=== PATIENT | female | born 1935 | race Caucasian/White ===

== ENCOUNTER 2019-08-23 16:41 | Inpatient (IN) | payer OTHER ==
[2019-08-23] MEDS ORDERED: ACETAMINOPHEN 1000 MG/100 ML VIAL (NON FORMULARY) IVPB ONE (17:32)
[2019-08-23] MEDS ORDERED: ACETAMINOPHEN INJECTION 100 ML IVPB ONE (17:45)
[2019-08-23 17:51] LABS: BASO % 0.5 % (0-2.0); EOS % 0.6 % (0-4.5); HEMATOCRIT 36.7 % (32.4-45.2); HEMOGLOBIN 12.2 GM/dL (10.7-15.3); LYMPH % 10.9 % (8-40); MCH 28.3 pg (25.7-33.7); MCHC 33.4 g/dl (32.0-36.0); MEAN CELL VOLUME 84.9 fl (80-96); MEAN PLT VOLUME 7.1 fl (7.5-11.1); MONO % 7.2 % (3.8-10.2); NEUT % 80.8 % (42.8-82.8); PLATELET COUNT 411 K/MM3 (134-434); RBC 4.32 M/mm3 (3.60-5.2); RDW 13.8 % (11.6-15.6); WHITE BLOOD COUNT 15.3 K/mm3 (4.0-10.0)
--- NOTE | 2019-08-23 17:55 | PDOC ---
History of Present Illness - General Chief Complaint: Back Pain Stated Complaint: LOWER BACK PAIN Time Seen by Provider: 08/23/19 17:10 - History of Present Illness Initial Comments: 08/23/19 18:01 Pt is an 84y/o female with HTN, DM, and breast cancer s/p lumpectomy 5 years ago who presents with sudden onset back pain 7 days ago. Pt had a fall down the stairs in March and broke her left ankle. She was doing physical therapy exercises on her back and flexed her left leg at the hip then felt pain in her lower back. She is under the care of Dr. Ivan for her ankle and was given Tramadol, Skelaxin, and steroids with no improvement in symptoms. She reports tightness in b/l buttocks radiating into lateral legs below the knee. For the last 3 days she has had pain so severe that she is unable to walk. Pain is currently 8/10. She reports a remote hx of lumbar herniated disc but has not had problems in years. Pt reports she has been eating normally but may be drinking less than usual. Past History - Past Medical History Allergies/Adverse Reactions: Allergies Allergy/AdvReac Type Severity Reaction Status Date / Time No Known Allergies Allergy Verified 08/23/19 16:53 Home Medications: Ambulatory Orders Calcium Carbonate/Vitamin D3 [Calcium 600 + Vit D Tablet] 1 tab PO BID 08/23/19 Lactobacillus Acidophilus [Acidophilus] 1 each PO BID 08/23/19 Losartan/Hydrochlorothiazide [Losartan-Hctz 100-25 mg Tab] 1 tab PO DAILY Metaxalone [Skelaxin] 800 mg PO Q8H PRN 08/23/19 Metformin HCl [Glucophage] 1,000 mg PO BID 08/23/19 Metoprolol Succinate 100 mg PO DAILY 08/23/19 Naproxen 500 mg PO Q12H PRN 08/23/19 Prednisone 10 mg PO Q12H 08/23/19 Tramadol HCl 50 mg PO Q6H PRN 08/23/19 Amlodipine Besylate [Norvasc -] 5 mg PO DAILY 08/24/19 COPD: No Diabetes: Yes HTN: Yes Other medical history: HERNIATED DISC - Immunization History Immunization Up to Date: No - Psycho Social/Smoking Cessation Hx Smoking History: Never smoked Have you smoked in the past 12 months: No Information on smoking cessation initiated: No Hx Alcohol Use: No Drug/Substance Use Hx: No Review of Systems - Review of Systems Constitutional: No: Chills, Fever Respiratory: No: Symptoms reported Cardiac (ROS): No: Symptoms Reported ABD/GI: No: Nausea, Vomiting : No: Dysuria Musculoskeletal: Yes: Back Pain Integumentary: No: Bruising Neurological: No: Headache *Physical Exam - Vital Signs Last Vital Signs Temp Pulse Resp BP Pulse Ox 98.4 F 85 16 154/63 99 08/23/19 16:55 08/23/19 16:55 08/23/19 16:55 08/23/19 16:55 08/23/19 16:55 - Physical Exam General Appearance: Yes: Nourished, Appropriately Dressed, Other (difficulty getting comfortable in bed). No: Apparent Distress HEENT: positive: EOMI, JACOBY Neck: positive: Trachea midline Respiratory/Chest: positive: Lungs Clear Cardiovascular: positive: Regular Rhythm, Regular Rate. negative: Murmur Gastrointestinal/Abdominal: positive: Normal Bowel Sounds. negative: Tender Musculoskeletal: positive: Muscle Spasm (b/l glutes with tight IT bands), Other (no saddle anesthesia). negative: Vertebral Tenderness Neurologic: positive: attending ambulatory care II-XII NML intact, Fully Oriented, Alert, Normal Mood/ Affect, Motor Strength 5/5. negative: Sensory Deficit ED Treatment Course - LABORATORY CBC & Chemistry Diagram: 08/25/19 07:10 08/25/19 07:10 - ADDITIONAL ORDERS Additional order review: 08/23/19 17:35 RBC 4.32 MCV 84.9 MCHC 33.4 RDW 13.8 MPV 7.1 L Neutrophils % 80.8 Lymphocytes % 10.9 Monocytes % 7.2 Eosinophils % 0.6 Basophils % 0.5 - Medications Given in the ED: ED Medications Discontinued Medications Generic Name Dose Route Start Last Admin Trade Name Freq PRN Reason Stop Dose Admin Acetaminophen 1,000 mg 08/23/19 17:32 08/23/19 17:54 Ofirmev Injection - IVPB 08/23/19 17:33 1,000 mg ONCE ONE Administration Medical Decision Making - Medical Decision Making 08/23/19 18:20 Pt is an 84y/o female with HTN, DM, and breast cancer s/p lumpectomy 5 years ago who presents with sudden onset back pain 7 days ago following PT exercise of left hip flexion. ddx: muscle spasm, sciatica, disc herniation, cauda equina orders: CBC, CMP, Ofrimev Pt reports decreased numbness and tingling in legs following Ofrimev but back pain is still present. 08/23/19 18:25 WBC 15.3, likely reactive from steroids elevated BUN, no comparison; BG 188 08/23/19 19:05 CT lumbar w/o contrast, Robaxin, and Tylenol #3, will give Zofran ODT if pt becomes nauseous 08/23/19 23:05 Pt reports pain was not controlled for long. Will give morphine 2mg IV and reassess. CT read pending. 08/24/19 00:05 Disc bulging at L2-L3, L3-L4 disc bulging with foraminal narrowing, L4-L5 disc bulging with probable right side herniated component affecting the right anterior canal and right foramen. It may also impress on the right L5 nerve root in the lateral recess, and the right L4 nerve root as it exits. Pt is unable to ambulate. Pain is improved with morphine. Will have pt admitted for inability to ambulate. Discharge - Discharge Information Problems reviewed: Yes Clinical Impression/Diagnosis: Muscle spasm, Lumbar disc herniation with radiculopathy Condition: Stable - Follow up/Referral - Patient Discharge Instructions - Post Discharge Activity
[2019-08-23 18:19] LABS: ALBUMIN 3.5 g/dl (3.4-5.0); BILIRUBIN,TOTAL 0.2 mg/dL (0.2-1); BLOOD UREA NITROGEN 31.8 mg/dL (7-18); CALCIUM 9.3 mg/dL (8.5-10.1); CREATININE 0.8 mg/dL (0.55-1.3); MAGNESIUM 1.8 mg/dL (1.8-2.4); POTASSIUM 3.8 mmol/L (3.5-5.1); TOT PROT 7.5 g/dl (6.4-8.2)
--- NOTE | 2019-08-23 18:20 | PDOC ---
Attending Attestation - Resident Resident Name: [email or web address] - ED Attending Attestation I have performed the following: I have examined & evaluated the patient, The case was reviewed & discussed with the resident, I agree w/resident's findings & plan, Exceptions are as noted - HPI HPI: 84 yo F history HTN, DM, breast CA s/p lumpectomy 5 years ago presents with 1 week of low back pain. She states she has been in PT for a few months for an ankle fracture, and her exercises have been increasing in intensity since that time. Recently she states she did not have any direct trauma, but has been working harder at PT, and states that over the past week it has progressively worsened. Now she is unable to stand and walk. Denies weakness. Pain radiates from back down into both legs and feet, mainly the lateral areas. Pain is severe. Not responding to NSAIDs, steroids, and muscle relaxers. - Physicial Exam PE: GENERAL: Awake, alert, and fully oriented, in no acute distress HEAD: No signs of trauma EYES: PERRLA, EOMI, sclera anicteric, conjunctiva clear ENT: Auricles normal inspection, hearing grossly normal, nares patent, oropharynx clear without exudates. Moist mucosa NECK: Normal ROM, supple, no lymphadenopathy, JVD, or masses LUNGS: Breath sounds equal, clear to auscultation bilaterally. No wheezes, and no crackles HEART: Regular rate and rhythm, normal S1 and S2, no murmurs, rubs or gallops ABDOMEN: Soft, nontender, normoactive bowel sounds. No guarding, no rebound. No masses EXTREMITIES: +Muscle spasms to the B/L buttocks and outer thighs. SLR positive at 20 degrees on L, 45 degrees on R. Limited ROM of the lower extremities due to severe back and leg pain. Upper extremities with normal range of motion, no edema. No clubbing or cyanosis. No cords, erythema, or tenderness NEUROLOGICAL: Cranial nerves II through XII grossly intact. Normal speech. Motor and sensation intact. Unable to test gait due to severe pain SKIN: Warm, dry, normal turgor, no rashes or lesions noted. - Medical Decision Making Discussed pain options with family- as tramadol is not working, will try Tylenol #3. If no improvement, will give a dose of percocet. If both fail, will give IV pain meds, at which point she will need admission for pain control. Will give robaxin for the significant muscle spasms. Will obtain Lumbar CT, as she does not have recent imaging.
[2019-08-23] MEDS ORDERED: ACETAMINOPHEN WITH CODEINE 300MG/30MG TABLET PO ONE (19:00)
[2019-08-23] MEDS ORDERED: METHOCARBAMOL 500 MG TABLET PO ONE (19:01)
[2019-08-23] MEDS ORDERED: ACETAMINOPHEN WITH CODEINE 300MG/30MG TABLET ONE (19:23)
[2019-08-23] MEDS ORDERED: METHOCARBAMOL 500 MG TABLET ONE (19:23)
[2019-08-23] MEDS ORDERED: morphine CARPU-JECT 4 MG/1 ML DISP.SYRIN IVPUSH ONE (22:52)
[2019-08-23] MEDS ORDERED: MORPHINE SULFATE 2 MG/ML VIAL ONE (23:22)
--- NOTE | 2019-08-24 00:54 | PN ---
Teaching Attending Note Name of Resident: Vito Arora ATTENDING PHYSICIAN STATEMENT I saw and evaluated the patient. I reviewed the resident's note and discussed the case with the resident. I agree with the resident's findings and plan as documented. SUBJECTIVE: 84y/o female with HTN, DM, and breast cancer s/p lumpectomy 5 years ago who presents with a complaint of back pain which she has had for about a week, status post fallMarch 2019, subsequently was undergoing physical therapy and experience back pain which started about 2 weeks ago during her physical therapy. She has lumbar back pain which radiates down both lower extremities. Has been taking prednisone, tramadol, naproxen with some relief however pain is worsened over the past couple days prompting patient to seek medical attention. No loss of bladder or bowel control. OBJECTIVE: Last Vital Signs Temp Pulse Resp BP Pulse Ox 98.4 F 73 16 142/76 97 08/23/19 16:55 08/24/19 00:00 08/24/19 00:00 08/24/19 00:00 08/24/19 00:00 GENERAL: Well developed, well nourished. Awake and alert. No acute distress. HEENT: Normocephalic, atraumatic. PERRLA, EOMI. No conjunctival pallor. Sclera are non- icteric. Moist mucous membranes. Oropharynx is clear. NECK: Supple. Full ROM. No JVD. Carotid pulses 2+ and symmetric, without bruits. No thyromegaly. No lymphadenopathy. CARDIOVASCULAR: Regular rate and rhythm. No murmurs, rubs, or gallops. Distal pulses are 2+ and symmetric. PULMONARY: No evidence of respiratory distress. Lungs clear to auscultation bilaterally. No wheezing, rales or rhonchi. ABDOMINAL: Soft. Non-tender. Non-distended. No rebound or guarding. No organomegaly. Normoactive bowel sounds. MUSCULOSKELETAL Normal range of motion at all joints. No bony deformities or tenderness. No CVA tenderness. EXTREMITIES: No cyanosis. No clubbing. No edema. No calf tenderness. SKIN: Warm and dry. Normal capillary refill. No rashes. No jaundice. NEUROLOGICAL: Positive straight leg raise bilaterally, negative patellar hyperreflexia bilaterally PSYCHIATRIC: Cooperative. Good eye contact. Appropriate mood and affect. Abnormal Lab Results 08/23/19 08/23/19 17:35 17:35 WBC 15.3 H MPV 7.1 L Absolute Neuts (auto) 12.4 H BUN 31.8 H Random Glucose 188 H Imaging studies reviewed CT of lumbar spine without contrast was performedslight radha-listhesis of L3 on L4, had L2-3 there is disc bulging with possible left lateral herniated component narrowing the left foramen. At L3-4 disc bulging with possible left lateral herniated component narrowing the left foramen. At L3-4, disc bulging, radha-listhesis and posterior element hypertrophy result in spinal canal and bilateral foraminal narrowing. L4-5 disc bulging with a probable right-sided herniated component affecting the right anterior canal and right foramen. ASSESSMENT AND PLAN: 84-year-old woman with severe back pain, significant spondylosis, herniated disks as described above on lumbar CT. Bilateral sciatica, unable to ambulate as a result. Admit to MedSurg Dexamethasone 10 mg IV stat and then every 6 hours Morphine 2 mg IV prn Bedrest and fall precautions Physical therapy evaluation Neurosurgery evaluation for possible surgical intervention #HTN- -Continue with home dose metoprolol succinate, losartan/hydrochlorothiazide Salt restriction #DM NovoLog sliding scale Glargine insulin Diabetic diet A1c DVT prophylaxisheparin subcutaneously
--- NOTE | 2019-08-24 01:32 | HP ---
CHIEF COMPLAINT: back pain PCP: Dr. Metz HISTORY OF PRESENT ILLNESS: Patient is an 84 year old female with history of recent left ankle fracture, hypertension, diabetes mellitus, breast cancer (s/p lumpectomy) presents with complaint of back pain. States symptoms began after she fell down stairs and broke her left ankle in March 2019. she has been going to physical therapy, and notes that approx two weeks ago her back pain began after performing supine leg lifting exercises. Describes the pain as a squeezing pressure that originates in her lumbar spine, and radiates down posterior/ medial aspect of left leg. Patient visited her orthopedic physician (Dr. Foley) who prescribed Prednisone, Metaxalone, Tramadol, Naproxen. However, the pain has progressed over the past few days, worsening to point that patient had difficulty getting up from bed, and was unable to ambulate. Denies bowel or bladder incontinence. Denies any recent trauma subsequent to her fall in March. ER course was notable for: (1) CT lumbar spine (2) (3) Recent Travel: denies PAST MEDICAL HISTORY: left ankle fracture, hypertension, diabetes mellitus, breast cancer PAST SURGICAL HISTORY: lumpectomy right breast (aprox 5 years ago), cholecystectomy, Family history -Mother: hypertension, stroke -Father: hypertension, ?cardiac history Social History: Patient has been living with her children who were assisting the patient with activities of daily living. Currently requires wheelchair to ambulate (formerly ambulated without cane or walker). Smoking: Endorses 6 pack year history, quit at 25 years old Alcohol: Denies alcohol consumption Drugs: Denies illicit drug use Allergies No Known Allergies Allergy (Verified 08/23/19 16:53) HOME MEDICATIONS: Home Medications Medication Instructions Recorded Calcium Carbonate/Vitamin D3 1 tab PO BID 08/23/19 [Calcium 600 + Vit D Tablet] Lactobacillus Acidophilus 1 each PO BID 08/23/19 [Acidophilus] Losartan/Hydrochlorothiazide 1 tab PO DAILY 08/23/19 [Losartan-Hctz 100-25 mg Tab] Metaxalone [Skelaxin] 800 mg PO Q8H PRN 08/23/19 Metformin HCl [Glucophage] 1,000 mg PO BID 08/23/19 Metoprolol Succinate 100 mg PO DAILY 08/23/19 Naproxen 500 mg PO Q12H PRN 08/23/19 Prednisone 10 mg PO Q12H 08/23/19 Tramadol HCl 50 mg PO Q6H PRN 08/23/19 REVIEW OF SYSTEMS CONSTITUTIONAL: Absent: fever, chills, diaphoresis, generalized weakness, malaise, loss of appetite, weight change HEENT: Absent: rhinorrhea, nasal congestion, throat pain, throat swelling, difficulty swallowing, mouth swelling, ear pain, eye pain, visual changes CARDIOVASCULAR: Absent: chest pain, syncope, palpitations, irregular heart rate, lightheadedness , peripheral edema RESPIRATORY: Absent: cough, shortness of breath, dyspnea with exertion, orthopnea, wheezing, stridor, hemoptysis GASTROINTESTINAL: Absent: abdominal pain, abdominal distension, nausea, vomiting, diarrhea, constipation, melena, hematochezia GENITOURINARY: Absent: dysuria, frequency, urgency, hesitancy, hematuria, flank pain, genital pain MUSCULOSKELETAL: Admits: back pain. Absent: myalgia, arthralgia, joint swelling, neck pain SKIN: Absent: rash, itching, pallor HEMATOLOGIC/IMMUNOLOGIC: Absent: easy bleeding, easy bruising, lymphadenopathy, frequent infections ENDOCRINE: Absent: unexplained weight gain, unexplained weight loss, heat intolerance, cold intolerance NEUROLOGIC: Absent: headache, focal weakness or paresthesias, dizziness, unsteady gait, seizure, mental status changes, bladder or bowel incontinence PSYCHIATRIC: Absent: anxiety, depression, suicidal or homicidal ideation, hallucinations. PHYSICAL EXAMINATION Vital Signs - 24 hr 08/23/19 08/24/19 16:55 00:00 Temperature 98.4 F Pulse Rate 85 Pulse Rate [ 73 Left Radial] Respiratory 16 16 Rate Blood Pressure 154/63 Blood Pressure 142/76 [Left Arm] O2 Sat by Pulse 99 97 Oximetry (%) GENERAL: The patient is awake, alert, and fully oriented, in no acute distress. HEAD: Normocephalic, atraumatic. EYES: PERRL, extraocular movements intact, sclera anicteric, conjunctiva clear. ENT: Oropharynx clear, without erythema or exudates. Moist mucous membranes. NECK: Trachea midline, full range of motion. Supple without lymphadenopathy. LUNGS: Breath sounds equal, clear to auscultation bilaterally. No wheezes, no crackles. No accessory muscle use. HEART: Regular rate and rhythm. S1, S2 without murmur, rub or gallop. ABDOMEN: Soft, nondistended, nontender to light and deep palpation x4 quadrants. No rebound tenderness, no guarding. Normoactive bowel sounds x4 quadrants. No hepatosplenomegaly, no masses appreciated. EXTREMITIES: 2+ radial, dorsalis pedis pulses bilaterally. Warm, well-perfused. No lower extremity edema bilaterally. Left ankle s/p fracture. NEUROLOGICAL: Cranial nerves II through XII grossly intact. Normal speech. Lower extremity strength 4/5 in hip flexion, extension, and 5/5 knee flexion, extension, dorsiflexion, plantarflexion. Sensation grossly intact bilateral upper and lower extremities. PSYCH: Normal mood, normal affect upon my encounter. SKIN: Warm, dry. 1cm area or erythema at left medial malleolus. Laboratory Results - last 24 hr 08/23/19 08/23/19 17:35 17:35 WBC 15.3 H RBC 4.32 Hgb 12.2 Hct 36.7 MCV 84.9 MCH 28.3 MCHC 33.4 RDW 13.8 Plt Count 411 MPV 7.1 L Absolute Neuts (auto) 12.4 H Neutrophils % 80.8 Lymphocytes % 10.9 Monocytes % 7.2 Eosinophils % 0.6 Basophils % 0.5 Nucleated RBC % 0 Sodium 137 Potassium 3.8 Chloride 100 Carbon Dioxide 27 Anion Gap 10 BUN 31.8 H Creatinine 0.8 Est GFR (CKD-EPI)AfAm 79.57 Est GFR (CKD-EPI)NonAf 68.66 Random Glucose 188 H Calcium 9.3 Magnesium 1.8 Total Bilirubin 0.2 AST 17 ALT 29 Alkaline Phosphatase 66 Total Protein 7.5 Albumin 3.5 ASSESSMENT/PLAN: Patient is an 84 year old female with history of recent left ankle fracture, hypertension, diabetes mellitus, breast cancer (s/p lumpectomy) presents with complaint of back pain. Lumbar spine anterolisthesis -CT lumbar spine reveals CT of lumbar spine reveals anterolisthesis of L3, L4, disc bulging with possible left lateral herniated component narrowing the left foramen L2-3, and L3-L4. L4-5 disc bulging with a probable right-sided herniated component affecting the right anterior canal and right foramen. Possible L5 nerve root impingement. Follow official read. -Will obtain MRI spine to further evaluate -Neurosurgery consult (Dr. Orona) -Physical therapy evaluation -Decadron 10mg IV Q6 hours -Continue Metaxalone 800mg PO TID. Holding NSAIDs pending neurosurgery evaluation. -Ofirmev 1000mg IV Q6 hours PRN for pain 1-5 -Morphine 2mg IV Q6 hours PRN for pain 6-10 Hypertension -Losartan 100mg PO daily -Hydrochlorothiazide 25mg PO daily -Metoprolol 100mg PO daily Diabetes mellitus -Insulin sliding scale ACHS -Fingerstick blood glucose monitoring ACHS FEN -IV normal saline at 100mL/ hour -Follow BMP -Diabetic, sodium diet Prophylaxis -SCDs bilateral lower extremities Disposition -Admit to medical- surgical floor. Visit type - Emergency Visit Emergency Visit: Yes ED Registration Date: 08/24/19 Care time: The patient presented to the Emergency Department on the above date and was hospitalized for further evaluation of their emergent condition. - New Patient This patient is new to me today: Yes Date on this admission: 08/24/19 - Critical Care Critical Care patient: No ATTENDING PHYSICIAN STATEMENT I saw and evaluated the patient. I reviewed the resident's note and discussed the case with the resident. I agree with the resident's findings and plan as documented. SUBJECTIVE: OBJECTIVE: ASSESSMENT AND PLAN:
[2019-08-24] MEDS ORDERED: SODIUM CHLORIDE 1,000 ML IV SCH (01:45)
[2019-08-24] MEDS ORDERED: MORPHINE SULFATE 2 MG/ML VIAL ONE (02:11)
[2019-08-24] MEDS: MORPHINE SULFATE 2 MG/ML VIAL IM PRN ×3 (02:15→15:30)
[2019-08-24] MEDS ORDERED: PATIENT'S OWN MEDICATION (NON-FORMULARY) (Metaxalone [Skelaxin] 800 MG) PO PRN (03:34)
[2019-08-24] MEDS ORDERED: HYDROCHLOROTHIAZIDE 25 MG TABLET (FP) PO ONE (03:45)
[2019-08-24] MEDS: ACETAMINOPHEN 1000 MG/100 ML VIAL (NON FORMULARY) IVPB PRN ×3 (04:38→21:18)
[2019-08-24] MEDS: DEXAMETHASONE SOD PHOSPHATE 10 MG/1 ML VIAL IVPUSH SCH ×4 (06:26→21:18)
[2019-08-24] MEDS: INSULIN SLIDING SCALE (NOVOLOG) 1 VIAL SQ SCH ×3 (06:29→17:57)
[2019-08-24 07:23] LABS: HEMATOCRIT 33.9 % (32.4-45.2); HEMOGLOBIN 11.5 GM/dL (10.7-15.3); MCH 28.8 pg (25.7-33.7); MEAN CELL VOLUME 84.5 fl (80-96); MEAN PLT VOLUME 7.1 fl (7.5-11.1); PLATELET COUNT 362 K/MM3 (134-434); RBC 4.01 M/mm3 (3.60-5.2); RDW 14.2 % (11.6-15.6); WHITE BLOOD COUNT 11.1 K/mm3 (4.0-10.0)
[2019-08-24 07:32] LABS: INR 1.08 (0.83-1.09); PROTHROMBIN TIME (PATIENT) 12.8 SEC (9.7-13.0)
[2019-08-24 07:49] LABS: ALBUMIN 3.2 g/dl (3.4-5.0); BILIRUBIN,TOTAL 0.3 mg/dL (0.2-1); BLOOD UREA NITROGEN 31.1 mg/dL (7-18); CALCIUM 8.8 mg/dL (8.5-10.1); CREATININE 0.7 mg/dL (0.55-1.3); MAGNESIUM 1.9 mg/dL (1.8-2.4); PHOSPHOROUS 3.3 mg/dL (2.5-4.9); POTASSIUM 3.3 mmol/L (3.5-5.1); TOT PROT 6.7 g/dl (6.4-8.2)
[2019-08-24] MEDS ORDERED: PT OWN MED DRAWER 7, Y5N ONE (09:06)
[2019-08-24] MEDS: LOSARTAN 50MG/HCTZ 12.5MG 1 TAB (FP) PO SCH (09:39)
[2019-08-24] MEDS: DOCUSATE SODIUM 100 MG CAPSULE (FP) PO SCH ×2 (09:39→21:18)
[2019-08-24] MEDS ORDERED: INSULIN (NOVOLOG) ASPART 100 UNITS/ML 10ML VIAL ONE (11:55)
[2019-08-24] MEDS: oxyCODONE HCL 5 MG TABLET PO PRN (14:18)
--- NOTE | 2019-08-24 14:23 | PN ---
Progress Note (short form) - Note Progress Note: Subjective: has pain in lower back with radiation to both lower extremities down to the ankle. no N/v, no fever . has no urinary incontinence or fecal incontinence. No tingling. no recent trauma, but had a fall in mar. denies loss of sensation in perineal area. Objective: Vital Signs: Last Vital Signs Temp Pulse Resp BP Pulse Ox 98.7 F 67 18 167/76 97 08/24/19 12:22 08/24/19 12:22 08/24/19 12:22 08/24/19 12:22 08/24/19 09:00 Laboratory Results - last 24 hr 08/23/19 08/23/19 08/24/19 17:35 17:35 06:28 WBC 15.3 H RBC 4.32 Hgb 12.2 Hct 36.7 MCV 84.9 MCH 28.3 MCHC 33.4 RDW 13.8 Plt Count 411 MPV 7.1 L Absolute Neuts (auto) 12.4 H Neutrophils % 80.8 Lymphocytes % 10.9 Monocytes % 7.2 Eosinophils % 0.6 Basophils % 0.5 Nucleated RBC % 0 PT with INR INR PTT (Actin FS) Sodium 137 Potassium 3.8 Chloride 100 Carbon Dioxide 27 Anion Gap 10 BUN 31.8 H Creatinine 0.8 Est GFR (CKD-EPI)AfAm 79.57 Est GFR (CKD-EPI)NonAf 68.66 POC Glucometer 101 Random Glucose 188 H Hemoglobin A1c % Calcium 9.3 Phosphorus Magnesium 1.8 Total Bilirubin 0.2 AST 17 ALT 29 Alkaline Phosphatase 66 Total Protein 7.5 Albumin 3.5 08/24/19 08/24/19 08/24/19 06:42 06:42 06:42 WBC 11.1 H RBC 4.01 Hgb 11.5 Hct 33.9 MCV 84.5 MCH 28.8 MCHC 34.0 RDW 14.2 Plt Count 362 MPV 7.1 L Absolute Neuts (auto) Neutrophils % Lymphocytes % Monocytes % Eosinophils % Basophils % Nucleated RBC % PT with INR 12.80 INR 1.08 PTT (Actin FS) 28.0 Sodium 137 Potassium 3.3 L Chloride 100 Carbon Dioxide 31 Anion Gap 5 L BUN 31.1 H Creatinine 0.7 Est GFR (CKD-EPI)AfAm 93.52 Est GFR (CKD-EPI)NonAf 80.69 POC Glucometer Random Glucose 100 Hemoglobin A1c % Calcium 8.8 Phosphorus 3.3 Magnesium 1.9 Total Bilirubin 0.3 AST 16 ALT 28 Alkaline Phosphatase 59 Total Protein 6.7 Albumin 3.2 L 08/24/19 08/24/19 06:42 11:53 WBC RBC Hgb Hct MCV MCH MCHC RDW Plt Count MPV Absolute Neuts (auto) Neutrophils % Lymphocytes % Monocytes % Eosinophils % Basophils % Nucleated RBC % PT with INR INR PTT (Actin FS) Sodium Potassium Chloride Carbon Dioxide Anion Gap BUN Creatinine Est GFR (CKD-EPI)AfAm Est GFR (CKD-EPI)NonAf POC Glucometer 315 Random Glucose Hemoglobin A1c % 6.9 H Calcium Phosphorus Magnesium Total Bilirubin AST ALT Alkaline Phosphatase Total Protein Albumin Physical Exam: NAD. awake, alert, cooperative. MMM CV: RRR, no MRG Lungs: CTAB Abd: soft, NT, ND, NL BS. Ext : No edema or erythema Neuro of LE: RLE: hip felxion 4/5. knee flexion and extension 4/5. ankle dorsiflexion/ plantar flexion 5/5 . LLE: hip felxion 5/5. knee flexion and extension 5/5. ankle dorsiflexion/ plantar flexion 5/5 . Sensation to light touch: decreased in RLE compared to L. Reflexes: Knee jerk 2+ b/l. Rectal tone decreased. Breast exam: L breast with no nodule felt, Nl skin and nipple . R breast with surgical scar just below the nipple. a small mass 2 cm in diameter is felt just R to the nipple under the skin. Not tender . n o lymph nodes in R axilla felt. Imaging: MRI report reviewed. CT L spine report pending Assessment/Plan: 84 y/o lady with h/o R breast cancer s/p lumpectomy and radiation , HTN, DM, and chronic back pain who presented with worsening lower back pain with radiation to LE and inability to walk 1- Lower back pain: due to mass in Sacral spine compressing on nerve roots. Decreased rectal tone is concerning for qauda equina syndrome. mass is likely a metastatic disease , from either breast primary or other ( ? lung ,h/o smoking ) . - cont steroids for now - Spoke to Dr. Orona in consultation. Most likely , she will need surgical bx , stabilization, and decompression . she will be evaluated soon. - will get CT of chest to r/o lung mass. - She will probably need radiation if tumor is sensitive to Rtx - Will consult oncology, for further advise. also, ? hormonal therapy. - Not sure if we need brain MRi as well. will consult with Onc - last mammo was few months ago. on exam breast nodule in R breast 2- Leukocytosis : is likely due to being on predniosne as out pt ( 2 weeks ) 3- h/o DM : hold metformin and cont SSI ( dc HS coverage ) 4- h/o HTN: - cont home meds Losartan/HCTZ and metoprolol - dc IVF 5- DVT px: will hold chemical for sx tomorrow. patient was informed of her diagnosis. Also , son Tommy was updated over the phone . Visit type - Emergency Visit Emergency Visit: Yes ED Registration Date: 08/24/19 Care time: The patient presented to the Emergency Department on the above date and was hospitalized for further evaluation of their emergent condition. - New Patient This patient is new to me today: Yes Date on this admission: 08/24/19 - Critical Care Critical Care patient: No
--- NOTE | 2019-08-24 20:13 | CONSULT ---
Consult - text type - Consultation Consultation Note: NEUROSURGERY CONSULTATION Lorie Hong is an 84 year old female who has a history of breast cancer who was injured in a fall in March 2019 where she fractured her Left ankle. She has been wearing an orthosis until recently when it was removed and she started Physical Therapy. During one of these sessions, she began to complain of back pain. She has had progressive gait difficulties, especially over the past two weeks and progressed from walking with assistance to using a walker to now being unable to walk. She is essentially bedbound since sitting up or otherwise bearing weight greatly increases a constant pain in her lower back. She has less pain while recumbent, however, does not become pain free. She has increased pain from vibrations and jostling and notes that when the ambulance which brought her to the [facility] ED would hit bumps, that she would experience paroxysms of pain. This pattern of pain with weight bearing and jostling/vibration is suggestive of mechanical instability. She has grossly full strength in her legs and she has normal sensation although she has diminished rectal tone and some urinary dribbling. She feels that she cannot completely empty her bladder. CT Lumbar demonstrates degenerative changes at L34 and L45 with facet hypertrophy and arthropathy as well as sclerosis and vacuum within the facets. There is also suggestion of disc protrusion, listheses ligamentum flavum hypertrophy and spinal stenosis. There is loss of disc height and endplate sclerosis at L34, L45 and L5S1. These findings prompted MRI of the Lumbar Spine. MRI Lumbar confirms these degenerative findings, however, is more notable for a lesion which occupies most of the S1 and S2 vertebral bodies. Although metastatic breast cancer remains high on the differential diagnosis list, there is a possibility of a secondary malignancy, primary tumor or, less likely, an infectious process such as tuberculosis. I had a long discussion with the patient and family concerning the major medical concerns which I identified as: 1) Need for a tissue diagnosis 2) Need to stabilize spinopelvic junction 3) Need to decompress cauda equina 4) Need to control pain 5) Need to guide adjuvant treatment (likely chemotherapy, immunotherapy, Radiation therapy or hormonal therapy) 6) Need to address Lumbar degenerative changes We discussed how the patient is largely bedbound now and likely will not regain safe and pain controlled ambulation nor control of this process without a tissue diagnosis and plan of care. After reviewing her condition in detail, I discussed the potential for a single stage posterior procedure which might facilitate the majority of these goals. I described the risks, benefits and alternatives to L3-S2 decompression, tumor debulking/biopsy and L3-S2 posterior instrumentation in great detail. I explained that the risks included, but were not limited to: , coma, paralysis, bleeding, infection, CSF leak possibly requiring spinal drainage or additional surgery, failure to fuse, instrumentation migration/malposition/ malfunction, failure to establish a tissue diagnosis and the need for additional therapy. I offered them the option of seeking another opinion or another surgeon. All questions were answered. Informed consent was obtained. I offered them a day to contemplate their options and I plan to discuss the case further with Dr. Romero regarding her potential medical fitness for such a procedure as well as further review of his imaging. I will discuss potential surgery on Monday, August 26, 2019 when I speak with them on Sunday, August 25, 2019.
[2019-08-24] MEDS ORDERED: INSULIN (NOVOLOG) ASPART 100 UNITS/ML 10ML VIAL SQ ONE (22:03)
[2019-08-25] MEDS: DEXAMETHASONE SOD PHOSPHATE 10 MG/1 ML VIAL IVPUSH SCH ×4 (02:37→21:06)
[2019-08-25] MEDS: INSULIN SLIDING SCALE (NOVOLOG) 1 VIAL SQ SCH ×4 (06:33→22:31)
[2019-08-25] MEDS: oxyCODONE HCL 5 MG TABLET PO PRN ×3 (06:53→21:05)
[2019-08-25 07:53] LABS: HEMATOCRIT 35.3 % (32.4-45.2); MCH 28.6 pg (25.7-33.7); MCHC 34.1 g/dl (32.0-36.0); MEAN PLT VOLUME 7.3 fl (7.5-11.1); MONO % 2.3 % (3.8-10.2); NEUT % 89.7 % (42.8-82.8); PLATELET COUNT 420 K/MM3 (134-434); RBC 4.21 M/mm3 (3.60-5.2); RDW 13.8 % (11.6-15.6); WHITE BLOOD COUNT 12.3 K/mm3 (4.0-10.0)
[2019-08-25 08:15] LABS: BLOOD UREA NITROGEN 35.3 mg/dL (7-18); CALCIUM 8.9 mg/dL (8.5-10.1); CREATININE 0.8 mg/dL (0.55-1.3); POTASSIUM 3.7 mmol/L (3.5-5.1)
[2019-08-25] MEDS ORDERED: PT OWN MED DRAWER 7, Y5N ONE (09:20)
[2019-08-25] MEDS: LOSARTAN 50MG/HCTZ 12.5MG 1 TAB (FP) PO SCH (09:31)
[2019-08-25] MEDS: DOCUSATE SODIUM 100 MG CAPSULE (FP) PO SCH ×2 (09:31→21:05)
--- NOTE | 2019-08-25 09:32 | PN ---
Progress Note (short form) - Note Progress Note: NEUROSURGERY SECOND OPINION DICTATED Pt examined Chart reviewed History obtained Friend at bedside 3 months h/o LBP to L lat thigh/calf/foot now also R sided; B LE paresthesia Urinary frequency but no bowel or bladder incontinence PE: AF, VSS HEENT- NC/AT; Neck- supple; Cor- RRR; Lungs- CTA B; Abd- benign; Ext- no sign of DVT, L ankle callus CN- intact; Motor- 5 B IP/Quad/TA/EHL/gastroc except L ankle pain limited 4+ and R IP4+ pain limited; Sensation- intact LT/vibration, no perineal numbness; DTR- 2+ except diminished B ankle reflexes CT and MRI LS spine - L3-4 spondylolisthesis, L4-5 and L5-S1 DDD; lytic/ expansile lesion S1 and S2 with posterior cortex bowing and anterior thecal sac impingement; B S1 root impingement; Axial images only down to about S1; R iliac bone involvement; no gadolinium given for MRI 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 Cont Decadron and GI prophylaxis Neurontin for paresthesia Recommend CT guided bx of S1 lesion Obtain prior path report from [facility] Med onc input for hormonal tx and/or Chemo Rad onc input for palliative RT PET scan or at least CT chest/abd with nuc bone scan to better delineate disease , per med onc/medical team Surgical treatment would remove mostly if not exclusively normal tissue and has no chance of surgical cure or significant cytoreduction and pathology confirmation could be much easier/safer obtained by CT guided bx With significantly eroded sacrum spinal instrumentation will likely need to extend to ilium given marked S1 and S1 pathological lytic lesion, and such an extensive procedure on this 84 year old patient with DM is not recommended in my opinion; further, surgical intervention will likely be debilitating and necessarily delay needed chemo/hormonal tx and RT for weeks Recommendations d/w pt, friend at bedside, and medical team
[2019-08-25] MEDS ORDERED: MORPHINE SULFATE 2 MG/ML VIAL IVPUSH PRN (11:02)
[2019-08-25] MEDS: LIDOCAINE 5% TOPICAL PATCH TP SCH (11:41)
--- NOTE | 2019-08-25 12:18 | PN ---
Teaching Attending Note Name of Resident: Raimundo Ruiz ATTENDING PHYSICIAN STATEMENT I saw and evaluated the patient. I reviewed the resident's note and discussed the case with the resident. I agree with the resident's findings and plan as documented. SUBJECTIVE: No fever or chills. cont to have lower back pain with radiation to LEs. no urinary or bowel incontinence. No N/V. no SOB. was not able to walk with PT. OBJECTIVE: NAD. awake, alert, cooperative. MMM CV: RRR, no MRG Lungs: CTAB Abd: soft, NT, ND, NL BS. Ext : No edema or erythema Neuro of LE: RLE: hip felxion 5/5. knee flexion and extension 5/5. ankle dorsiflexion/ plantar flexion 5/5 . LLE: hip felxion 5/5. knee flexion and extension 5/5. ankle dorsiflexion/ plantar flexion 5/5 . Sensation to light touch: Nl on both LEs today Reflexes: Knee jerk 2+ b/l. 2+ R ankle jerk and 0 L ankle jerk . 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 other primary ( h/o smoking ) -case was d/w Dr. Orona, and Dr. John Appreciate Recs and help - d/w patient and her daughter. She would prefer to go with Ct guided Bx instead of surgical resection. - Rectal tone is still decreased today , but no urinary or fecal incontinence. rest of neuro exam as above. - cont decadron . - add higher dose of oxy and lidocaine patch - start neurontin - IR was contacted for a Bx, awaiting response. - Onc consult pending. ? hormonal therapy/? chemo. - place a Rad Onc consult. - CT of chest pending - Breast mass on exam. further Recs from Onc - ? bone scan - Dr. John to cont to follow 2- Leukocytosis: due to steroids . Monitor 3- h/o DM : hold metformin and cont SSI - add low dose levemir anticipating further elevation while on steroids. - has been on steroids x 2 weeks. avoid abrupt cessation 4- h/o HTN: - cont home meds Losartan/HCTZ and metoprolol 5- DVT px: will cont SCds. hold chemical for bx. will place on lovenox after Bx d/w patient and daughter at bedside
[2019-08-25] MEDS ORDERED: INSULIN (LEVEMIR) 100 UNITS/ML UNITS SQ ONE (12:30)
[2019-08-25] MEDS: GABAPENTIN 100 MG CAPSULE PO SCH ×2 (12:48→21:05)
[2019-08-25] MEDS: PANTOPRAZOLE 20 MG TABLET PO SCH (12:48)
--- NOTE | 2019-08-25 14:09 | EKG ---
Test Reason : Blood Pressure : / mmHG Vent. Rate : 067 BPM Atrial Rate : 067 BPM P-R Int : 162 ms QRS Dur : 072 ms QT Int : 408 ms P-R-T Axes : 049 -06 029 degrees QTc Int : 431 ms NORMAL SINUS RHYTHM NORMAL ECG NO PREVIOUS ECGS AVAILABLE Confirmed by Danny Hogan ([id number]) on 08/25/2019 2:08:35 PM Referred By: Art NELSON Confirmed By:Danny Hogan
--- NOTE | 2019-08-25 15:58 | PN ---
Physical Exam: SUBJECTIVE: Patient seen and examined NITHYAON Endorses frequent urgency. Denies urinary or fecal incontinence OBJECTIVE: Vital Signs Period Temp Pulse Resp BP Sys/Mendes Pulse Ox Last 24 Hr 98 F-98.7 F 68-92 18-20 136-157/61-80 94 GENERAL: The patient is awake, alert, and fully oriented, in no acute distress. HEAD: Normal with no signs of trauma. EYES: PERRL, extraocular movements intact, sclera anicteric, conjunctiva clear. No ptosis. ENT: Ears normal, nares patent, oropharynx clear without exudates, moist mucous membranes. NECK: Trachea midline, full range of motion, supple. LUNGS: Breath sounds equal, clear to auscultation bilaterally, no wheezes, no crackles, no accessory muscle use. HEART: Regular rate and rhythm, S1, S2 without murmur, rub or gallop. ABDOMEN: Soft, nontender, nondistended, normoactive bowel sounds, no guarding, no rebound. RECTAL: decrease rectal tone. Reduced anal wink. EXTREMITIES: 2+ pulses, warm, well-perfused, no edema. NEUROLOGICAL: Cranial nerves II through XII grossly intact. Pain with LLE hip flexion/extension w/ reduced strength, 4/5. TTP of lower midline L-spine. Gait not observed. PSYCH: Normal mood, normal affect. SKIN: Warm, dry, normal turgor, no rashes or lesions noted Laboratory Results - last 24 hr 08/24/19 08/24/19 08/25/19 17:54 21:56 06:32 WBC RBC Hgb Hct MCV MCH MCHC RDW Plt Count MPV Absolute Neuts (auto) Neutrophils % Lymphocytes % Monocytes % Eosinophils % Basophils % Nucleated RBC % Sodium Potassium Chloride Carbon Dioxide Anion Gap BUN Creatinine Est GFR (CKD-EPI)AfAm Est GFR (CKD-EPI)NonAf POC Glucometer 233 280 206 Random Glucose Calcium Blood Type Antibody Screen 08/25/19 08/25/19 08/25/19 07:10 07:10 07:10 WBC 12.3 H RBC 4.21 Hgb 12.0 Hct 35.3 MCV 84.0 MCH 28.6 MCHC 34.1 RDW 13.8 Plt Count 420 MPV 7.3 L Absolute Neuts (auto) 11.0 H Neutrophils % 89.7 H Lymphocytes % 8.0 D Monocytes % 2.3 L Eosinophils % 0.0 D Basophils % 0.0 Nucleated RBC % 0 Sodium 137 Potassium 3.7 Chloride 101 Carbon Dioxide 30 Anion Gap 6 L BUN 35.3 H Creatinine 0.8 Est GFR (CKD-EPI)AfAm 79.57 Est GFR (CKD-EPI)NonAf 68.66 POC Glucometer Random Glucose 200 H Calcium 8.9 Blood Type A POSITIVE Antibody Screen Negative 08/25/19 11:38 WBC RBC Hgb Hct MCV MCH MCHC RDW Plt Count MPV Absolute Neuts (auto) Neutrophils % Lymphocytes % Monocytes % Eosinophils % Basophils % Nucleated RBC % Sodium Potassium Chloride Carbon Dioxide Anion Gap BUN Creatinine Est GFR (CKD-EPI)AfAm Est GFR (CKD-EPI)NonAf POC Glucometer 312 Random Glucose Calcium Blood Type Antibody Screen Active Medications Generic Name Dose Route Start Last Admin Trade Name Freq PRN Reason Stop Dose Admin Dexamethasone Sodium Phosphate 10 mg 08/24/19 03:00 08/25/19 14:37 Decadron Injection - IVPUSH 10 mg Q6H-IV SEBASTIÁN Administration Docusate Sodium 100 mg 08/24/19 10:00 08/25/19 09:31 Colace - PO 100 mg BID SEBASTIÁN Administration Gabapentin 100 mg 08/25/19 12:15 08/25/19 12:48 Neurontin - PO 100 mg BID SEBASTIÁN Administration HCTZ/Losartan Potassium 2 tab 08/24/19 10:00 08/25/19 09:31 Hyzaar - PO 2 tab DAILY SEBASTIÁN Administration Insulin Aspart 1 vial 08/24/19 16:30 08/25/19 11:40 Novolog Vial Sliding Scale - SQ 8 units TIDAC SEBASTIÁN Administration Protocol Insulin Detemir 5 units 08/26/19 07:00 Levemir Vial SQ AM SEBASTIÁN Lidocaine 1 patch 08/25/19 11:15 08/25/19 11:41 Lidoderm Patch - TP 1 patch DAILY SEBASTIÁN Administration Metoprolol Succinate 100 mg 08/24/19 10:00 08/25/19 09:31 Toprol Xl - PO 100 mg DAILY SEBASTIÁN Administration Miscellaneous 1 each 08/25/19 22:00 Lidoderm Patch Removal MC DAILY@2200 SEBASTIÁN Morphine Sulfate 2 mg 08/25/19 11:02 Morphine Sulfate IVPUSH Q4H PRN PAIN LEVEL 1-3 Oxycodone HCl 5 mg 08/24/19 08:15 08/25/19 06:53 Roxicodone - PO 5 mg Q4H PRN Administration PAIN LEVEL 4-6 Oxycodone HCl 10 mg 08/25/19 11:02 08/25/19 11:33 Roxicodone - PO 10 mg Q4H PRN Administration PAIN LEVEL 7-10 Pantoprazole Sodium 20 mg 08/25/19 12:15 08/25/19 12:48 Protonix - PO 20 mg DAILY SEBASTIÁN Administration ASSESSMENT/PLAN: Visit type - Emergency Visit Emergency Visit: No - New Patient This patient is new to me today: No - Critical Care Critical Care patient: No ATTENDING PHYSICIAN STATEMENT I saw and evaluated the patient. I reviewed the resident's note and discussed the case with the resident. I agree with the resident's findings and plan as documented. SUBJECTIVE: OBJECTIVE: ASSESSMENT AND PLAN:
--- NOTE | 2019-08-25 17:53 | PN ---
Physical Exam: SUBJECTIVE: Patient seen and examined DODIE Complaining LBP pain radiating to both legs, worsening to hip flexion. Denies urinary/fecal incontinence. Endorses urinary frequency. Thinks her legs have numbness OBJECTIVE: Vital Signs Period Temp Pulse Resp BP Sys/Mendes Pulse Ox Last 24 Hr 98 F-98.3 F 70-92 18-20 140-156/61-80 94 GENERAL: The patient is awake, alert, and fully oriented, in no acute distress. HEAD: NC/AT, no temporal wasting EYES: PERRL, extraocular movements intact, sclera anicteric, pale conjunctiva. No ptosis. ENT: Ears normal, nares patent, oropharynx clear without exudates, moist mucous membranes. NECK: Trachea midline, full range of motion, supple. LUNGS: Breath sounds equal, clear to auscultation bilaterally, no wheezes, no crackles, no accessory muscle use. Breathing room air HEART: Regular rate and rhythm, S1, S2 without murmur, rub or gallop. ABDOMEN: Soft, nontender, nondistended, normoactive bowel sounds, no guarding, no rebound. EXTREMITIES: 2+ pulses, warm, well-perfused, no edema. NEUROLOGICAL: Cranial nerves II through XII grossly intact. Normal speech. Painful AROM of LLE knee flexion, hip flexion. Sensation grossly intact in BLE. TTP of lower midline L-spine. Grossly swollen Left ankle w/o point tenderness RECTAL: decreased rectal tone PSYCH: Normal mood, normal affect. SKIN: Warm, dry, normal turgor, no rashes or lesions noted Laboratory Results - last 24 hr 08/24/19 08/24/19 08/25/19 17:54 21:56 06:32 WBC RBC Hgb Hct MCV MCH MCHC RDW Plt Count MPV Absolute Neuts (auto) Neutrophils % Lymphocytes % Monocytes % Eosinophils % Basophils % Nucleated RBC % Sodium Potassium Chloride Carbon Dioxide Anion Gap BUN Creatinine Est GFR (CKD-EPI)AfAm Est GFR (CKD-EPI)NonAf POC Glucometer 233 280 206 Random Glucose Calcium Blood Type Antibody Screen 08/25/19 08/25/19 08/25/19 07:10 07:10 07:10 WBC 12.3 H RBC 4.21 Hgb 12.0 Hct 35.3 MCV 84.0 MCH 28.6 MCHC 34.1 RDW 13.8 Plt Count 420 MPV 7.3 L Absolute Neuts (auto) 11.0 H Neutrophils % 89.7 H Lymphocytes % 8.0 D Monocytes % 2.3 L Eosinophils % 0.0 D Basophils % 0.0 Nucleated RBC % 0 Sodium 137 Potassium 3.7 Chloride 101 Carbon Dioxide 30 Anion Gap 6 L BUN 35.3 H Creatinine 0.8 Est GFR (CKD-EPI)AfAm 79.57 Est GFR (CKD-EPI)NonAf 68.66 POC Glucometer Random Glucose 200 H Calcium 8.9 Blood Type A POSITIVE Antibody Screen Negative 08/25/19 11:38 WBC RBC Hgb Hct MCV MCH MCHC RDW Plt Count MPV Absolute Neuts (auto) Neutrophils % Lymphocytes % Monocytes % Eosinophils % Basophils % Nucleated RBC % Sodium Potassium Chloride Carbon Dioxide Anion Gap BUN Creatinine Est GFR (CKD-EPI)AfAm Est GFR (CKD-EPI)NonAf POC Glucometer 312 Random Glucose Calcium Blood Type Antibody Screen Active Medications Generic Name Dose Route Start Last Admin Trade Name Freq PRN Reason Stop Dose Admin Dexamethasone Sodium Phosphate 10 mg 08/24/19 03:00 08/25/19 14:37 Decadron Injection - IVPUSH 10 mg Q6H-IV SEBASTIÁN Administration Docusate Sodium 100 mg 08/24/19 10:00 08/25/19 09:31 Colace - PO 100 mg BID SEBASTIÁN Administration Gabapentin 100 mg 08/25/19 12:15 08/25/19 12:48 Neurontin - PO 100 mg BID SEBASTIÁN Administration HCTZ/Losartan Potassium 2 tab 08/24/19 10:00 08/25/19 09:31 Hyzaar - PO 2 tab DAILY SEBASTIÁN Administration Insulin Aspart 1 vial 08/24/19 16:30 08/25/19 11:40 Novolog Vial Sliding Scale - SQ 8 units TIDAC SEBASTIÁN Administration Protocol Insulin Detemir 5 units 08/26/19 07:00 Levemir Vial SQ AM SEBASTIÁN Lidocaine 1 patch 08/25/19 11:15 08/25/19 11:41 Lidoderm Patch - TP 1 patch DAILY SEBASTIÁN Administration Metoprolol Succinate 100 mg 08/24/19 10:00 08/25/19 09:31 Toprol Xl - PO 100 mg DAILY SEBASTIÁN Administration Miscellaneous 1 each 08/25/19 22:00 Lidoderm Patch Removal MC DAILY@2200 SEBASTIÁN Morphine Sulfate 2 mg 08/25/19 11:02 Morphine Sulfate IVPUSH Q4H PRN PAIN LEVEL 1-3 Oxycodone HCl 5 mg 08/24/19 08:15 08/25/19 06:53 Roxicodone - PO 5 mg Q4H PRN Administration PAIN LEVEL 4-6 Oxycodone HCl 10 mg 08/25/19 11:02 08/25/19 11:33 Roxicodone - PO 10 mg Q4H PRN Administration PAIN LEVEL 7-10 Pantoprazole Sodium 20 mg 08/25/19 12:15 08/25/19 12:48 Protonix - PO 20 mg DAILY SEBASTIÁN Administration ASSESSMENT/PLAN: 84F w/ pmh of HTN, NIDDM, Left ankle fracture(2019), 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 CT imaging suggesting anterolithesis of L-spine. 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 Neurosurgery(Adwoa) recommended surgical intervention w/ biopsy and debulking. 2nd opinion by Neurosurgery(Alvaro) recommended CT-guided bx, MedOnc, RadOnc, look for occult malignancy w/ CT chest /abd/pelv + Nuclear Bone Scan. # Lumbar spine anterolisthesis > CT lumbar spine: anterolisthesis of L3, L4, disc bulging with possible left lateral herniated component narrowing the left foramen L2-3, and L3-L4. L4-5 disc bulging with a probable right-sided herniated component affecting the right anterior canal and right foramen. Possible L5 nerve root impingement. > MRI: malignant mass at S1, S2 w/ extension in the epidural layer, causing compression of b/l S1 nerve roots, 1cm Right iliac bone lesion - Neurosurgery consult (Dr. Orona): rec sx w/ biopsy/debulking - Neurosurgery 2nd consult(Dr John): CT-guided bx, MedOnc, RadOnc, look for occult malignancy w/ CT chest/abd/pelv + Nuclear Bone Scan - dexamethasone 10mg IVP q6h - Pain regimen: --morphine 2mg, oxycodone 5 / 10 --gabapentin 100 PO BID --lidoderm # Hypertension - Losartan 100mg PO daily - Hydrochlorothiazide 25mg PO daily -Metoprolol 100mg PO daily Diabetes mellitus -ISS ACHS -BGM ACHS FEN - diabetic diet - NPO at ID for possible CT-guided bx on 08/26/19 Prophylaxis - SCDs bilateral lower extremities - pantoprazole(for steroids) Disposition - med-surg Visit type - Emergency Visit Emergency Visit: No - New Patient This patient is new to me today: No - Critical Care Critical Care patient: No ATTENDING PHYSICIAN STATEMENT I saw and evaluated the patient. I reviewed the resident's note and discussed the case with the resident. I agree with the resident's findings and plan as documented. SUBJECTIVE: OBJECTIVE: ASSESSMENT AND PLAN:
--- NOTE | 2019-08-25 19:12 | CONSULT ---
Consult - text type - Consultation Consultation Note: 84y/o female with HTN, DM, and breast cancer s/p lumpectomy 5 years ago who presents with sudden onset back pain 7 days ago. Pt had a fall down the stairs in March and broke her left ankle. She was doing physical therapy exercises on her back and flexed her left leg at the hip then felt pain in her lower back. She is under the care of Dr. Ivan for her ankle and was given Tramadol , Skelaxin, and steroids with no improvement in symptoms. She reports tightness in b/l buttocks radiating into lateral legs below the knee. For the last 3 days she has had pain so severe that she is unable to walk. Pain is currently 8/10. She reports a remote hx of lumbar herniated disc but has not had problems in years. Pt reports she has been eating normally but may be drinking less than usual. Past History - Past Medical History Allergies/Adverse Reactions: Allergies Allergy/AdvReac Type Severity Reaction Status Date / Time No Known Allergies Allergy Verified 08/23/19 16:53 Home Medications: Ambulatory Orders Calcium Carbonate/Vitamin D3 [Calcium 600 + Vit D Tablet] 1 tab PO BID 08/23/19 Lactobacillus Acidophilus [Acidophilus] 1 each PO BID 08/23/19 Losartan/Hydrochlorothiazide [Losartan-Hctz 100-25 mg Tab] 1 tab PO DAILY Metaxalone [Skelaxin] 800 mg PO Q8H PRN 08/23/19 Metformin HCl [Glucophage] 1,000 mg PO BID 08/23/19 Metoprolol Succinate 100 mg PO DAILY 08/23/19 Naproxen 500 mg PO Q12H PRN 08/23/19 Prednisone 10 mg PO Q12H 08/23/19 Tramadol HCl 50 mg PO Q6H PRN 08/23/19 Amlodipine Besylate [Norvasc -] 5 mg PO DAILY 08/24/19 - Psycho Social/Smoking Cessation Hx Smoking History: Never smoked - Vital Signs Last Vital Signs Temp Pulse Resp BP Pulse Ox 97.7 F 70 20 183/80 H 94 L 08/25/19 17:24 08/25/19 17:24 08/25/19 17:24 08/25/19 17:24 08/24/19 21:00 Cor: RSR, No murmurs, No gallops Lungs: Clear to P&A Abd: Soft, Normal bowel sounds, No organomegaly Ext:No significant edema Skin: No rashes, Integument intact Abnormal Lab Results 08/25/19 08/25/19 07:10 07:10 WBC 12.3 H MPV 7.3 L Absolute Neuts (auto) 11.0 H Neutrophils % 89.7 H Monocytes % 2.3 L Anion Gap 6 L BUN 35.3 H Random Glucose 200 H Active Medications Generic Name Dose Route Start Last Admin Trade Name Freq PRN Reason Stop Dose Admin Dexamethasone Sodium Phosphate 10 mg 08/24/19 03:00 08/25/19 14:37 Decadron Injection - IVPUSH 10 mg Q6H-IV SEBASTIÁN Administration Docusate Sodium 100 mg 08/24/19 10:00 08/25/19 09:31 Colace - PO 100 mg BID SEBASTIÁN Administration Enoxaparin Sodium 40 mg 08/25/19 19:22 Lovenox - SQ 08/25/19 19:23 ONCE ONE Gabapentin 100 mg 08/25/19 12:15 08/25/19 12:48 Neurontin - PO 100 mg BID SEBASTIÁN Administration HCTZ/Losartan Potassium 2 tab 08/24/19 10:00 08/25/19 09:31 Hyzaar - PO 2 tab DAILY SEBASTIÁN Administration Insulin Aspart 1 vial 08/24/19 16:30 08/25/19 19:16 Novolog Vial Sliding Scale - SQ 2 units TIDAC SEBASTIÁN Administration Protocol Insulin Detemir 5 units 08/26/19 07:00 Levemir Vial SQ AM SEBASTIÁN Lidocaine 1 patch 08/25/19 11:15 08/25/19 11:41 Lidoderm Patch - TP 1 patch DAILY SEBASTIÁN Administration Metoprolol Succinate 100 mg 08/24/19 10:00 08/25/19 09:31 Toprol Xl - PO 100 mg DAILY SEBASTIÁN Administration Miscellaneous 1 each 08/25/19 22:00 Lidoderm Patch Removal MC DAILY@2200 SEBASTIÁN Morphine Sulfate 2 mg 08/25/19 11:02 Morphine Sulfate IVPUSH Q4H PRN PAIN LEVEL 1-3 Oxycodone HCl 5 mg 08/24/19 08:15 08/25/19 06:53 Roxicodone - PO 5 mg Q4H PRN Administration PAIN LEVEL 4-6 Oxycodone HCl 10 mg 08/25/19 11:02 08/25/19 11:33 Roxicodone - PO 10 mg Q4H PRN Administration PAIN LEVEL 7-10 Pantoprazole Sodium 20 mg 08/25/19 12:15 08/25/19 12:48 Protonix - PO 20 mg DAILY SEBASTIÁN Administration A/P 84y/o female with HTN, DM, and left breast s/p lumpectomy 5 years ago, RT and tamoxifen 2 and anastrozole x 3yrs. who presents with sudden onset back pain [address] L spine --osteolytic lesion s1s2, posterior cortical destruction, epidural component extending into spinal canal, neural foramina, thecal sac compression MRI --posterior paraspinal muscles with edema L3-S1. S1, S2 malignancy with encasement of bilateral S1, S2 nerve roots Rt. iliac bone lesion CT c/a/p pending Neurosurgery evals noted Will request rad-onc consult regarding thecal sac compression will need to discuss with IR regarding biopsy after checking CT c/a/p decrease decadron to 4mg Q 6h
[2019-08-25] MEDS ORDERED: ENOXAPARIN NA (PORCINE) 40 MG/0.4 ML DISP.SYRIN SQ ONE (19:22)
--- NOTE | 2019-08-25 20:20 | PN ---
Progress Note (short form) - Note Progress Note: Radiation Oncology Pt seen, chart/films reviewed, full consult to follow. 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 Seen by neurosurgery, surgical stabilization and decompression contemplated. For CT CAP and then likely CT-guided bx. Clinically suspicious for metastatic disease from ?DCIS improbable but not impossible vs other primary to be considered. Continue decadron and neurologic monitoring. Discussed with family likely need for palliative RT pending pathologic confirmation. Will request RT records from [facility].
[2019-08-25] MEDS: LIDOCAINE PATCH REMOVAL MC SCH (21:07)
[2019-08-25] MEDS ORDERED: INSULIN (NOVOLOG) ASPART 100 UNITS/ML 10ML VIAL ONE (22:29)
[2019-08-26] MEDS: DEXAMETHASONE SOD PHOSPHATE 10 MG/1 ML VIAL IVPUSH SCH ×4 (03:58→21:11)
[2019-08-26] MEDS ORDERED: INSULIN (LEVEMIR) 100 UNITS/ML UNITS SQ SCH (07:00)
[2019-08-26] MEDS: INSULIN (LEVEMIR) 100 UNITS/ML UNITS SQ SCH (07:10)
[2019-08-26] MEDS: INSULIN SLIDING SCALE (NOVOLOG) 1 VIAL SQ SCH ×4 (07:11→21:12)
[2019-08-26] MEDS: oxyCODONE HCL 5 MG TABLET PO PRN (07:12)
[2019-08-26 07:58] LABS: HEMATOCRIT 38.2 % (32.4-45.2); HEMOGLOBIN 12.7 GM/dL (10.7-15.3); MCH 28.4 pg (25.7-33.7); MCHC 33.4 g/dl (32.0-36.0); MEAN CELL VOLUME 85.2 fl (80-96); MEAN PLT VOLUME 7.1 fl (7.5-11.1); PLATELET COUNT 449 K/MM3 (134-434); RBC 4.48 M/mm3 (3.60-5.2); RDW 14.1 % (11.6-15.6); WHITE BLOOD COUNT 15.5 K/mm3 (4.0-10.0)
--- NOTE | 2019-08-26 08:26 | PN ---
Progress Note (short form) - Note Progress Note: NEUROSURGERY 3 months h/o LBP to L lat thigh/calf/foot now also R sided; B LE paresthesia Pain better on patches and steroid LE paresthesia also improved, on Neurontin Pt opted against open lumbar-sacral surgery and for CT guided bx PE: AF, VSS HEENT- NC/AT; Neck- supple; Cor- RRR; Lungs- CTA B; Abd- benign; Ext- no sign of DVT, L ankle callus/tenderness CN- intact; Motor- 5 B IP/Quad/TA/EHL/gastroc except L ankle pain limited 4+ and R IP4+ pain limited; Sensation- intact LT/vibration, no perineal numbness; DTR- 2+ except diminished B ankle reflexes CT and MRI LS spine - L3-4 spondylolisthesis, L4-5 and L5-S1 DDD; lytic/ expansile lesion S1 and S2 with posterior cortex bowing and anterior thecal sac impingement; B S1 root impingement; Axial images only down to about S1; R iliac bone involvement Breast CA met to sacrum vs new vertebral/sacral neoplasm, symptomatically improved Neurontin for paresthesia Recommend CT guided bx of S1 or R ilium lesion Med onc input noted Rad onc input noted
[2019-08-26 08:32] LABS: CALCIUM 8.9 mg/dL (8.5-10.1); CREATININE 0.8 mg/dL (0.55-1.3); MAGNESIUM 2.4 mg/dL (1.8-2.4); PHOSPHOROUS 4.7 mg/dL (2.5-4.9); POTASSIUM 3.7 mmol/L (3.5-5.1)
[2019-08-26] MEDS ORDERED: PT OWN MED DRAWER 7, Y5N ONE ×2 (09:06→12:37)
[2019-08-26] MEDS: DOCUSATE SODIUM 100 MG CAPSULE (FP) PO SCH ×2 (09:14→21:11)
[2019-08-26] MEDS: PANTOPRAZOLE 20 MG TABLET PO SCH (09:15)
[2019-08-26] MEDS: GABAPENTIN 100 MG CAPSULE PO SCH ×2 (09:15→21:11)
[2019-08-26] MEDS: LOSARTAN 50MG/HCTZ 12.5MG 1 TAB (FP) PO SCH (09:15)
[2019-08-26] MEDS: LIDOCAINE 5% TOPICAL PATCH TP SCH (09:16)
--- NOTE | 2019-08-26 09:34 | CONS ---
DATE OF CONSULTATION: 08/25/2019 REQUESTING PHYSICIAN: Roel Romero MD BILLING CHECKER: Chaim Dalton MD CHIEF COMPLAINT: Neurosurgery second opinion. HISTORY OF PRESENT ILLNESS: Patient is an 84-year-old right-handed female with a history of right breast CA status post lumpectomy followed by radiation and hormonal treatment for 5 years, diabetes, hypertension, and right left ankle fracture who had presented with lower back pain and bilateral lower extremity paresthesias and pain. She stated that she was diagnosed 5-1/2 years ago with ER/SC positive right breast cancer and underwent lumpectomy followed by radiation. She has been on Tamoxifen for 5 years, which was stopped about 6-7 months ago. She sustained a mechanical fall last March and broke her last night. She had some intermittent lower back pain 20 years ago but not at the time. About a month into the treatment of her left ankle fracture with physical therapy, she started experiencing some lower back discomfort. The pain essentially radiated down to her left buttock, lateral thigh, and lateral calf down to her left foot. It also had started radiating down her right lower extremity in a similar distribution. She had some occasional urinary frequency but no bowel or bladder incontinence at all. She has occasional constipation, which is chronic. She has been treated with Skelaxin, prednisone, and Naproxen without significant improvement in her symptoms. The pain has been so severe the last few days that she could not ambulate adequately. PAST MEDICAL HISTORY: Significant for breast cancer, diabetes, hypertension, recent left ankle fracture. CURRENT MEDICATIONS: Include Decadron, Hyzaar, Toprol XL, Colace, insulin sliding scale, and oxycodone. ALLERGIES: There are no known allergies. FAMILY HISTORY: Noncontributory. SOCIAL HISTORY: She does not smoke and only drinks alcohol socially. She lives at home. She is retired. REVIEW OF SYSTEMS: Otherwise negative for major constitutional, head, neck, cardiovascular, pulmonary, gastrointestinal, genitourinary, endocrinological, neurologic, or psychological problems except for the above. FAMILY HISTORY: Significant for hypertension and stroke in her mother and hypertension in her father. There is no maternal family history of breast cancer. PHYSICAL EXAMINATION: Vital Signs: Temperature is 98.2, blood pressure is 156/80 with pulse rate 76, O2 saturation 94% on room air. HEENT: Shows her to be normocephalic, atraumatic, anicteric. Neck: Supple with no lymphadenopathy, no carotid bruit. Coronary: Demonstrates a regular rhythm. Lungs: Clear bilaterally. Abdomen: Benign. Extremities: Shows left ankle callus from her recent fracture. There are no other signs of DVT. Neurologic: She is awake, alert, and oriented x4. Cranial nerve examination is intact 2-12. Motor examination shows 5/5 strength except right iliopsoas and left ankle, which are 4+ limited by pain and recent injury. Sensory examination is intact to light touch and vibratory sensation. Deep tendon reflexes are 2+ throughout except diminished bilateral ankle reflexes. Gait is not tested for safety reasons. Cerebellar examination demonstrates normal coordination without tremor. She has intact oxegat-ax-nokg examination. Musculoskeletal: Examination of lower back shows paraspinal muscle spasm in the lumbosacral junction bilaterally. LABORATORY EXAMINATION: Shows white blood cell count 12.3, hemoglobin 12, hematocrit 35.3, platelet count 420,000. INR is 1.08 and PTT is 28. Serum sodium is 137, potassium 3.7, BUN 35, creatinine 0.8, hemoglobin A1c 6.9. CT scan of the lumbar spine and MRI of the lumbar spine without contrast demonstrated degenerative spondylolisthesis at L3-4 with broad-based disk bulge and hpbq-wg-onhqbxby lateral recess stenosis. There is degenerative disk space narrowing at L4-5 and L5-S1 with resulting moderate central lateral recess stenosis. There is a lytic expansile lesion of the S1-S2 vertebral bodies with posterior cortical bowing and thecal sac impingement anteriorly. There is also a 1-cm right ilium bone involvement. The axial imaging MRI does not extend beyond S1, however. IMPRESSION: 1. 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 2. Lumbar degenerative disk disease and degenerative spondylolisthesis. 3. Hypertension. 4. Diabetes. RECOMMENDATIONS: Patient presented with a npihhb-sc-qypzty-history of increasing lower back pain and sciatic, which had been nonresponsive initially to anti-inflammatory medication and muscle relaxants as well as oral steroids. On my examination today, she has slight weakness of right iliopsoas and left ankle, which is likely related to her pain and ilium involvement as well as her recent left ankle fracture. She was reported to have slight decreased rectal tone, per the medical team, even though she has no bowel or bladder incontinence at all. The patient has been appropriately put on steroids, and her blood sugar should be monitored and treated accordingly. The goal of treatment is tissue confirmation and symptomatic control. There is no surgical cure that is possible for this lesion. The easiest and safest way of pain tissue diagnosis is CT-guided biopsy of the S1 involvement or possibility the right ilium involvement. The patient should be seen by medical oncology and radiation oncology to provide future treatment for probable metastatic breast disease. Old pathology report from [facility] would also be helpful. If surgery is contemplated, unfortunately, would face significant issues including, but not limited to, the patient's age and diabetes as well as the extensive destructive lesion of the S1 and S2 vertebral bodies and possible osteoporosis, which will make spinal instrumentation extremely problematic and possibly unstable. Instrumentation will likely need to be extended to the ilium where there is pathological involvement at least on the right side as seen on the MRI anyway. Further, this is an MRI without contrast and only extends down to the S1 level. The patient could benefit from metastatic evaluation involving a PET scan or at least CT scan of the chest/abdomen/pelvis and a nuclear bone scan. The above opinion was communicated with the patient as well as her friend at the bedside with the patient's consent. I also discussed the patient's care with the medical team attending. CHAIM DALTON M.D. [id number]
--- NOTE | 2019-08-26 15:30 | CONS ---
DATE OF CONSULTATION: 08/25/2019 REFERRING PHYSICIAN: Beatrice íDaz MD REASON FOR CONSULTATION: Metastatic disease in the sacrum. HISTORY OF PRESENT ILLNESS: Patient is an 84-year-old woman with a history of right breast DCIS status post breast conservation therapy and 5 years of Tamoxifen. She received adjuvant radiation therapy approximately 6 years ago at [address] [place] [address] Oncology. According to her family, she has had normal mammograms annually since her breast cancer treatment. Recently, she suffered a fracture of her foot and while undergoing physical therapy developed acute low back pain involving the buttocks and radiating to her lower extremities. Despite prednisone and analgesics, her pain worsened limiting her ambulation, and she was brought in for further evaluation. CT of the lumbar spine showed osteolytic changes in the upper sacrum, S1, S2, with posterior cortical destruction, epidural component extending into the spinal canal compressing the thecal sac as well as discogenic disease. MRI of the lumbar spine showed S1 and S2 malignancy with epidural extension compressing bilateral S1 nerve roots, infiltrating bilateral S1-S2 and S3-S3 neural foramen with encasement of bilateral S1 nerve roots and partially surrounded bilateral S2 nerve roots as well as a 1-cm right iliac bone lesion. She is being managed with Decadron and analgesics that have improved her pain control. She has mild urinary urgency but no incontinence with no changes in bowel habits. She denies paresthesias. She has been evaluated by the neurosurgeons, and surgical stabilization with decompression was contemplated. She is scheduled for a CT of the chest, abdomen, pelvis at this time. She has been premedicated and denies any pain whatsoever. PAST MEDICAL HISTORY: Right breast radiation therapy in 2013, diabetes mellitus , hypertension, ulcerative colitis, left ankle fracture, cholecystectomy, herniated lumbar disk. ALLERGIES: No known drug allergies. CURRENT MEDICATIONS: Lidoderm patch, Decadron IV, Hyzaar, Neurontin, Toprol XL, Colace, insulin, morphine p.r.n., oxycodone p.r.n., Protonix. FAMILY HISTORY: Nephew had colon cancer. SOCIAL HISTORY: She is . She has a son and a daughter. She is retired from office work. She does not consume alcohol. She quit smoking in 1961. She is G2, P2. Parity at age 25, menarche at age 10-11, menopause at age 47. REVIEW OF SYSTEMS: As noted. PHYSICAL EXAMINATION: General: Well-appearing, elderly female lying in the stretcher. HEENT: Normocephalic. Moist mucous membranes. Anicteric sclerae. Clear oral cavity. Neck: No mass. Chest: No tenderness. Abdomen: Soft, nondistended. Extremities: Tenderness at ankle. No mass or edema. Neurologic: No focal sensorimotor deficits, per Neurosurgery. RADIOLOGIC DATA: CT and MRI of the lumbar spine, see HPI. LABORATORY DATA: WBC 12.3, hemoglobin 12.0, platelets 420,000. Electrolytes within normal limits. BUN 35.3, creatinine 0.8, calcium 8.9. Liver function tests within normal limits. Albumin 3.2. 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 While this may be recurrence of her prior breast cancer, it would be unlikely from ductal carcinoma in situ, though not impossible. Another primary is suspected. She has obtained neurosurgical opinions regarding potential options to stabilize the sacrum versus conservative measures. Medical oncology on board. PLAN: We discussed palliative radiation therapy to the sacrum for pain control and to prevent/delay further bony destruction and destabilization. Agree with proceeding with extent of disease workup followed by CT-guided biopsy of the most accessible lesion. Pending pathologic confirmation of malignancy, she will be a candidate for radiation therapy. She will continue Decadron and pain management. Will follow with you. Thank you for asking me to see her. NGUYEN JENSEN M.D. [id number] MTDD
--- NOTE | 2019-08-26 18:59 | PN ---
Physical Exam: SUBJECTIVE: Patient seen and examined DODIE Received Lovenox lastnight. CT-guided bx delayed. OBJECTIVE: Vital Signs Period Temp Pulse Resp BP Sys/Mendes Pulse Ox Last 24 Hr 97.3 F-98.4 F 56-77 20-20 134-157/58-85 95 GENERAL: The patient is awake, alert, and fully oriented, in no acute distress. HEAD: NC/AT, no temporal wasting EYES: PERRL, extraocular movements intact, sclera anicteric, pale conjunctiva. No ptosis. ENT: Ears normal, nares patent, oropharynx clear without exudates, moist mucous membranes. NECK: Trachea midline, full range of motion, supple. LUNGS: Breath sounds equal, clear to auscultation bilaterally, no wheezes, no crackles, no accessory muscle use. Breathing room air HEART: Regular rate and rhythm, S1, S2 without murmur, rub or gallop. ABDOMEN: Soft, nontender, nondistended, normoactive bowel sounds, no guarding, no rebound. EXTREMITIES: 2+ pulses, warm, well-perfused, no edema. NEUROLOGICAL: Cranial nerves II through XII grossly intact. Normal speech. Painful AROM of LLE knee flexion, hip flexion. Sensation grossly intact in BLE. TTP of lower midline L-spine. Grossly swollen Left ankle w/o point tenderness PSYCH: Normal mood, normal affect. SKIN: Warm, dry, normal turgor, no rashes or lesions noted Laboratory Results - last 24 hr 08/25/19 08/25/19 08/26/19 17:00 21:03 07:08 WBC RBC Hgb Hct MCV MCH MCHC RDW Plt Count MPV Sodium Potassium Chloride Carbon Dioxide Anion Gap BUN Creatinine Est GFR (CKD-EPI)AfAm Est GFR (CKD-EPI)NonAf POC Glucometer 157 285 165 Random Glucose Calcium Phosphorus Magnesium 08/26/19 08/26/19 08/26/19 07:30 07:30 11:32 WBC 15.5 H RBC 4.48 Hgb 12.7 Hct 38.2 MCV 85.2 MCH 28.4 MCHC 33.4 RDW 14.1 Plt Count 449 H MPV 7.1 L Sodium 139 Potassium 3.7 Chloride 102 Carbon Dioxide 31 Anion Gap 6 L BUN 36.0 H Creatinine 0.8 Est GFR (CKD-EPI)AfAm 79.57 Est GFR (CKD-EPI)NonAf 68.66 POC Glucometer 160 Random Glucose 164 H Calcium 8.9 Phosphorus 4.7 Magnesium 2.4 08/26/19 16:40 WBC RBC Hgb Hct MCV MCH MCHC RDW Plt Count MPV Sodium Potassium Chloride Carbon Dioxide Anion Gap BUN Creatinine Est GFR (CKD-EPI)AfAm Est GFR (CKD-EPI)NonAf POC Glucometer 247 Random Glucose Calcium Phosphorus Magnesium Active Medications Generic Name Dose Route Start Last Admin Trade Name Freq PRN Reason Stop Dose Admin Dexamethasone Sodium Phosphate 4 mg 08/26/19 03:00 08/26/19 14:54 Decadron Injection - IVPUSH 4 mg Q6H-IV SEBASTIÁN Administration Docusate Sodium 100 mg 08/24/19 10:00 08/26/19 09:14 Colace - PO 100 mg BID SEBASTIÁN Administration Gabapentin 100 mg 08/25/19 12:15 08/26/19 09:15 Neurontin - PO 100 mg BID SEBASTIÁN Administration HCTZ/Losartan Potassium 2 tab 08/24/19 10:00 08/26/19 09:15 Hyzaar - PO 2 tab DAILY SEBASTIÁN Administration Insulin Aspart 1 vial 08/25/19 22:00 08/26/19 17:57 Novolog Vial Sliding Scale - SQ 4 units ACHS SEBASTIÁN Administration Protocol Insulin Detemir 5 units 08/26/19 07:00 08/26/19 07:10 Levemir Vial SQ 5 units AM SEBASTIÁN Administration Lidocaine 1 patch 08/25/19 11:15 08/26/19 09:16 Lidoderm Patch - TP 1 patch DAILY SEBASTIÁN Administration Metoprolol Succinate 100 mg 08/24/19 10:00 08/26/19 09:15 Toprol Xl - PO 100 mg DAILY SEBASTIÁN Administration Miscellaneous 1 each 08/25/19 22:00 08/25/19 21:07 Lidoderm Patch Removal MC Not Given DAILY@2200 SEBASTIÁN Morphine Sulfate 2 mg 08/25/19 11:02 Morphine Sulfate IVPUSH Q4H PRN PAIN LEVEL 1-3 Oxycodone HCl 5 mg 08/24/19 08:15 08/25/19 06:53 Roxicodone - PO 5 mg Q4H PRN Administration PAIN LEVEL 4-6 Oxycodone HCl 10 mg 08/25/19 11:02 08/26/19 07:12 Roxicodone - PO 10 mg Q4H PRN Administration PAIN LEVEL 7-10 Pantoprazole Sodium 20 mg 08/25/19 12:15 08/26/19 09:15 Protonix - PO 20 mg DAILY SEBASTIÁN Administration ASSESSMENT/PLAN: 84F w/ pmh of HTN, NIDDM, Left ankle fracture(2019), 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 CT imaging suggesting anterolithesis of L-spine. 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 Neurosurgery(Adwoa) recommended surgical intervention w/ biopsy and debulking. 2nd opinion by Neurosurgery(Alvaro) recommended CT-guided bx, MedOnc, RadOnc, look for occult malignancy w/ CT chest /abd/pelv + Nuclear Bone Scan. # Lumbar spine anterolisthesis # Sacral spinal mass > CT lumbar spine: anterolisthesis of L3, L4, disc bulging with possible left lateral herniated component narrowing the left foramen L2-3, and L3-L4. L4-5 disc bulging with a probable right-sided herniated component affecting the right anterior canal and right foramen. Possible L5 nerve root impingement. > MRI: malignant mass at S1, S2 w/ extension in the epidural layer, causing compression of b/l S1 nerve roots, 1cm Right iliac bone lesion - Neurosurgery consult (Dr. Orona): rec sx w/ biopsy/debulking - Neurosurgery 2nd consult(Dr John): CT-guided bx, MedOnc, RadOnc, look for occult malignancy w/ CT chest/abd/pelv + Nuclear Bone Scan - dexamethasone 10mg IVP q6h --> dexamethasone 4mg q6h - Pain regimen: --morphine 2mg, oxycodone 5 / 10 --gabapentin 100 PO BID --lidoderm # occult mass vs secondary malignancy > CT chest/A/P: multiple lung nodules(<1cm), thyroid gland w/ multiple nodules(R --2.7x1.8cm; L--1.8x1.5cm), hepatic lesion 8mm, L kidney subcortical cyst vs tumor(2.8 x2.6x2.5cm). Sacral lesion 3.9x3x7.2cm extending into epidural space # Hypertension - HCTZ/Losartan 2tab PO QD -Metoprolol 100mg PO daily Diabetes mellitus -ISS ACHS -BGM ACHS FEN - diabetic diet - NPO at RI for possible CT-guided bx on 08/27/19 Prophylaxis - SCDs bilateral lower extremities - pantoprazole(for steroids) Disposition - med-surg Visit type - Emergency Visit Emergency Visit: No - New Patient This patient is new to me today: No - Critical Care Critical Care patient: No ATTENDING PHYSICIAN STATEMENT I saw and evaluated the patient. I reviewed the resident's note and discussed the case with the resident. I agree with the resident's findings and plan as documented. SUBJECTIVE: OBJECTIVE: ASSESSMENT AND PLAN:
--- NOTE | 2019-08-26 19:35 | PN ---
Teaching Attending Note Name of Resident: Raimundo Ruiz ATTENDING PHYSICIAN STATEMENT I saw and evaluated the patient. I reviewed the resident's note and discussed the case with the resident. I agree with the resident's findings and plan as documented. SUBJECTIVE: no fever or chills. cont to have back pain with radiation to mainly L leg . No urinary incontinence or fecal incontinence . OBJECTIVE: NAD. awake CV: RRR, no MRG Lungs: CTAB Abd: soft, NT, ND, NL BS. Ext : No edema or erythema Neuro of LE: RLE: hip felxion 5/5. knee flexion and extension 5/5. ankle dorsiflexion/ plantar flexion 5/5 . LLE: hip felxion 5/5. knee flexion and extension 5/5. ankle dorsiflexion/ plantar flexion 5/5 . Sensation to light touch: Nl on both LEs Reflexes: Knee jerk 2+ b/l. 0 R ankle jerk and 0 L ankle jerk . neg Babinski's bilaterally Assessment/Plan: 84 y/o lady with h/o R breast cancer s/p lumpectomy and radiation , HTN, DM, and chronic back pain who presented with worsening lower back pain with radiation to LE and inability to walk 1- Sacral mass with pain and signs of Qauda equina: 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 - CT guided Bx was canceled today due receiving lovenox yesterday evening - cont decadron. - cont pain control with oxy, morphine and lidocaine patch - cont neurontin - plan on palliative radiation depends on bx results - CT Abd /pelvis /chest reviewed. lung nodules and renal complex cyst/? mass . patient was informed of results - ? bone scan per ONc - Records obtained. her original breast tumor was ER, DE positive . records were left in chart 2- Leukocytosis: due to steroids . Monitor 3- h/o DM : hold metformin and cont SSI - cont low dose levemir while on steroids - has been on steroids x 2 weeks as out pt. avoid abrupt cessation 4- h/o HTN: - cont home meds Losartan/HCTZ and metoprolol 5- DVT px: will cont SCds. hold chemical for bx. will place on lovenox after Bx
[2019-08-26] MEDS: LIDOCAINE PATCH REMOVAL MC SCH (21:12)
[2019-08-27] MEDS: DEXAMETHASONE SOD PHOSPHATE 10 MG/1 ML VIAL IVPUSH SCH ×4 (02:07→21:06)
[2019-08-27] MEDS: INSULIN SLIDING SCALE (NOVOLOG) 1 VIAL SQ SCH ×4 (06:01→21:07)
[2019-08-27] MEDS: INSULIN (LEVEMIR) 100 UNITS/ML UNITS SQ SCH (06:01)
--- NOTE | 2019-08-27 08:14 | PN ---
Progress Note (short form) - Note Progress Note: NEUROSURGERY 3 months h/o LBP to L lat thigh/calf/foot now also R sided; B LE paresthesia Pain better on patches and steroid LE paresthesia improved, on Neurontin CT guided bx held till today Only one BM since admission PE: Tmax 98.4, AF, VSS HEENT- NC/AT; Neck- supple; Cor- RRR; Lungs- CTA B; Abd- benign; Ext- no sign of DVT, L ankle callus/tenderness CN- intact; Motor- 5 B IP/Quad/TA/EHL/gastroc except L ankle pain limited 4+ and R IP4+ pain limited; Sensation- intact LT/vibration, no perineal numbness; DTR- 2+ except diminished B ankle reflexes CT and MRI LS spine - L3-4 spondylolisthesis, L4-5 and L5-S1 DDD; lytic/ expansile lesion S1 and S2 with posterior cortex bowing and anterior thecal sac impingement; B S1 root impingement; Axial images only down to about S1; R iliac bone involvement Breast CA met to sacrum vs new vertebral/sacral neoplasm, symptomatically improved Neurontin for paresthesia Await CT guided bx of S1 or R ilium lesion Bowel regimen Med onc f/u Rad onc f/u
[2019-08-27 08:32] LABS: HEMATOCRIT 36.7 % (32.4-45.2); HEMOGLOBIN 12.5 GM/dL (10.7-15.3); MCH 28.5 pg (25.7-33.7); MCHC 34.1 g/dl (32.0-36.0); MEAN CELL VOLUME 83.8 fl (80-96); PLATELET COUNT 440 K/MM3 (134-434); RBC 4.38 M/mm3 (3.60-5.2); RDW 14.4 % (11.6-15.6); WHITE BLOOD COUNT 14.2 K/mm3 (4.0-10.0)
[2019-08-27 09:00] LABS: BLOOD UREA NITROGEN 38.6 mg/dL (7-18); CALCIUM 8.8 mg/dL (8.5-10.1); CREATININE 0.8 mg/dL (0.55-1.3); MAGNESIUM 2.5 mg/dL (1.8-2.4); PHOSPHOROUS 4.7 mg/dL (2.5-4.9); POTASSIUM 3.6 mmol/L (3.5-5.1)
[2019-08-27] MEDS: DOCUSATE SODIUM 100 MG CAPSULE (FP) PO SCH ×3 (09:17→21:09)
[2019-08-27] MEDS: GABAPENTIN 100 MG CAPSULE PO SCH ×2 (09:17→21:06)
[2019-08-27] MEDS: PANTOPRAZOLE 20 MG TABLET PO SCH (09:18)
[2019-08-27] MEDS: LIDOCAINE 5% TOPICAL PATCH TP SCH (09:19)
[2019-08-27] MEDS ORDERED: PT OWN MED DRAWER 7, Y5N ONE ×2 (09:27→18:07)
--- NOTE | 2019-08-27 09:34 | PN ---
Teaching Attending Note Name of Resident: Raimundo Ruiz ATTENDING PHYSICIAN STATEMENT I saw and evaluated the patient. I reviewed the resident's note and discussed the case with the resident. I agree with the resident's findings and plan as documented. SUBJECTIVE: Patient is going for sacral bx by IR, worried about the bx. otherwise has no pain. OBJECTIVE: Vital Signs Temperature 97.7 F 08/27/19 06:43 Pulse Rate 73 08/27/19 06:43 Respiratory Rate 20 08/27/19 06:43 Blood Pressure 174/77 H 08/27/19 06:43 O2 Sat by Pulse Oximetry (%) 97 08/26/19 21:00 GENERAL: The patient is awake, alert, and fully oriented, in no acute distress. HEAD: Normal with no signs of trauma. EYES: PERRL, extraocular movements intact, sclera anicteric, conjunctiva clear. ENT: Ears normal, oropharynx clear without exudates, moist mucous membranes. NECK: Trachea midline, full range of motion, supple. LUNGS: Breath sounds equal, clear to auscultation bilaterally, no wheezes, no crackles, no accessory muscle use. HEART: Regular rate and rhythm, S1, S2 without murmur, rub or gallop. ABDOMEN: Soft, nontender, nondistended, normoactive bowel sounds, no guarding, no rebound, no hepatosplenomegaly, no masses. EXTREMITIES: 2+ pulses, warm, well-perfused, no edema. good ROM L>R. NEUROLOGICAL: Cranial nerves II through XII grossly intact. Normal speech, gait not observed. PSYCH: Normal mood, normal affect. SKIN: Warm, dry, normal turgor, no rashes or lesions noted CBCD WBC 14.2 K/mm3 (4.0-10.0) H 08/27/19 08:05 RBC 4.38 M/mm3 (3.60-5.2) 08/27/19 08:05 Hgb 12.5 GM/dL (10.7-15.3) 08/27/19 08:05 Hct 36.7 % (32.4-45.2) 08/27/19 08:05 MCV 83.8 fl (80-96) 08/27/19 08:05 MCHC 34.1 g/dl (32.0-36.0) 08/27/19 08:05 RDW 14.4 % (11.6-15.6) 08/27/19 08:05 Plt Count 440 K/MM3 (134-434) H 08/27/19 08:05 MPV 7.0 fl (7.5-11.1) L 08/27/19 08:05 CMP Sodium 142 mmol/L (136-145) 08/27/19 08:05 Potassium 3.6 mmol/L (3.5-5.1) 08/27/19 08:05 Chloride 104 mmol/L (98-107) 08/27/19 08:05 Carbon Dioxide 30 mmol/L (21-32) 08/27/19 08:05 Anion Gap 8 MMOL/L (8-16) 08/27/19 08:05 BUN 38.6 mg/dL (7-18) H 08/27/19 08:05 Creatinine 0.8 mg/dL (0.55-1.3) 08/27/19 08:05 Random Glucose 150 mg/dL (74-106) H 08/27/19 08:05 Calcium 8.8 mg/dL (8.5-10.1) 08/27/19 08:05 Total Bilirubin 0.3 mg/dL (0.2-1) 08/24/19 06:42 AST 16 U/L (15-37) 08/24/19 06:42 ALT 28 U/L (13-61) 08/24/19 06:42 Alkaline Phosphatase 59 U/L (45-117) 08/24/19 06:42 Total Protein 6.7 g/dl (6.4-8.2) 08/24/19 06:42 Albumin 3.2 g/dl (3.4-5.0) L 08/24/19 06:42 Current Medications Generic Name Dose Route Start Last Admin Trade Name Freq PRN Reason Stop Dose Admin Dexamethasone Sodium Phosphate 4 mg 08/26/19 03:00 08/27/19 09:28 Decadron Injection - IVPUSH 4 mg Q6H-IV SEBASTIÁN Administration Docusate Sodium 100 mg 08/24/19 10:00 08/27/19 09:17 Colace - PO 100 mg BID SEBASTIÁN Administration Gabapentin 100 mg 08/25/19 12:15 08/27/19 09:17 Neurontin - PO 100 mg BID SEBASTIÁN Administration HCTZ/Losartan Potassium 2 tab 08/24/19 10:00 08/26/19 09:15 Hyzaar - PO 2 tab DAILY SEBASTIÁN Administration Insulin Aspart 1 vial 08/25/19 22:00 08/27/19 06:01 Novolog Vial Sliding Scale - SQ 2 units ACHS SEBASTIÁN Administration Protocol Insulin Detemir 5 units 08/26/19 07:00 08/27/19 06:01 Levemir Vial SQ 5 units AM SEBASTIÁN Administration Lidocaine 1 patch 08/25/19 11:15 08/27/19 09:19 Lidoderm Patch - TP 1 patch DAILY SEBASTIÁN Administration Metoprolol Succinate 100 mg 08/24/19 10:00 08/27/19 09:17 Toprol Xl - PO 100 mg DAILY SEBASTIÁN Administration Miscellaneous 1 each 08/25/19 22:00 08/26/19 21:12 Lidoderm Patch Removal MC Not Given DAILY@2200 [facility] Morphine Sulfate 2 mg 08/25/19 11:02 Morphine Sulfate IVPUSH Q4H PRN PAIN LEVEL 1-3 Oxycodone HCl 5 mg 08/24/19 08:15 08/25/19 06:53 Roxicodone - PO 5 mg Q4H PRN Administration PAIN LEVEL 4-6 Oxycodone HCl 10 mg 08/25/19 11:02 08/26/19 07:12 Roxicodone - PO 10 mg Q4H PRN Administration PAIN LEVEL 7-10 Pantoprazole Sodium 20 mg 08/25/19 12:15 08/27/19 09:18 Protonix - PO 20 mg DAILY SEBASTIÁN Administration Home Medications Medication Instructions Recorded Calcium Carbonate/Vitamin D3 1 tab PO BID 08/23/19 [Calcium 600 + Vit D Tablet] Lactobacillus Acidophilus 1 each PO BID 08/23/19 [Acidophilus] Losartan/Hydrochlorothiazide 1 tab PO DAILY 08/23/19 [Losartan-Hctz 100-25 mg Tab] Metaxalone [Skelaxin] 800 mg PO Q8H PRN 08/23/19 Metformin HCl [Glucophage] 1,000 mg PO BID 08/23/19 Metoprolol Succinate 100 mg PO DAILY 08/23/19 Naproxen 500 mg PO Q12H PRN 08/23/19 Prednisone 10 mg PO Q12H 08/23/19 Tramadol HCl 50 mg PO Q6H PRN 08/23/19 Amlodipine Besylate [Norvasc -] 5 mg PO DAILY 08/24/19 ASSESSMENT AND PLAN: Patient is an 84yof with Pmhx of R breast cancer s/p lumpectomy and radiation , HTN, DM, and chronic back pain who presented with worsening lower back pain with radiation to LE and inability to walk # Sacral mass with pain and signs of Qauda equina: 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 patient is going for CT guided Bx today by IR. - cont decadron, cont pain control with oxy, morphine and lidocaine patch , cont neurontin - plan on palliative radiation depends on bx results # CT Abd /pelvis /chest reviewed. lung nodules and renal complex cyst/? mass . patient was informed of results ,; bone scan per ONc - Records obtained. Her original breast tumor was ER, CA positive . records were left in chart # Leukocytosis: due to steroids .will continue to monitor # T2DM : hold metformin and cont SSI , cont low dose levemir while on steroids - has been on steroids x 2 weeks as out pt. avoid abrupt cessation. # HTN elevated : cont home meds Losartan/HCTZ and metoprolol, will monitor possible due to being anxious due to having Bx DVT px: will cont SCds. hold chemical for bx. will place on lovenox after Bx
[2019-08-27] MEDS: LOSARTAN 50MG/HCTZ 12.5MG 1 TAB (FP) PO SCH (09:47)
--- NOTE | 2019-08-27 16:11 | PN ---
Physical Exam: SUBJECTIVE: Patient seen and examined NAEON NPO overnight for CT bx. Endorses anxiety. Thinks LBP and LLE weakness is same or slightly improved OBJECTIVE: Vital Signs Period Temp Pulse Resp BP Sys/Mendes Pulse Ox Last 24 Hr 97.7 F-98.4 F 56-78 14-20 135-187/68-85 97-100 GENERAL: The patient is awake, alert, and fully oriented, in no acute distress. HEAD: NC/AT, no temporal wasting EYES: PERRL, extraocular movements intact, sclera anicteric, pale conjunctiva. No ptosis. ENT: Ears normal, nares patent, oropharynx clear without exudates, moist mucous membranes. NECK: Trachea midline, full range of motion, supple. LUNGS: Breath sounds equal, clear to auscultation bilaterally, no wheezes, no crackles, no accessory muscle use. Breathing room air HEART: Regular rate and rhythm, S1, S2 without murmur, rub or gallop. ABDOMEN: Soft, nontender, nondistended, normoactive bowel sounds, no guarding, no rebound. EXTREMITIES: 2+ pulses, warm, well-perfused, no edema. NEUROLOGICAL: Cranial nerves II through XII grossly intact. Normal speech. Painful AROM of LLE knee flexion, hip flexion. Sensation grossly intact in BLE. TTP of lower midline L-spine. Grossly swollen Left ankle w/o point tenderness PSYCH: Normal mood, normal affect. SKIN: Warm, dry, normal turgor, no rashes or lesions noted Laboratory Results - last 24 hr 08/26/19 08/26/19 08/27/19 16:40 20:46 05:34 WBC RBC Hgb Hct MCV MCH MCHC RDW Plt Count MPV Sodium Potassium Chloride Carbon Dioxide Anion Gap BUN Creatinine Est GFR (CKD-EPI)AfAm Est GFR (CKD-EPI)NonAf POC Glucometer 247 239 188 Random Glucose Calcium Phosphorus Magnesium 08/27/19 08/27/19 08/27/19 08:05 08:05 12:41 WBC 14.2 H RBC 4.38 Hgb 12.5 Hct 36.7 MCV 83.8 MCH 28.5 MCHC 34.1 RDW 14.4 Plt Count 440 H MPV 7.0 L Sodium 142 Potassium 3.6 Chloride 104 Carbon Dioxide 30 Anion Gap 8 BUN 38.6 H Creatinine 0.8 Est GFR (CKD-EPI)AfAm 79.57 Est GFR (CKD-EPI)NonAf 68.66 POC Glucometer 138 Random Glucose 150 H Calcium 8.8 Phosphorus 4.7 Magnesium 2.5 H Active Medications Generic Name Dose Route Start Last Admin Trade Name Freq PRN Reason Stop Dose Admin Dexamethasone Sodium Phosphate 4 mg 08/26/19 03:00 08/27/19 09:28 Decadron Injection - IVPUSH 4 mg Q6H-IV SEBASTIÁN Administration Docusate Sodium 100 mg 08/24/19 10:00 08/27/19 09:17 Colace - PO 100 mg BID SEBASTI[facility]N Administration Gabapentin 100 mg 08/25/19 12:15 08/27/19 09:17 Neurontin - PO 100 mg BID SEBASTIÁN Administration HCTZ/Losartan Potassium 2 tab 08/24/19 10:00 08/27/19 09:47 Hyzaar - PO 2 tab DAILY SEBASTIÁN Administration Insulin Aspart 1 vial 08/25/19 22:00 08/27/19 12:55 Novolog Vial Sliding Scale - SQ Not Given ACHS [facility] Protocol Insulin Detemir 5 units 08/26/19 07:00 08/27/19 06:01 Levemir Vial SQ 5 units AM SEBASTIÁN Administration Lidocaine 1 patch 08/25/19 11:15 08/27/19 09:19 Lidoderm Patch - TP 1 patch DAILY SEBASTIÁN Administration Metoprolol Succinate 100 mg 08/24/19 10:00 08/27/19 09:17 Toprol Xl - PO 100 mg DAILY SEBASTIÁN Administration Miscellaneous 1 each 08/25/19 22:00 08/26/19 21:12 Lidoderm Patch Removal MC Not Given DAILY@2200 [facility] Morphine Sulfate 2 mg 08/25/19 11:02 Morphine Sulfate IVPUSH Q4H PRN PAIN LEVEL 1-3 Oxycodone HCl 5 mg 08/24/19 08:15 08/25/19 06:53 Roxicodone - PO 5 mg Q4H PRN Administration PAIN LEVEL 4-6 Oxycodone HCl 10 mg 08/25/19 11:02 08/26/19 07:12 Roxicodone - PO 10 mg Q4H PRN Administration PAIN LEVEL 7-10 Pantoprazole Sodium 20 mg 08/25/19 12:15 08/27/19 09:18 Protonix - PO 20 mg DAILY SEBASTIÁN Administration ASSESSMENT/PLAN: 84F w/ pmh of HTN, NIDDM, Left ankle fracture(2019), 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 CT imaging suggesting anterolithesis of L-spine. 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 Neurosurgery(Adwoa) recommended surgical intervention w/ biopsy and debulking. 2nd opinion by Neurosurgery(Alvaro) recommended CT-guided bx, MedOnc, RadOnc, look for occult malignancy w/ CT chest /abd/pelv + Nuclear Bone Scan. S/P CT-guided bx(08/27/19). # Lumbar spine anterolisthesis # Sacral spinal mass > CT lumbar spine: anterolisthesis of L3, L4, disc bulging with possible left lateral herniated component narrowing the left foramen L2-3, and L3-L4. L4-5 disc bulging with a probable right-sided herniated component affecting the right anterior canal and right foramen. Possible L5 nerve root impingement. > MRI: malignant mass at S1, S2 w/ extension in the epidural layer, causing compression of b/l S1 nerve roots, 1cm Right iliac bone lesion - Neurosurgery consult (Dr. Orona): rec sx w/ biopsy/debulking - Neurosurgery 2nd consult(Dr John): CT-guided bx, MedOnc, RadOnc, look for occult malignancy w/ CT chest/abd/pelv + Nuclear Bone Scan - s/p CT-guided bx(08/27/19) - dexamethasone 10mg IVP q6h --> dexamethasone 4mg q6h - Pain regimen: --morphine 2mg, oxycodone 5 / 10 --gabapentin 100 PO BID --lidoderm # occult mass vs secondary malignancy > CT chest/A/P: multiple lung nodules(<1cm), thyroid gland w/ multiple nodules(R --2.7x1.8cm; L--1.8x1.5cm), hepatic lesion 8mm, L kidney subcortical cyst vs tumor(2.8 x2.6x2.5cm). Sacral lesion 3.9x3x7.2cm extending into epidural space # Hypertension - HCTZ/Losartan 2tab PO QD -Metoprolol 100mg PO daily Diabetes mellitus -ISS ACHS -BGM ACHS FEN - diabetic diet Prophylaxis - SCDs bilateral lower extremities - pantoprazole(for steroids) Disposition - med-surg Visit type - Emergency Visit Emergency Visit: No - New Patient This patient is new to me today: No - Critical Care Critical Care patient: No ATTENDING PHYSICIAN STATEMENT I saw and evaluated the patient. I reviewed the resident's note and discussed the case with the resident. I agree with the resident's findings and plan as documented. SUBJECTIVE: OBJECTIVE: ASSESSMENT AND PLAN:
[2019-08-27 20:04] LABS: HYALINE CASTS 1 /lpf (0-8); URINE APPEARANCE CLEAR; URINE BILIRUBIN NEGATIVE (NEGATIVE); URINE COLOR YELLOW; URINE GLUCOSE (UA) 1+ (NEGATIVE); URINE KETONE NEGATIVE (NEGATIVE); URINE LEUK ESTERASE 1+ (NEGATIVE); URINE NITRITE NEGATIVE (NEGATIVE); URINE PROTEIN NEGATIVE (NEGATIVE); URINE UROBILINOGEN 0.2 mg/dL (0.2-1.0); URINE WBC 11 /hpf (0-5)
[2019-08-27] MEDS: LIDOCAINE PATCH REMOVAL MC SCH (21:07)
[2019-08-27 21:48] LABS: URINE RBC 10.1 /hpf (0-4); YEAST NONE SEEN (NEGATIVE)
[2019-08-28] MEDS: DEXAMETHASONE SOD PHOSPHATE 10 MG/1 ML VIAL IVPUSH SCH ×4 (02:13→21:17)
[2019-08-28] MEDS: INSULIN (LEVEMIR) 100 UNITS/ML UNITS SQ SCH (06:17)
[2019-08-28] MEDS: INSULIN SLIDING SCALE (NOVOLOG) 1 VIAL SQ SCH ×4 (06:17→21:26)
[2019-08-28] MEDS: PANTOPRAZOLE 20 MG TABLET PO SCH (09:00)
[2019-08-28] MEDS ORDERED: PT OWN MED DRAWER 7, Y5N ONE (09:01)
[2019-08-28] MEDS: GABAPENTIN 100 MG CAPSULE PO SCH ×2 (09:02→21:17)
[2019-08-28] MEDS: LIDOCAINE 5% TOPICAL PATCH TP SCH (09:03)
--- NOTE | 2019-08-28 09:44 | PN ---
Progress Note (short form) - Note Progress Note: Radiation Oncology Pain controlled on current regimen. Status post sacral biopsy - path pending. CT CAP shows sub cm pulmonary nodules, thyroid nodules, kidney cysts (vs mass) as well as sacral mass. For bone scan. Cont decadron, analgesics, neurologic monitoring. Follow path. RT plans pending results.
[2019-08-28] MEDS: DOCUSATE SODIUM 100 MG CAPSULE (FP) PO SCH (11:00)
[2019-08-28] MEDS: LOSARTAN 50MG/HCTZ 12.5MG 1 TAB (FP) PO SCH (11:08)
[2019-08-28] MEDS: oxyCODONE HCL 5 MG TABLET PO PRN (13:53)
--- NOTE | 2019-08-28 14:02 | PN ---
Progress Note (short form) - Note Progress Note: NEUROSURGERY Pain overall better on patches and steroid LE paresthesia when up a lot CT guided bx result pending Son in law at bedside PE: AF, VSS HEENT- NC/AT; Neck- supple; Cor- RRR; Lungs- CTA B; Abd- benign; Ext- no sign of DVT, L ankle callus/tenderness CN- intact; Motor- 5 B IP/Quad/TA/EHL/gastroc except L ankle pain limited 4+ and R IP4+ pain limited; Sensation- intact LT/vibration, no perineal numbness; DTR- 2+ except diminished B ankle reflexes CT and MRI LS spine - L3-4 spondylolisthesis, L4-5 and L5-S1 DDD; lytic/ expansile lesion S1 and S2 with posterior cortex bowing and anterior thecal sac impingement; B S1 root impingement; Axial images only down to about S1; R iliac bone involvement Breast CA met to sacrum vs new vertebral/sacral neoplasm Neurontin for paresthesia Path to determine tx protocol Bowel regimen Mobilize
[2019-08-28] MEDS ORDERED: DOCUSATE SODIUM 100 MG CAPSULE (FP) PO PRN (17:29)
--- NOTE | 2019-08-28 17:31 | PN ---
Physical Exam: SUBJECTIVE: Patient seen and examined NAEON. Tolerated CT-guided bx States that AROM of Left knee and hip are better OBJECTIVE: Vital Signs Period Temp Pulse Resp BP Sys/Mendes Pulse Ox Last 24 Hr 97.7 F-98.3 F 65-77 18-20 124-179/62-85 98-98 GENERAL: The patient is awake, alert, and fully oriented, in no acute distress. HEAD: NC/AT, no temporal wasting EYES: PERRL, extraocular movements intact, sclera anicteric, pale conjunctiva. No ptosis. ENT: Ears normal, nares patent, oropharynx clear without exudates, moist mucous membranes. NECK: Trachea midline, full range of motion, supple. LUNGS: Breath sounds equal, clear to auscultation bilaterally, no wheezes, no crackles, no accessory muscle use. Breathing room air HEART: Regular rate and rhythm, S1, S2 without murmur, rub or gallop. ABDOMEN: Soft, nontender, nondistended, normoactive bowel sounds, no guarding, no rebound. EXTREMITIES: 2+ pulses, warm, well-perfused, no edema. NEUROLOGICAL: Cranial nerves II through XII grossly intact. Normal speech. Painful AROM of LLE knee flexion, hip flexion. Sensation grossly intact in BLE. TTP of lower midline L-spine. Grossly swollen Left ankle w/o point tenderness PSYCH: Normal mood, normal affect. SKIN: Warm, dry, normal turgor, no rashes or lesions noted Laboratory Results - last 24 hr 08/27/19 08/27/19 08/28/19 18:33 20:24 05:37 POC Glucometer 215 177 Urine Color Yellow Urine Appearance Clear Urine pH 6.0 Ur Specific [place] 1.024 Urine Protein Negative Urine Glucose (UA) 1+ H Urine Ketones Negative Urine Blood Negative Urine Nitrite Negative Urine Bilirubin Negative Urine Urobilinogen 0.2 Ur Leukocyte Esterase 1+ H Urine WBC (Auto) 11 Urine RBC (Auto) 10.1 Urine Casts (Auto) 1 U Epithel Cells (Auto) 7.0 Urine Bacteria (Auto) 49.0 Urine Yeast (Auto) None seen 08/28/19 08/28/19 11:11 16:20 POC Glucometer 182 306 Urine Color Urine Appearance Urine pH Ur Specific [place] Urine Protein Urine Glucose (UA) Urine Ketones Urine Blood Urine Nitrite Urine Bilirubin Urine Urobilinogen Ur Leukocyte Esterase Urine WBC (Auto) Urine RBC (Auto) Urine Casts (Auto) U Epithel Cells (Auto) Urine Bacteria (Auto) Urine Yeast (Auto) Active Medications Generic Name Dose Route Start Last Admin Trade Name Freq PRN Reason Stop Dose Admin Dexamethasone Sodium Phosphate 4 mg 08/26/19 03:00 08/28/19 16:11 Decadron Injection - IVPUSH 4 mg Q6H-IV SEBASTIÁN Administration Docusate Sodium 100 mg 08/24/19 10:00 08/28/19 11:00 Colace - PO Not Given BID [facility]N Gabapentin 100 mg 08/25/19 12:15 08/28/19 09:02 Neurontin - PO 100 mg BID [facility] Administration HCTZ/Losartan Potassium 2 tab 08/24/19 10:00 08/28/19 11:08 Hyzaar - PO 2 tab DAILY [facility]N Administration Insulin Aspart 1 vial 08/25/19 22:00 08/28/19 16:23 Novolog Vial Sliding Scale - SQ 8 units ACHS SEBAST[facility]N Administration Protocol Insulin Detemir 5 units 08/26/19 07:00 08/28/19 06:17 Levemir Vial SQ 5 units AM SEBASTIÁN Administration Lidocaine 1 patch 08/25/19 11:15 08/28/19 09:03 Lidoderm Patch - TP 1 patch DAILY [facility]N Administration Metoprolol Succinate 100 mg 08/24/19 10:00 08/28/19 09:01 Toprol Xl - PO 100 mg DAILY [facility]N Administration Miscellaneous 1 each 08/25/19 22:00 08/27/19 21:07 Lidoderm Patch Removal MC 1 each DAILY@2200 [facility] Administration Oxycodone HCl 5 mg 08/24/19 08:15 08/28/19 13:53 Roxicodone - PO 5 mg Q4H PRN Administration PAIN LEVEL 4-6 Pantoprazole Sodium 20 mg 08/25/19 12:15 08/28/19 09:00 Protonix - PO 20 mg DAILY [facility]STI[facility]N Administration ASSESSMENT/PLAN: 84F w/ pmh of HTN, NIDDM, Left ankle fracture(2019), 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 CT imaging suggesting anterolithesis of L-spine. 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 Neurosurgery(Adwoa) recommended surgical intervention w/ biopsy and debulking. 2nd opinion by Neurosurgery(Alvaro) recommended CT-guided bx, MedOnc, RadOnc, look for occult malignancy w/ CT chest /abd/pelv + Nuclear Bone Scan. S/P CT-guided bx(08/27/19). # Lumbar spine anterolisthesis # Sacral spinal mass > CT lumbar spine: anterolisthesis of L3, L4, disc bulging with possible left lateral herniated component narrowing the left foramen L2-3, and L3-L4. L4-5 disc bulging with a probable right-sided herniated component affecting the right anterior canal and right foramen. Possible L5 nerve root impingement. > MRI: malignant mass at S1, S2 w/ extension in the epidural layer, causing compression of b/l S1 nerve roots, 1cm Right iliac bone lesion - Neurosurgery consult (Dr. Orona): rec sx w/ biopsy/debulking - Neurosurgery 2nd consult(Dr John): CT-guided bx, AudiOnc, Nereidac, look for occult malignancy w/ CT chest/abd/pelv + Nuclear Bone Scan - s/p CT-guided bx(08/27/19) - dexamethasone 10mg IVP q6h --> dexamethasone 4mg q6h - Pain regimen: --morphine 2mg, oxycodone 5 / 10 --gabapentin 100 PO BID --lidoderm # constipation: - colace 100mg BID PRN # occult mass vs secondary malignancy > CT chest/A/P: multiple lung nodules(<1cm), thyroid gland w/ multiple nodules(R --2.7x1.8cm; L--1.8x1.5cm), hepatic lesion 8mm, L kidney subcortical cyst vs tumor(2.8 x2.6x2.5cm). Sacral lesion 3.9x3x7.2cm extending into epidural space # Hypertension - HCTZ/Losartan 2tab PO QD -Metoprolol 100mg PO daily Diabetes mellitus -ISS ACHS -BGM ACHS FEN - diabetic diet Prophylaxis - SCDs bilateral lower extremities - pantoprazole(for steroids) Disposition - med-surg Visit type - Emergency Visit Emergency Visit: No - New Patient This patient is new to me today: No - Critical Care Critical Care patient: No ATTENDING PHYSICIAN STATEMENT I saw and evaluated the patient. I reviewed the resident's note and discussed the case with the resident. I agree with the resident's findings and plan as documented. SUBJECTIVE: OBJECTIVE: ASSESSMENT AND PLAN:
--- NOTE | 2019-08-28 18:59 | PN ---
Teaching Attending Note Name of Resident: Raimundo Ruiz ATTENDING PHYSICIAN STATEMENT I saw and evaluated the patient. I reviewed the resident's note and discussed the case with the resident. I agree with the resident's findings and plan as documented. SUBJECTIVE: Patient is c/o low back pain, unable to ambulate. OBJECTIVE: Vital Signs Temperature 97.8 F 08/28/19 17:23 Pulse Rate 65 08/28/19 17:23 Respiratory Rate 20 08/28/19 17:23 Blood Pressure 138/64 08/28/19 17:23 O2 Sat by Pulse Oximetry (%) 98 08/28/19 09:00 GENERAL: The patient is awake, alert, and fully oriented, in no acute distress. HEAD: Normal with no signs of trauma. EYES: PERRL, extraocular movements intact, sclera anicteric, conjunctiva clear. ENT: Ears normal, oropharynx clear without exudates, moist mucous membranes. NECK: Trachea midline, full range of motion, supple. LUNGS: Breath sounds equal, clear to auscultation bilaterally, no wheezes, no crackles, no accessory muscle use. HEART: Regular rate and rhythm, S1, S2 positive, no rub or gallop. ABDOMEN: Soft, NT,ND, normoactive bowel sounds, no guarding, no rebound, no hepatosplenomegaly, no masses. EXTREMITIES: 2+ pulses, warm, well-perfused, no edema. good ROM L>R LEs NEUROLOGICAL: Cranial nerves II through XII grossly intact. Normal speech, gait not observed. PSYCH: Normal mood, normal affect. SKIN: Warm, dry, normal turgor, no rashes or lesions noted CBCD WBC 14.2 K/mm3 (4.0-10.0) H 08/27/19 08:05 RBC 4.38 M/mm3 (3.60-5.2) 08/27/19 08:05 Hgb 12.5 GM/dL (10.7-15.3) 08/27/19 08:05 Hct 36.7 % (32.4-45.2) 08/27/19 08:05 MCV 83.8 fl (80-96) 08/27/19 08:05 MCHC 34.1 g/dl (32.0-36.0) 08/27/19 08:05 RDW 14.4 % (11.6-15.6) 08/27/19 08:05 Plt Count 440 K/MM3 (134-434) H 08/27/19 08:05 MPV 7.0 fl (7.5-11.1) L 08/27/19 08:05 CMP Sodium 142 mmol/L (136-145) 08/27/19 08:05 Potassium 3.6 mmol/L (3.5-5.1) 08/27/19 08:05 Chloride 104 mmol/L (98-107) 08/27/19 08:05 Carbon Dioxide 30 mmol/L (21-32) 08/27/19 08:05 Anion Gap 8 MMOL/L (8-16) 08/27/19 08:05 BUN 38.6 mg/dL (7-18) H 08/27/19 08:05 Creatinine 0.8 mg/dL (0.55-1.3) 08/27/19 08:05 Random Glucose 150 mg/dL (74-106) H 08/27/19 08:05 Calcium 8.8 mg/dL (8.5-10.1) 08/27/19 08:05 Total Bilirubin 0.3 mg/dL (0.2-1) 08/24/19 06:42 AST 16 U/L (15-37) 08/24/19 06:42 ALT 28 U/L (13-61) 08/24/19 06:42 Alkaline Phosphatase 59 U/L (45-117) 08/24/19 06:42 Total Protein 6.7 g/dl (6.4-8.2) 08/24/19 06:42 Albumin 3.2 g/dl (3.4-5.0) L 08/24/19 06:42 Current Medications Generic Name Dose Route Start Last Admin Trade Name Freq PRN Reason Stop Dose Admin Dexamethasone Sodium Phosphate 4 mg 08/26/19 03:00 08/28/19 16:11 Decadron Injection - IVPUSH 4 mg Q6H-IV SEBASTIÁN Administration Docusate Sodium 100 mg 08/28/19 17:29 Colace - PO BID PRN CONSTIPATION Gabapentin 100 mg 08/25/19 12:15 08/28/19 09:02 Neurontin - PO 100 mg BID SEBASTIÁN Administration HCTZ/Losartan Potassium 2 tab 08/24/19 10:00 08/28/19 11:08 Hyzaar - PO 2 tab DAILY SEBASTIÁN Administration Insulin Aspart 1 vial 08/25/19 22:00 08/28/19 16:23 Novolog Vial Sliding Scale - SQ 8 units ACHS SEBASTIÁN Administration Protocol Insulin Detemir 5 units 08/26/19 07:00 08/28/19 06:17 Levemir Vial SQ 5 units AM SEBASTIÁN Administration Lidocaine 1 patch 08/25/19 11:15 08/28/19 09:03 Lidoderm Patch - TP 1 patch DAILY SEBASTIÁN Administration Metoprolol Succinate 100 mg 08/24/19 10:00 08/28/19 09:01 Toprol Xl - PO 100 mg DAILY SEBASTIÁN Administration Miscellaneous 1 each 08/25/19 22:00 08/27/19 21:07 Lidoderm Patch Removal MC 1 each DAILY@2200 SEBASTIÁN Administration Oxycodone HCl 5 mg 08/24/19 08:15 08/28/19 13:53 Roxicodone - PO 5 mg Q4H PRN Administration PAIN LEVEL 4-6 Pantoprazole Sodium 20 mg 08/25/19 12:15 08/28/19 09:00 Protonix - PO 20 mg DAILY SEBASTIÁN Administration Home Medications Medication Instructions Recorded Calcium Carbonate/Vitamin D3 1 tab PO BID 08/23/19 [Calcium 600 + Vit D Tablet] Lactobacillus Acidophilus 1 each PO BID 08/23/19 [Acidophilus] Losartan/Hydrochlorothiazide 1 tab PO DAILY 08/23/19 [Losartan-Hctz 100-25 mg Tab] Metaxalone [Skelaxin] 800 mg PO Q8H PRN 08/23/19 Metformin HCl [Glucophage] 1,000 mg PO BID 08/23/19 Metoprolol Succinate 100 mg PO DAILY 08/23/19 Naproxen 500 mg PO Q12H PRN 08/23/19 Prednisone 10 mg PO Q12H 08/23/19 Tramadol HCl 50 mg PO Q6H PRN 08/23/19 Amlodipine Besylate [Norvasc -] 5 mg PO DAILY 08/24/19 CT CAP shows sub cm pulmonary nodules, thyroid nodules, kidney cysts (vs mass) as well as sacral mass. 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 patient is going for CT guided Bx today by IR pending - cont decadron, cont pain control with oxy, morphine and lidocaine patch , cont neurontin , analgesics, neurologic monitoring. - plan on palliative radiation depends on bx results -For bone scan. # CT Abd /pelvis /chest reviewed. lung nodules and renal complex cyst/? mass . patient was informed of results ,; bone scan per ONc - Records obtained. Her original breast tumor was ER, [place] positive . records were left in chart # Leukocytosis: due to steroids .will continue to monitor # T2DM : hold metformin and cont SSI , cont low dose levemir while on steroids - has been on steroids x 2 weeks as out pt. avoid abrupt cessation. # HTN elevated : cont home meds Losartan/HCTZ and metoprolol, will monitor possible due to being anxious due to having Bx DVT px: will cont SCds. hold chemical for bx. will place on lovenox after Bx
[2019-08-28] MEDS: LIDOCAINE PATCH REMOVAL MC SCH (21:24)
[2019-08-29] MEDS: DEXAMETHASONE SOD PHOSPHATE 10 MG/1 ML VIAL IVPUSH SCH ×2 (02:21→09:59)
[2019-08-29] MEDS: INSULIN (LEVEMIR) 100 UNITS/ML UNITS SQ SCH (06:39)
[2019-08-29] MEDS: INSULIN SLIDING SCALE (NOVOLOG) 1 VIAL SQ SCH ×4 (06:41→21:46)
--- NOTE | 2019-08-29 08:18 | PN ---
Progress Note (short form) - Note Progress Note: NEUROSURGERY Pain better now Able to ambulate yesterday CT guided bx result pending PE: AF, VSS HEENT- NC/AT; Neck- supple; Cor- RRR; Lungs- CTA B; Abd- benign; Ext- no sign of DVT, L ankle callus/tenderness CN- intact; Motor- 5 B IP/Quad/TA/EHL/gastroc except L ankle and R IP 4+ pain limited; Sensation- intact LT/vibration; DTR- 2+ except diminished B ankle reflexes Breast CA met to sacrum vs new vertebral/sacral neoplasm Check path and medical tx accordingly Bowel regimen Mobilize/PT
--- NOTE | 2019-08-29 09:15 | PN ---
Teaching Attending Note Name of Resident: Raimundo Ruiz ATTENDING PHYSICIAN STATEMENT I saw and evaluated the patient. I reviewed the resident's note and discussed the case with the resident. I agree with the resident's findings and plan as documented. SUBJECTIVE: patient is having difficulty standing up and unable to ambulate. Vital Signs Temperature 97.7 F 08/29/19 06:00 Pulse Rate 71 08/29/19 06:00 Respiratory Rate 18 08/29/19 06:00 Blood Pressure 160/58 L 08/29/19 06:00 O2 Sat by Pulse Oximetry (%) 95 08/28/19 21:00 GENERAL: The patient is awake, alert, and fully oriented, in no acute distress. HEAD: Normal with no signs of trauma. EYES: PERRL, extraocular movements intact, sclera anicteric, conjunctiva clear. ENT: Ears normal, oropharynx clear without exudates, moist mucous membranes. NECK: Trachea midline, full range of motion, supple. LUNGS: Breath sounds equal, clear to auscultation bilaterally, no wheezes, no crackles, no accessory muscle use. HEART: Regular rate and rhythm, S1, S2 without murmur, rub or gallop. ABDOMEN: Soft, Nt, ND, normoactive bowel sounds, no guarding, no rebound, no hepatosplenomegaly, no masses. EXTREMITIES: 2+ pulses, warm, well-perfused, no edema. good ROM L>R. NEUROLOGICAL: Cranial nerves II through XII grossly intact. Normal speech, gait not observed. PSYCH: Normal mood, normal affect. SKIN: Warm, dry, normal turgor, no rashes or lesions noted CBCD WBC 14.2 K/mm3 (4.0-10.0) H 08/27/19 08:05 RBC 4.38 M/mm3 (3.60-5.2) 08/27/19 08:05 Hgb 12.5 GM/dL (10.7-15.3) 08/27/19 08:05 Hct 36.7 % (32.4-45.2) 08/27/19 08:05 MCV 83.8 fl (80-96) 08/27/19 08:05 MCHC 34.1 g/dl (32.0-36.0) 08/27/19 08:05 RDW 14.4 % (11.6-15.6) 08/27/19 08:05 Plt Count 440 K/MM3 (134-434) H 08/27/19 08:05 MPV 7.0 fl (7.5-11.1) L 08/27/19 08:05 CMP Sodium 142 mmol/L (136-145) 08/27/19 08:05 Potassium 3.6 mmol/L (3.5-5.1) 08/27/19 08:05 Chloride 104 mmol/L (98-107) 08/27/19 08:05 Carbon Dioxide 30 mmol/L (21-32) 08/27/19 08:05 Anion Gap 8 MMOL/L (8-16) 08/27/19 08:05 BUN 38.6 mg/dL (7-18) H 08/27/19 08:05 Creatinine 0.8 mg/dL (0.55-1.3) 08/27/19 08:05 Random Glucose 150 mg/dL (74-106) H 08/27/19 08:05 Calcium 8.8 mg/dL (8.5-10.1) 08/27/19 08:05 Total Bilirubin 0.3 mg/dL (0.2-1) 08/24/19 06:42 AST 16 U/L (15-37) 08/24/19 06:42 ALT 28 U/L (13-61) 08/24/19 06:42 Alkaline Phosphatase 59 U/L (45-117) 08/24/19 06:42 Total Protein 6.7 g/dl (6.4-8.2) 08/24/19 06:42 Albumin 3.2 g/dl (3.4-5.0) L 08/24/19 06:42 Current Medications Generic Name Dose Route Start Last Admin Trade Name Freq PRN Reason Stop Dose Admin Amlodipine Besylate 5 mg 08/29/19 10:00 Norvasc - PO DAILY SEBASTIÁN Dexamethasone Sodium Phosphate 4 mg 08/26/19 03:00 08/29/19 02:21 Decadron Injection - IVPUSH 4 mg Q6H-IV SEBASTIÁN Administration Docusate Sodium 100 mg 08/28/19 17:29 Colace - PO BID PRN CONSTIPATION Gabapentin 100 mg 08/25/19 12:15 08/28/19 21:17 Neurontin - PO 100 mg BID SEBASTIÁN Administration HCTZ/Losartan Potassium 2 tab 01/26/20 10:00 08/28/19 11:08 Hyzaar - PO 2 tab DAILY SEBASTIÁN Administration Insulin Aspart 1 vial 08/25/19 22:00 08/29/19 06:41 Novolog Vial Sliding Scale - SQ 2 units ACHS SEBASTIÁN Administration Protocol Insulin Detemir 5 units 08/26/19 07:00 08/29/19 06:39 Levemir Vial SQ 5 units AM SEBASTIÁN Administration Lidocaine 1 patch 08/25/19 11:15 08/28/19 09:03 Lidoderm Patch - TP 1 patch DAILY SEBASTIÁN Administration Metoprolol Succinate 100 mg 08/24/19 10:00 08/28/19 09:01 Toprol Xl - PO 100 mg DAILY SEBASTIÁN Administration Miscellaneous 1 each 08/25/19 22:00 08/28/19 21:24 Lidoderm Patch Removal MC Not Given DAILY@2200 SEBASTIÁN Pantoprazole Sodium 20 mg 08/25/19 12:15 08/28/19 09:00 Protonix - PO 20 mg DAILY SEBASTIÁN Administration Home Medications Medication Instructions Recorded Calcium Carbonate/Vitamin D3 1 tab PO BID 08/23/19 [Calcium 600 + Vit D Tablet] Lactobacillus Acidophilus 1 each PO BID 08/23/19 [Acidophilus] Losartan/Hydrochlorothiazide 1 tab PO DAILY 08/23/19 [Losartan-Hctz 100-25 mg Tab] Metaxalone [Skelaxin] 800 mg PO Q8H PRN 08/23/19 Metformin HCl [Glucophage] 1,000 mg PO BID 08/23/19 Metoprolol Succinate 100 mg PO DAILY 08/23/19 Naproxen 500 mg PO Q12H PRN 08/23/19 Prednisone 10 mg PO Q12H 08/23/19 Tramadol HCl 50 mg PO Q6H PRN 08/23/19 Amlodipine Besylate [Norvasc -] 5 mg PO DAILY 08/24/19 CT and MRI LS spine - L3-4 spondylolisthesis, L4-5 and L5-S1 DDD; lytic/ expansile lesion S1 and S2 with posterior cortex bowing and anterior thecal sac impingement; B S1 root impingement; Axial images only down to about S1; R iliac bone involvement CT C/A/P: shows sub cm pulmonary nodules, thyroid nodules, kidney cysts (vs mass) as well as sacral mass. 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 s/p CT guided Bx result still pending, cont decadron , lidocaine and neurontin pain is improving. plan on palliative radiation depends on bx results . # CT Abd /pelvis /chest reviewed. lung nodules and renal complex cyst/? mass . patient was informed of results , bone scan per ONc - Records obtained. Her original breast tumor was ER, [place] positive . records were left in chart # Leukocytosis: due to steroids .will continue to monitor # T2DM : hold metformin and cont SSI , cont low dose levemir while on steroids - has been on steroids x 2 weeks as out pt. avoid abrupt cessation. # HTN elevated : cont home meds Losartan/HCTZ and metoprolol, will monitor possible due to being anxious due to having Bx DVT px: will cont SCds. hold chemical for bx. will place on lovenox after Bx CT guided bx result pending For bone scan. RT plans pending results. will arrange for rehab for physical therapy
[2019-08-29] MEDS ORDERED: PT OWN MED DRAWER 7, Y5N ONE (09:58)
[2019-08-29] MEDS: GABAPENTIN 100 MG CAPSULE PO SCH ×3 (09:59→21:42)
[2019-08-29] MEDS: LOSARTAN 50MG/HCTZ 12.5MG 1 TAB (FP) PO SCH (10:00)
[2019-08-29] MEDS: amLODIPine BESYLATE 5 MG TABLET (FP) PO SCH (10:00)
[2019-08-29] MEDS: PANTOPRAZOLE 20 MG TABLET PO SCH (10:00)
[2019-08-29] MEDS: LIDOCAINE 5% TOPICAL PATCH TP SCH (10:00)
[2019-08-29] MEDS: oxyCODONE HCL 5 MG TABLET PO PRN ×2 (11:04→21:49)
--- NOTE | 2019-08-29 13:44 | PN ---
Progress Note (short form) - Note Progress Note: Patient seen /examined Frustrated Spoke with daughter and sister Path not available Awaiting path and then treatment recommendations. Dr. Willie Fortune - patient oncologist in [place].
[2019-08-29] MEDS: ENOXAPARIN NA (PORCINE) 40 MG/0.4 ML DISP.SYRIN SQ SCH (14:20)
--- NOTE | 2019-08-29 17:46 | PN ---
Physical Exam: SUBJECTIVE: Patient seen and examined OBJECTIVE: Vital Signs Period Temp Pulse Resp BP Sys/Mendes Pulse Ox Last 24 Hr 97.7 F-98.1 F 71-86 18-20 124-160/58-97 95-97 GENERAL: The patient is awake, alert, and fully oriented, in no acute distress. HEAD: NC/AT, no temporal wasting EYES: PERRL, extraocular movements intact, sclera anicteric, pale conjunctiva. No ptosis. ENT: Ears normal, nares patent, oropharynx clear without exudates, moist mucous membranes. NECK: Trachea midline, full range of motion, supple. LUNGS: Breath sounds equal, clear to auscultation bilaterally, no wheezes, no crackles, no accessory muscle use. Breathing room air HEART: Regular rate and rhythm, S1, S2 without murmur, rub or gallop. ABDOMEN: Soft, nontender, nondistended, normoactive bowel sounds, no guarding, no rebound. EXTREMITIES: 2+ pulses, warm, well-perfused, no edema. NEUROLOGICAL: Cranial nerves II through XII grossly intact. Normal speech. Painful AROM of LLE knee flexion, hip flexion. Sensation grossly intact in BLE. TTP of lower midline L-spine. Grossly swollen Left ankle w/o point tenderness PSYCH: Normal mood, normal affect. SKIN: Warm, dry, normal turgor, no rashes or lesions noted Laboratory Results - last 24 hr 08/28/19 08/29/19 08/29/19 21:25 06:38 11:16 POC Glucometer 227 190 287 Active Medications Generic Name Dose Route Start Last Admin Trade Name Freq PRN Reason Stop Dose Admin Amlodipine Besylate 5 mg 08/29/19 10:08/29/19 10:00 Norvasc - PO 5 mg DAILY SEBASTIÁN Administration Dexamethasone 4 mg 08/29/19 22:00 Decadron - PO BID SEBASTIÁN Docusate Sodium 100 mg 08/28/19 17:29 Colace - PO BID PRN CONSTIPATION Enoxaparin Sodium 40 mg 08/29/19 13:30 08/29/19 14:20 Lovenox - SQ 40 mg DAILY SEBASTIÁN Administration Gabapentin 100 mg 08/29/19 14:00 08/29/19 14:21 Neurontin - PO 100 mg TID SEBASTIÁN Administration HCTZ/Losartan Potassium 2 tab 08/24/19 10:00 08/29/19 10:00 Hyzaar - PO 2 tab DAILY SEBASTIÁN Administration Insulin Aspart 1 vial 08/25/19 22:00 08/29/19 11:17 Novolog Vial Sliding Scale - SQ 6 units ACHS SEBASTIÁN Administration Protocol Insulin Detemir 5 units 08/26/19 07:00 08/29/19 06:39 Levemir Vial SQ 5 units AM SEBASTIÁN Administration Lidocaine 1 patch 08/25/19 11:15 08/29/19 10:00 Lidoderm Patch - TP 1 patch DAILY SEBASTIÁN Administration Metoprolol Succinate 100 mg 08/24/19 10:00 08/29/19 10:00 Toprol Xl - PO 100 mg DAILY SEBASTIÁN Administration Miscellaneous 1 each 08/25/19 22:00 08/28/19 21:24 Lidoderm Patch Removal MC Not Given DAILY@2200 SEBASTIÁN Oxycodone HCl 5 mg 08/29/19 10:39 08/29/19 11:04 Roxicodone - PO 5 mg Q8H PRN Administration PAIN LEVEL 6-10 Pantoprazole Sodium 20 mg 08/25/19 12:15 08/29/19 10:00 Protonix - PO 20 mg DAILY SEBASTIÁN Administration ASSESSMENT/PLAN: 84F w/ pmh of HTN, NIDDM, Left ankle fracture(2019), 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 CT imaging suggesting anterolithesis of L-spine. 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 Neurosurgery(Adwoa) recommended surgical intervention w/ biopsy and debulking. 2nd opinion by Neurosurgery(Alvaro) recommended CT-guided bx, MedOnc, RadOnc, look for occult malignancy w/ CT chest /abd/pelv + Nuclear Bone Scan. S/P CT-guided bx(08/27/19). Decadron changed from IV to PO # Lumbar spine anterolisthesis # Sacral spinal mass > CT lumbar spine: anterolisthesis of L3, L4, disc bulging with possible left lateral herniated component narrowing the left foramen L2-3, and L3-L4. L4-5 disc bulging with a probable right-sided herniated component affecting the right anterior canal and right foramen. Possible L5 nerve root impingement. > MRI: malignant mass at S1, S2 w/ extension in the epidural layer, causing compression of b/l S1 nerve roots, 1cm Right iliac bone lesion - Neurosurgery consult (Dr. Orona): rec sx w/ biopsy/debulking - Neurosurgery 2nd consult(Dr John): CT-guided bx, MedOnc, RadOnc, look for occult malignancy w/ CT chest/abd/pelv + Nuclear Bone Scan - s/p CT-guided bx(08/27/19) - dexamethasone 10mg IVP q6h --> dexamethasone 4mg q6h PO - Pain regimen: --morphine 2mg, oxycodone 5 / 10 --gabapentin 100 PO BID --lidoderm # constipation: - colace 100mg BID PRN # occult mass vs secondary malignancy > CT chest/A/P: multiple lung nodules(<1cm), thyroid gland w/ multiple nodules(R --2.7x1.8cm; L--1.8x1.5cm), hepatic lesion 8mm, L kidney subcortical cyst vs tumor(2.8 x2.6x2.5cm). Sacral lesion 3.9x3x7.2cm extending into epidural space > Bone Scan --pending read # Hypertension - HCTZ/Losartan 2tab PO QD -Metoprolol 100mg PO daily Diabetes mellitus -ISS ACHS -BGM ACHS FEN - diabetic diet Prophylaxis - SCDs bilateral lower extremities - pantoprazole(for steroids) Disposition - med-surg Visit type - Emergency Visit Emergency Visit: No - New Patient This patient is new to me today: No - Critical Care Critical Care patient: No ATTENDING PHYSICIAN STATEMENT I saw and evaluated the patient. I reviewed the resident's note and discussed the case with the resident. I agree with the resident's findings and plan as documented. SUBJECTIVE: OBJECTIVE: ASSESSMENT AND PLAN:
[2019-08-29] MEDS: DEXAMETHASONE 4 MG TABLET (FP) PO SCH (21:42)
[2019-08-29] MEDS: LIDOCAINE PATCH REMOVAL MC SCH (21:42)
[2019-08-30] MEDS: GABAPENTIN 100 MG CAPSULE PO SCH ×3 (06:37→21:50)
[2019-08-30] MEDS: INSULIN SLIDING SCALE (NOVOLOG) 1 VIAL SQ SCH ×4 (06:39→21:48)
[2019-08-30] MEDS: INSULIN (LEVEMIR) 100 UNITS/ML UNITS SQ SCH (06:40)
[2019-08-30] MEDS ORDERED: PT OWN MED DRAWER 7, Y5N ONE (09:46)
[2019-08-30] MEDS: amLODIPine BESYLATE 5 MG TABLET (FP) PO SCH (09:47)
[2019-08-30] MEDS: PANTOPRAZOLE 20 MG TABLET PO SCH (09:47)
[2019-08-30] MEDS: DEXAMETHASONE 4 MG TABLET (FP) PO SCH ×2 (09:47→21:50)
[2019-08-30] MEDS: LOSARTAN 50MG/HCTZ 12.5MG 1 TAB (FP) PO SCH (09:48)
[2019-08-30] MEDS: ENOXAPARIN NA (PORCINE) 40 MG/0.4 ML DISP.SYRIN SQ SCH (09:48)
[2019-08-30] MEDS: LIDOCAINE 5% TOPICAL PATCH TP SCH (09:48)
--- NOTE | 2019-08-30 11:53 | PN ---
Progress Note (short form) - Note Progress Note: NEUROSURGERY Able to ambulate yesterday CT guided bx result pending PE: AF, VSS HEENT- NC/AT; Neck- supple; Cor- RRR; Lungs- CTA B; Abd- benign; Ext- no sign of DVT, L ankle callus/tenderness CN- intact; Motor- 5 B IP/Quad/TA/EHL/gastroc except L ankle and R IP 4+ pain limited; Sensation- intact LT/vibration; DTR- 2+ except diminished B ankle reflexes Bone scan c/w sacral tumor Breast CA met to sacrum vs new vertebral/sacral neoplasm Check path and medical tx accordingly Bowel regimen On decadron 4 mg po bid For palliative RT Mobilize/PT
--- NOTE | 2019-08-30 17:03 | PN ---
Progress Note (short form) - Note Progress Note: Patient continues to have pain, unable to ambulate , improving slowly. cannot sit on the bed ,only can lie flat in the bed due to having severe pain with parasthesia and numbness. Vital Signs Temperature 98.0 F 08/30/19 14:25 Pulse Rate 81 08/30/19 14:25 Respiratory Rate 20 08/30/19 14:25 Blood Pressure 152/70 08/30/19 14:25 O2 Sat by Pulse Oximetry (%) 96 08/29/19 19:38 GENERAL: The patient is awake, alert, and fully oriented, in no acute distress. HEAD: Normal with no signs of trauma. EYES: PERRL, extraocular movements intact, sclera anicteric, conjunctiva clear. ENT: Ears normal, oropharynx clear without exudates, moist mucous membranes. NECK: Trachea midline, full range of motion, supple. LUNGS: Breath sounds equal, clear to auscultation bilaterally, no wheezes, no crackles, no accessory muscle use. HEART: Regular rate and rhythm, S1, S2 without murmur, rub or gallop. ABDOMEN: Soft, nontender, nondistended, normoactive bowel sounds, no guarding, no rebound, no hepatosplenomegaly, no masses. EXTREMITIES: 2+ pulses, warm, well-perfused, no edema. good ROM L>R. NEUROLOGICAL: Cranial nerves II through XII grossly intact. Normal speech, gait not observed. PSYCH: Normal mood, normal affect. SKIN: Warm, dry, normal turgor, no rashes or lesions noted CBCD WBC 14.2 K/mm3 (4.0-10.0) H 08/27/19 08:05 RBC 4.38 M/mm3 (3.60-5.2) 08/27/19 08:05 Hgb 12.5 GM/dL (10.7-15.3) 08/27/19 08:05 Hct 36.7 % (32.4-45.2) 08/27/19 08:05 MCV 83.8 fl (80-96) 08/27/19 08:05 MCHC 34.1 g/dl (32.0-36.0) 08/27/19 08:05 RDW 14.4 % (11.6-15.6) 08/27/19 08:05 Plt Count 440 K/MM3 (134-434) H 08/27/19 08:05 MPV 7.0 fl (7.5-11.1) L 08/27/19 08:05 CMP Sodium 142 mmol/L (136-145) 08/27/19 08:05 Potassium 3.6 mmol/L (3.5-5.1) 08/27/19 08:05 Chloride 104 mmol/L (98-107) 08/27/19 08:05 Carbon Dioxide 30 mmol/L (21-32) 08/27/19 08:05 Anion Gap 8 MMOL/L (8-16) 08/27/19 08:05 BUN 38.6 mg/dL (7-18) H 08/27/19 08:05 Creatinine 0.8 mg/dL (0.55-1.3) 08/27/19 08:05 Random Glucose 150 mg/dL (74-106) H 08/27/19 08:05 Calcium 8.8 mg/dL (8.5-10.1) 08/27/19 08:05 Total Bilirubin 0.3 mg/dL (0.2-1) 08/24/19 06:42 AST 16 U/L (15-37) 08/24/19 06:42 ALT 28 U/L (13-61) 08/24/19 06:42 Alkaline Phosphatase 59 U/L (45-117) 08/24/19 06:42 Total Protein 6.7 g/dl (6.4-8.2) 08/24/19 06:42 Albumin 3.2 g/dl (3.4-5.0) L 08/24/19 06:42 Current Medications Generic Name Dose Route Start Last Admin Trade Name Freq PRN Reason Stop Dose Admin Amlodipine Besylate 5 mg 08/29/19 10:00 08/30/19 09:47 Norvasc - PO 5 mg DAILY SEBASTIÁN Administration Dexamethasone 4 mg 08/29/19 22:00 08/30/19 09:47 Decadron - PO 4 mg BID SEBASTIÁN Administration Docusate Sodium 100 mg 08/28/19 17:29 Colace - PO BID PRN CONSTIPATION Enoxaparin Sodium 40 mg 08/29/19 13:30 08/30/19 09:48 Lovenox - SQ 40 mg DAILY SEBASTIÁN Administration Gabapentin 100 mg 08/29/19 14:00 08/30/19 13:47 Neurontin - PO 100 mg TID SEBASTIÁN Administration HCTZ/Losartan Potassium 2 tab 08/24/19 10:00 08/30/19 09:48 Hyzaar - PO 2 tab DAILY SEBASTIÁN Administration Insulin Aspart 1 vial 08/25/19 22:00 08/30/19 11:55 Novolog Vial Sliding Scale - SQ 4 units ACHS SEBASTIÁN Administration Protocol Insulin Detemir 5 units 08/26/19 07:00 08/30/19 06:40 Levemir Vial SQ 5 units AM SEBASTIÁN Administration Lidocaine 1 patch 08/25/19 11:15 08/30/19 09:48 Lidoderm Patch - TP 1 patch DAILY SEBASTIÁN Administration Metoprolol Succinate 100 mg 08/24/19 10:00 08/30/19 09:47 Toprol Xl - PO 100 mg DAILY SEBASTIÁN Administration Miscellaneous 1 each 08/25/19 22:00 08/29/19 21:42 Lidoderm Patch Removal MC Not Given DAILY@2200 [facility] Oxycodone HCl 5 mg 08/29/19 10:39 08/29/19 21:49 Roxicodone - PO 5 mg Q8H PRN Administration PAIN LEVEL 6-10 Pantoprazole Sodium 20 mg 08/25/19 12:15 08/30/19 09:47 Protonix - PO 20 mg DAILY SEBASTIÁN Administration Home Medications Medication Instructions Recorded Calcium Carbonate/Vitamin D3 1 tab PO BID 08/23/19 [Calcium 600 + Vit D Tablet] Lactobacillus Acidophilus 1 each PO BID 08/23/19 [Acidophilus] Losartan/Hydrochlorothiazide 1 tab PO DAILY 08/23/19 [Losartan-Hctz 100-25 mg Tab] Metaxalone [Skelaxin] 800 mg PO Q8H PRN 08/23/19 Metformin HCl [Glucophage] 1,000 mg PO BID 08/23/19 Metoprolol Succinate 100 mg PO DAILY 08/23/19 Naproxen 500 mg PO Q12H PRN 08/23/19 Prednisone 10 mg PO Q12H 08/23/19 Tramadol HCl 50 mg PO Q6H PRN 08/23/19 Amlodipine Besylate [Norvasc -] 5 mg PO DAILY 08/24/19 CT and MRI LS spine - L3-4 spondylolisthesis, L4-5 and L5-S1 DDD; lytic/ expansile lesion S1 and S2 with posterior cortex bowing and anterior thecal sac impingement; B S1 root impingement; Axial images only down to about S1; R iliac bone involvement CT C/A/P: shows sub cm pulmonary nodules, thyroid nodules, kidney cysts (vs mass) as well as sacral mass. 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 s/p CT guided Bx result still pending, cont decadron , lidocaine and neurontin pain is improving. plan on palliative radiation depends on bx results . pending rehab. since patient is unable to care for herself and lives by herself. # CT Abd /pelvis /chest reviewed. lung nodules and renal complex cyst/? mass . patient was informed of results , bone scan per ONc - Records obtained. Her original breast tumor was ER, [place] positive . records were left in chart # Leukocytosis: due to steroids .will continue to monitor # T2DM : hold metformin and cont SSI , cont levemir will adjust the dose since on steroids - has been on steroids x 2 weeks as out pt. avoid abrupt cessation. # HTN elevated : cont home meds Losartan and metoprolol, will monitor possible due to being anxious due to having Bx DVT px: will cont SCds. hold chemical for bx. will place on lovenox after Bx CT guided bx result pending For bone scan. RT plans pending results. will arrange for rehab for physical therapy Visit type - Emergency Visit Emergency Visit: Yes ED Registration Date: 08/24/19 Care time: The patient presented to the Emergency Department on the above date and was hospitalized for further evaluation of their emergent condition. - New Patient This patient is new to me today: No - Critical Care Critical Care patient: No - Discharge Referral Referred to [facility] Med P.C.: No
[2019-08-30] MEDS: LIDOCAINE PATCH REMOVAL MC SCH (21:50)
[2019-08-31] MEDS: GABAPENTIN 100 MG CAPSULE PO SCH (06:29)
[2019-08-31] MEDS: INSULIN (LEVEMIR) 100 UNITS/ML UNITS SQ SCH (06:30)
[2019-08-31] MEDS: INSULIN SLIDING SCALE (NOVOLOG) 1 VIAL SQ SCH ×4 (06:31→22:33)
[2019-08-31] MEDS ORDERED: PT OWN MED DRAWER 7, Y5N ONE (09:57)
[2019-08-31] MEDS: LIDOCAINE 5% TOPICAL PATCH TP SCH (10:04)
[2019-08-31] MEDS: LOSARTAN 50MG/HCTZ 12.5MG 1 TAB (FP) PO SCH (10:04)
[2019-08-31] MEDS: DEXAMETHASONE 4 MG TABLET (FP) PO SCH ×3 (10:04→21:46)
[2019-08-31] MEDS: amLODIPine BESYLATE 5 MG TABLET (FP) PO SCH (10:04)
[2019-08-31] MEDS: PANTOPRAZOLE 20 MG TABLET PO SCH (10:04)
[2019-08-31] MEDS: ENOXAPARIN NA (PORCINE) 40 MG/0.4 ML DISP.SYRIN SQ SCH (10:04)
--- NOTE | 2019-08-31 11:05 | PN ---
Progress Note (short form) - Note Progress Note: NEUROSURGERY LBP better lying down LE paresthesia L thigh spasm CT guided bx result pending PE: AF, VSS HEENT- NC/AT; Neck- supple; Cor- RRR; Lungs- CTA B; Abd- benign; Ext- no sign of DVT, L ankle callus/tenderness CN- intact; Motor- 5 B IP/Quad/TA/EHL/gastroc except L ankle and R IP 4- pain/ spasm limited; Sensation- intact LT/vibration; DTR- 2+ except diminished B ankle reflexes Bone scan c/w sacral tumor Breast CA met to sacrum vs new vertebral/sacral neoplasm Check path and medical tx accordingly Bowel regimen Increase to decadron 4 mg po tid Increase neurontin to 300 tid For palliative RT as soon as path available Mobilize/PT
--- NOTE | 2019-08-31 12:20 | PN ---
Physical Exam: SUBJECTIVE: Patient seen and examined at bedside. Endorses minimal pain, temporarily palliated with Oxycodone, Lidoderm Patch. OBJECTIVE: Vital Signs Period Temp Pulse Resp BP Sys/Mendes Pulse Ox Last 24 Hr 97.6 F-98.7 F 72-91 18-20 109-152/55-70 95 GENERAL: The patient is awake, alert, and fully oriented, in no acute distress. HEAD: Normocephalic, atraumatic. EYES: PERRL, extraocular movements intact, sclera anicteric, conjunctiva clear. ENT: Oropharynx clear, without erythema or exudates. Moist mucous membranes. NECK: Trachea midline, full range of motion. Supple without lymphadenopathy. LUNGS: Breath sounds equal, clear to auscultation bilaterally. No wheezes, no crackles. No accessory muscle use. HEART: Regular rate and rhythm. S1, S2 without murmur, rub or gallop. ABDOMEN: Soft, nondistended, nontender to light and deep palpation x4 quadrants. No rebound tenderness, no guarding. Normoactive bowel sounds x4 quadrants. No hepatosplenomegaly, no masses appreciated. EXTREMITIES: 2+ radial, dorsalis pedis pulses bilaterally. Warm, well-perfused. No lower extremity edema bilaterally. Left ankle s/p fracture. NEUROLOGICAL: Cranial nerves II through XII grossly intact. Normal speech. Lower extremity strength 3/5 in hip flexion, extension, and 4/5 knee flexion, extension, dorsiflexion, plantarflexion. Sensation grossly intact bilateral upper and lower extremities. PSYCH: Normal mood, normal affect upon my encounter. SKIN: Warm, dry. 1cm area or erythema at left medial malleolus. Laboratory Results - last 24 hr 08/30/19 08/30/19 08/31/19 17:36 21:46 06:23 POC Glucometer 203 174 211 08/31/19 11:43 POC Glucometer 174 Active Medications Generic Name Dose Route Start Last Admin Trade Name Freq PRN Reason Stop Dose Admin Amlodipine Besylate 5 mg 08/29/19 10:00 08/31/19 10:04 Norvasc - PO 5 mg DAILY SEBASTIÁN Administration Dexamethasone 4 mg 08/31/19 14:00 Decadron - PO TID SEBASTIÁN Docusate Sodium 100 mg 08/28/19 17:29 Colace - PO BID PRN CONSTIPATION Enoxaparin Sodium 40 mg 08/29/19 13:30 08/31/19 10:04 Lovenox - SQ 40 mg DAILY SEBASTIÁN Administration Gabapentin 300 mg 08/31/19 14:00 Neurontin - PO TID SEBASTIÁN HCTZ/Losartan Potassium 2 tab 08/24/19 10:00 08/31/19 10:04 Hyzaar - PO 2 tab DAILY SEBASTIÁN Administration Insulin Aspart 1 vial 08/25/19 22:00 08/31/19 11:44 Novolog Vial Sliding Scale - SQ 2 units ACHS ESBASTIÁN Administration Protocol Insulin Detemir 6 units 08/31/19 07:00 08/31/19 06:30 Levemir Vial SQ 6 units AM SEBASTIÁN Administration Lidocaine 1 patch 08/25/19 11:15 08/31/19 10:04 Lidoderm Patch - TP 1 patch DAILY SEBASTIÁN Administration Metoprolol Succinate 100 mg 08/24/19 10:00 08/31/19 10:04 Toprol Xl - PO 100 mg DAILY SEBASTIÁN Administration Miscellaneous 1 each 08/25/19 22:00 08/30/19 21:50 Lidoderm Patch Removal MC Not Given DAILY@2200 SEBASTIÁN Oxycodone HCl 5 mg 08/29/19 10:39 08/29/19 21:49 Roxicodone - PO 5 mg Q8H PRN Administration PAIN LEVEL 6-10 Pantoprazole Sodium 20 mg 08/25/19 12:15 08/31/19 10:04 Protonix - PO 20 mg DAILY SEBASTIÁN Administration ASSESSMENT/PLAN: Patient is an 84 year old female with history of recent left ankle fracture, hypertension, diabetes mellitus, breast cancer (s/p lumpectomy) presents with complaint of back pain. 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 1cm right iliac bone lesion noted. -Neurosurgery consult appreciated. -Radiation oncology consult appreciated. Palliative radiotherapy pending pathology results. Follow bone biopsy. -Hematology/ oncolog consult appreciated. -Decadron 4mg PO Q6 hours -Pantoprazole 20mg PO daily while on steroids -Oxycodone 5mg PO Q8 hours PRN for pain 6-10 -Lidoderm patch -Physical therapy evaluation. Patient pending rehab placement. Hypertension -Losartan 100mg PO daily -Metoprolol 100mg PO daily -Amlodipine 5 mg PO daily Diabetes mellitus -Insulin sliding scale ACHS -Fingerstick blood glucose monitoring ACHS -Levemir 6 units subq daily FEN -No IV fluids indicated. -Follow BMP -Diabetic, sodium diet Prophylaxis -SCDs bilateral lower extremities -Pantoprazole 20mg PO daily Disposition -Continue care in medical surgical floor. Visit type - Emergency Visit Emergency Visit: Yes ED Registration Date: 08/24/19 Care time: The patient presented to the Emergency Department on the above date and was hospitalized for further evaluation of their emergent condition. - New Patient This patient is new to me today: No - Critical Care Critical Care patient: No - Discharge Referral Referred to [facility] Med P.C.: No ATTENDING PHYSICIAN STATEMENT I saw and evaluated the patient. I reviewed the resident's note and discussed the case with the resident. I agree with the resident's findings and plan as documented. SUBJECTIVE: OBJECTIVE: ASSESSMENT AND PLAN:
[2019-08-31] MEDS: GABAPENTIN 300 MG CAPSULE PO SCH ×2 (15:20→21:45)
[2019-08-31] MEDS ORDERED: ACETAMINOPHEN 325 MG TABLET (FP) PO PRN (16:32)
--- NOTE | 2019-08-31 19:27 | PN ---
Teaching Attending Note Name of Resident: Vito Arora ATTENDING PHYSICIAN STATEMENT I saw and evaluated the patient. I reviewed the resident's note and discussed the case with the resident. I agree with the resident's findings and plan as documented. SUBJECTIVE: Patient is feeling better with no acute distress. Vital Signs Temperature 98.5 F 08/31/19 17:13 Pulse Rate 76 08/31/19 17:13 Respiratory Rate 20 08/31/19 17:13 Blood Pressure 95/46 L 08/31/19 17:13 O2 Sat by Pulse Oximetry (%) 95 08/31/19 09:00 GENERAL: The patient is awake, alert, and fully oriented, in no acute distress. HEAD: Normal with no signs of trauma. EYES: PERRL, extraocular movements intact, sclera anicteric, conjunctiva clear. ENT: Ears normal, oropharynx clear without exudates, moist mucous membranes. NECK: Trachea midline, full range of motion, supple. LUNGS: Breath sounds equal, clear to auscultation bilaterally, no wheezes, no crackles, no accessory muscle use. HEART: Regular rate and rhythm, S1, S2 without murmur, rub or gallop. ABDOMEN: Soft, nontender, nondistended, normoactive bowel sounds, no guarding, no rebound, no hepatosplenomegaly, no masses. EXTREMITIES: 2+ pulses, warm, well-perfused, no edema. good ROM L>R. NEUROLOGICAL: Cranial nerves II through XII grossly intact. Normal speech, gait not observed. PSYCH: Normal mood, normal affect. SKIN: Warm, dry, normal turgor, no rashes or lesions noted CBCD WBC 14.2 K/mm3 (4.0-10.0) H 08/27/19 08:05 RBC 4.38 M/mm3 (3.60-5.2) 08/27/19 08:05 Hgb 12.5 GM/dL (10.7-15.3) 08/27/19 08:05 Hct 36.7 % (32.4-45.2) 08/27/19 08:05 MCV 83.8 fl (80-96) 08/27/19 08:05 MCHC 34.1 g/dl (32.0-36.0) 08/27/19 08:05 RDW 14.4 % (11.6-15.6) 08/27/19 08:05 Plt Count 440 K/MM3 (134-434) H 08/27/19 08:05 MPV 7.0 fl (7.5-11.1) L 08/27/19 08:05 CMP Sodium 142 mmol/L (136-145) 08/27/19 08:05 Potassium 3.6 mmol/L (3.5-5.1) 08/27/19 08:05 Chloride 104 mmol/L (98-107) 08/27/19 08:05 Carbon Dioxide 30 mmol/L (21-32) 08/27/19 08:05 Anion Gap 8 MMOL/L (8-16) 08/27/19 08:05 BUN 38.6 mg/dL (7-18) H 08/27/19 08:05 Creatinine 0.8 mg/dL (0.55-1.3) 08/27/19 08:05 Random Glucose 150 mg/dL (74-106) H 08/27/19 08:05 Calcium 8.8 mg/dL (8.5-10.1) 08/27/19 08:05 Total Bilirubin 0.3 mg/dL (0.2-1) 08/24/19 06:42 AST 16 U/L (15-37) 08/24/19 06:42 ALT 28 U/L (13-61) 08/24/19 06:42 Alkaline Phosphatase 59 U/L (45-117) 08/24/19 06:42 Total Protein 6.7 g/dl (6.4-8.2) 08/24/19 06:42 Albumin 3.2 g/dl (3.4-5.0) L 08/24/19 06:42 Home Medications Medication Instructions Recorded Calcium Carbonate/Vitamin D3 1 tab PO BID 08/23/19 [Calcium 600 + Vit D Tablet] Lactobacillus Acidophilus 1 each PO BID 08/23/19 [Acidophilus] Losartan/Hydrochlorothiazide 1 tab PO DAILY 08/23/19 [Losartan-Hctz 100-25 mg Tab] Metaxalone [Skelaxin] 800 mg PO Q8H PRN 08/23/19 Metformin HCl [Glucophage] 1,000 mg PO BID 08/23/19 Metoprolol Succinate 100 mg PO DAILY 08/23/19 Naproxen 500 mg PO Q12H PRN 08/23/19 Prednisone 10 mg PO Q12H 08/23/19 Tramadol HCl 50 mg PO Q6H PRN 08/23/19 Amlodipine Besylate [Norvasc -] 5 mg PO DAILY 08/24/19 Current Medications Generic Name Dose Route Start Last Admin Trade Name Freq PRN Reason Stop Dose Admin Acetaminophen 650 mg 08/31/19 16:32 Tylenol - PO Q6H PRN FEVER Amlodipine Besylate 5 mg 08/29/19 10:00 08/31/19 10:04 Norvasc - PO 5 mg DAILY SEBASTIÁN Administration Dexamethasone 4 mg 08/31/19 14:00 08/31/19 15:20 Decadron - PO 4 mg TID SEBASTIÁN Administration Docusate Sodium 100 mg 08/28/19 17:29 Colace - PO BID PRN CONSTIPATION Enoxaparin Sodium 40 mg 08/29/19 13:30 08/31/19 10:04 Lovenox - SQ 40 mg DAILY SEBASTIÁN Administration Gabapentin 300 mg 08/31/19 14:00 08/31/19 15:20 Neurontin - PO 300 mg TID SEBASTIÁN Administration HCTZ/Losartan Potassium 2 tab 08/24/19 10:00 08/31/19 10:04 Hyzaar - PO 2 tab DAILY SEBASTIÁN Administration Insulin Aspart 1 vial 08/25/19 22:00 08/31/19 16:54 Novolog Vial Sliding Scale - SQ 4 units ACHS SEBASTIÁN Administration Protocol Insulin Detemir 6 units 08/31/19 07:00 08/31/19 06:30 Levemir Vial SQ 6 units AM SEBASTIÁN Administration Lidocaine 1 patch 08/25/19 11:15 08/31/19 10:04 Lidoderm Patch - TP 1 patch DAILY SEBASTIÁN Administration Metoprolol Succinate 100 mg 08/24/19 10:00 08/31/19 10:04 Toprol Xl - PO 100 mg DAILY SEBASTIÁN Administration Miscellaneous 1 each 08/25/19 22:00 08/30/19 21:50 Lidoderm Patch Removal MC Not Given DAILY@2199 SEBASTI[facility]N Oxycodone HCl 5 mg 08/29/19 10:39 08/29/19 21:49 Roxicodone - PO 5 mg Q8H PRN Administration PAIN LEVEL 6-10 Pantoprazole Sodium 20 mg 08/25/19 12:15 08/31/19 10:04 Protonix - PO 20 mg DAILY SEBASTIÁN Administration CT and MRI LS spine - L3-4 spondylolisthesis, L4-5 and L5-S1 DDD; lytic/ expansile lesion S1 and S2 with posterior cortex bowing and anterior thecal sac impingement; B S1 root impingement; Axial images only down to about S1; R iliac bone involvement CT C/A/P: shows sub cm pulmonary nodules, thyroid nodules, kidney cysts (vs mass) as well as sacral mass. 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 s/p CT guided Bx result still pending, cont decadron , lidocaine and neurontin pain is improving. plan on palliative radiation , waiting for bx results . pending rehab. since patient is unable to care for herself and lives by herself. # CT Abd /pelvis /chest reviewed. lung nodules and renal complex cyst/? mass . patient was informed of results , bone scan per ONc Records obtained. Her original breast tumor was ER, [place] positive . records were left in chart # Leukocytosis: due to steroids .will continue to monitor # T2DM : hold metformin and cont SSI , cont levemir will adjust the dose since on steroids - has been on steroids x 2 weeks as out pt. avoid abrupt cessation. # HTN elevated : cont home meds Losartan and metoprolol, will monitor DVT px: will cont SCds. hold chemical for bx. will place on lovenox after Bx CT guided bx result pending For bone scan. RT plans pending results. will arrange for rehab for physical therapy
[2019-08-31] MEDS: LIDOCAINE PATCH REMOVAL MC SCH (22:33)
[2019-09-01] MEDS: DEXAMETHASONE 4 MG TABLET (FP) PO SCH ×3 (06:46→22:20)
[2019-09-01] MEDS: GABAPENTIN 300 MG CAPSULE PO SCH ×3 (06:46→22:20)
[2019-09-01] MEDS: INSULIN (LEVEMIR) 100 UNITS/ML UNITS SQ SCH (06:58)
[2019-09-01] MEDS: INSULIN SLIDING SCALE (NOVOLOG) 1 VIAL SQ SCH ×4 (06:59→22:23)
[2019-09-01 08:53] LABS: HEMATOCRIT 36.7 % (32.4-45.2); HEMOGLOBIN 12.4 GM/dL (10.7-15.3); MCH 28.8 pg (25.7-33.7); MCHC 33.7 g/dl (32.0-36.0); MEAN CELL VOLUME 85.4 fl (80-96); MEAN PLT VOLUME 7.6 fl (7.5-11.1); PLATELET COUNT 290 K/MM3 (134-434); RDW 14.3 % (11.6-15.6); WHITE BLOOD COUNT 15.7 K/mm3 (4.0-10.0)
[2019-09-01 09:13] LABS: ALBUMIN 2.6 g/dl (3.4-5.0); BILIRUBIN,TOTAL 0.4 mg/dL (0.2-1); BLOOD UREA NITROGEN 41.2 mg/dL (7-18); CALCIUM 8.2 mg/dL (8.5-10.1); CREATININE 0.8 mg/dL (0.55-1.3); MAGNESIUM 2.4 mg/dL (1.8-2.4); PHOSPHOROUS 4.8 mg/dL (2.5-4.9); POTASSIUM 3.7 mmol/L (3.5-5.1); TOT PROT 6.5 g/dl (6.4-8.2)
--- NOTE | 2019-09-01 09:27 | PN ---
Progress Note (short form) - Note Progress Note: NEUROSURGERY LBP and L leg pain better LE paresthesia and numbness better on current med regimen Able to lie on side CT guided bx path result pending PE: 100.6 tmax yesterday, AF today, VSS HEENT- NC/AT; Neck- supple; Cor- RRR; Lungs- CTA B; Abd- benign; Ext- no sign of DVT, L ankle callus/tenderness CN- intact; Motor- 5 B IP/Quad/TA/EHL/gastroc except L ankle and R IP 4 pain; Sensation- intact LT/vibration; DTR- 2+ except diminished B ankle reflexes WBC 15.7 c/w leukemoid reaction Bone scan c/w sacral tumor Breast CA met to sacrum vs new vertebral/sacral neoplasm Bowel regimen Increased decadron 4 mg po tid Increased neurontin to 300 mg tid For palliative RT as soon as path available To do that logistically pt would need to likely go home and get RT started Mobilize/PT D/w medical team
[2019-09-01] MEDS: LIDOCAINE 5% TOPICAL PATCH TP SCH (10:33)
[2019-09-01] MEDS: amLODIPine BESYLATE 5 MG TABLET (FP) PO SCH (10:33)
[2019-09-01] MEDS: PANTOPRAZOLE 20 MG TABLET PO SCH (10:33)
[2019-09-01] MEDS: ENOXAPARIN NA (PORCINE) 40 MG/0.4 ML DISP.SYRIN SQ SCH (10:33)
[2019-09-01] MEDS: LOSARTAN 50MG/HCTZ 12.5MG 1 TAB (FP) PO SCH (10:38)
--- NOTE | 2019-09-01 14:46 | PN ---
Teaching Attending Note Name of Resident: Raimundo Ruiz ATTENDING PHYSICIAN STATEMENT I saw and evaluated the patient. I reviewed the resident's note and discussed the case with the resident. I agree with the resident's findings and plan as documented. SUBJECTIVE: Patient is feeling better with no acute distress. Vital Signs Temperature 98.1 F 09/01/19 10:00 Pulse Rate 101 H 09/01/19 10:00 Respiratory Rate 20 09/01/19 10:00 Blood Pressure 135/72 09/01/19 10:00 O2 Sat by Pulse Oximetry (%) 94 L 09/01/19 09:00 GENERAL: The patient is awake, alert, and fully oriented, in no acute distress. HEAD: Normal with no signs of trauma. EYES: PERRL, extraocular movements intact, sclera anicteric, conjunctiva clear. ENT: Ears normal, oropharynx clear without exudates, moist mucous membranes. NECK: Trachea midline, full range of motion, supple. LUNGS: Breath sounds equal, clear to auscultation bilaterally, no wheezes, no crackles, no accessory muscle use. HEART: Regular rate and rhythm, S1, S2 without murmur, rub or gallop. ABDOMEN: Soft, nontender, nondistended, normoactive bowel sounds, no guarding, no rebound, no hepatosplenomegaly, no masses. EXTREMITIES: 2+ pulses, warm, well-perfused, no edema. good ROM L>R. NEUROLOGICAL: Cranial nerves II through XII grossly intact. Normal speech, gait not observed. PSYCH: Normal mood, normal affect. SKIN: Warm, dry, normal turgor, no rashes or lesions noted CBCD WBC 15.7 K/mm3 (4.0-10.0) H 09/01/19 08:00 RBC 4.30 M/mm3 (3.60-5.2) 09/01/19 08:00 Hgb 12.4 GM/dL (10.7-15.3) 09/01/19 08:00 Hct 36.7 % (32.4-45.2) 09/01/19 08:00 MCV 85.4 fl (80-96) 09/01/19 08:00 MCHC 33.7 g/dl (32.0-36.0) 09/01/19 08:00 RDW 14.3 % (11.6-15.6) 09/01/19 08:00 Plt Count 290 K/MM3 (134-434) D 09/01/19 08:00 MPV 7.6 fl (7.5-11.1) 09/01/19 08:00 CMP Sodium 139 mmol/L (136-145) 09/01/19 08:00 Potassium 3.7 mmol/L (3.5-5.1) 09/01/19 08:00 Chloride 102 mmol/L (98-107) 09/01/19 08:00 Carbon Dioxide 28 mmol/L (21-32) 09/01/19 08:00 Anion Gap 9 MMOL/L (8-16) 09/01/19 08:00 BUN 41.2 mg/dL (7-18) H 09/01/19 08:00 Creatinine 0.8 mg/dL (0.55-1.3) 09/01/19 08:00 Random Glucose 217 mg/dL (74-106) H 09/01/19 08:00 Calcium 8.2 mg/dL (8.5-10.1) L 09/01/19 08:00 Total Bilirubin 0.4 mg/dL (0.2-1) 09/01/19 08:00 AST 18 U/L (15-37) 09/01/19 08:00 ALT 66 U/L (13-61) H 09/01/19 08:00 Alkaline Phosphatase 77 U/L (45-117) 09/01/19 08:00 Total Protein 6.5 g/dl (6.4-8.2) 09/01/19 08:00 Albumin 2.6 g/dl (3.4-5.0) L 09/01/19 08:00 Home Medications Medication Instructions Recorded Calcium Carbonate/Vitamin D3 1 tab PO BID 08/23/19 [Calcium 600 + Vit D Tablet] Lactobacillus Acidophilus 1 each PO BID 08/23/19 [Acidophilus] Losartan/Hydrochlorothiazide 1 tab PO DAILY 08/23/19 [Losartan-Hctz 100-25 mg Tab] Metaxalone [Skelaxin] 800 mg PO Q8H PRN 08/23/19 Metformin HCl [Glucophage] 1,000 mg PO BID 08/23/19 Metoprolol Succinate 100 mg PO DAILY 08/23/19 Naproxen 500 mg PO Q12H PRN 08/23/19 Prednisone 10 mg PO Q12H 08/23/19 Tramadol HCl 50 mg PO Q6H PRN 08/23/19 Amlodipine Besylate [Norvasc -] 5 mg PO DAILY 08/24/19 Current Medications Generic Name Dose Route Start Last Admin Trade Name Freq PRN Reason Stop Dose Admin Acetaminophen 650 mg 08/31/19 16:32 Tylenol - PO Q6H PRN FEVER Amlodipine Besylate 5 mg 08/29/19 10:00 09/01/19 10:33 Norvasc - PO 5 mg DAILY SEBASTIÁN Administration Dexamethasone 4 mg 08/31/19 14:00 09/01/19 06:46 Decadron - PO 4 mg TID SEBASTIÁN Administration Docusate Sodium 100 mg 08/28/19 17:29 Colace - PO BID PRN CONSTIPATION Enoxaparin Sodium 40 mg 08/29/19 13:30 09/01/19 10:33 Lovenox - SQ 40 mg DAILY SEBASTIÁN Administration Gabapentin 300 mg 08/31/19 14:00 09/01/19 06:46 Neurontin - PO 300 mg TID SEBASTIÁN Administration HCTZ/Losartan Potassium 2 tab 08/24/19 10:00 09/01/19 10:38 Hyzaar - PO 2 tab DAILY SEBASTIÁN Administration Insulin Aspart 1 vial 08/25/19 22:00 09/01/19 12:13 Novolog Vial Sliding Scale - SQ 8 units ACHS SEBASTIÁN Administration Protocol Insulin Detemir 6 units 08/31/19 07:00 09/01/19 06:58 Levemir Vial SQ 6 units AM SEBASTIÁN Administration Lidocaine 1 patch 08/25/19 11:15 09/01/19 10:33 Lidoderm Patch - TP 1 patch DAILY SEBASTIÁN Administration Metoprolol Succinate 100 mg 08/24/19 10:00 09/01/19 10:33 Toprol Xl - PO 100 mg DAILY SEBASTIÁN Administration Miscellaneous 1 each 08/25/19 22:00 08/31/19 22:33 Lidoderm Patch Removal MC 1 each DAILY@2200 SEBASTIÁN Administration Oxycodone HCl 5 mg 08/29/19 10:39 08/29/19 21:49 Roxicodone - PO 5 mg Q8H PRN Administration PAIN LEVEL 6-10 Pantoprazole Sodium 20 mg 08/25/19 12:15 09/01/19 10:33 Protonix - PO 20 mg DAILY SEBASTIÁN Administration Home Medications Medication Instructions Recorded Calcium Carbonate/Vitamin D3 1 tab PO BID 08/23/19 [Calcium 600 + Vit D Tablet] Lactobacillus Acidophilus 1 each PO BID 08/23/19 [Acidophilus] Metformin HCl [Glucophage] 1,000 mg PO BIDAC 08/23/19 Metoprolol Succinate 100 mg PO DAILY 08/23/19 Tramadol HCl 50 mg PO Q6H PRN 08/23/19 Amlodipine Besylate [Norvasc -] 5 mg PO DAILY 08/24/19 Dexamethasone [Decadron -] 4 mg PO TID #90 tablet 09/01/19 Gabapentin [Neurontin -] 300 mg PO TID #90 capsule 09/01/19 Lidocaine 5% Patch [Lidoderm -] 1 patch TP DAILY #30 patch 09/01/19 Losartan/Hydrochlorothiazide 1 tab PO DAILY 09/01/19 [Losartan-Hctz 100-25 mg Tab] Pantoprazole Sodium [Protonix -] 20 mg PO DAILY #30 tablet.ec 09/01/19 CT and MRI LS spine - L3-4 spondylolisthesis, L4-5 and L5-S1 DDD; lytic/ expansile lesion S1 and S2 with posterior cortex bowing and anterior thecal sac impingement; B S1 root impingement; Axial images only down to about S1; R iliac bone involvement CT C/A/P: shows sub cm pulmonary nodules, thyroid nodules, kidney cysts (vs mass) as well as sacral mass. 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 s/p CT guided Bx result still pending, cont decadron , lidocaine and neurontin ; pain is improving. plan on palliative radiation , waiting for bx results . discussed with Dr.Tom John , patient should go home with follow up visit with neurosurgery and Rtx oncologist . will dc her on decadron and gabapentin , patient is going to stay at her daughter's house. # CT Abd /pelvis /chest reviewed. lung nodules and renal complex cyst/? mass . patient was informed of results , bone scan per ONc Records obtained. Her original breast tumor was ER, VT positive . records were left in chart # Leukocytosis: due to steroids .will continue to monitor # T2DM :dc home, continue metformin, has been on steroids x 2 weeks as out pt. avoid abrupt cessation. # HTN elevated : cont home meds Losartan and metoprolol, will monitor DVT px: will cont SCds. hold chemical for bx. will place on lovenox after Bx CT guided bx result pending, will follow up with Dr. Doe John For bone scan. RT plans pending results. VNS for physical therapy
[2019-09-01 14:57] VITALS: BMI 23.7
--- NOTE | 2019-09-01 15:16 | DS ---
Physical Exam: SUBJECTIVE: Patient seen and examined OBJECTIVE: Vital Signs Period Temp Pulse Resp BP Sys/Mendes Pulse Ox Last 24 Hr 97.6 F-98.5 F 76-101 20-20 95-140/46-72 94-94 PHYSICAL EXAM GENERAL: The patient is awake, alert, and fully oriented, in no acute distress. HEAD: NC/AT, no temporal wasting EYES: PERRL, extraocular movements intact, sclera anicteric, pale conjunctiva. No ptosis. ENT: Ears normal, nares patent, oropharynx clear without exudates, moist mucous membranes. NECK: Trachea midline, full range of motion, supple. LUNGS: Breath sounds equal, clear to auscultation bilaterally, no wheezes, no crackles, no accessory muscle use. Breathing room air HEART: Regular rate and rhythm, S1, S2 without murmur, rub or gallop. ABDOMEN: Soft, nontender, nondistended, normoactive bowel sounds, no guarding, no rebound. EXTREMITIES: 2+ pulses, warm, well-perfused, no edema. NEUROLOGICAL: Cranial nerves II through XII grossly intact. Normal speech. Painful AROM of LLE knee flexion, hip flexion. Sensation grossly intact in BLE. TTP of lower midline L-spine. Grossly swollen Left ankle w/o point tenderness PSYCH: Normal mood, normal affect. SKIN: Warm, dry, normal turgor, no rashes or lesions noted LABS Laboratory Results - last 24 hr 08/31/19 08/31/19 08/31/19 16:53 21:50 22:16 WBC RBC Hgb Hct MCV MCH MCHC RDW Plt Count MPV Sodium Potassium Chloride Carbon Dioxide Anion Gap BUN Creatinine Est GFR (CKD-EPI)AfAm Est GFR (CKD-EPI)NonAf POC Glucometer 222 223 252 Random Glucose Calcium Phosphorus Magnesium Total Bilirubin AST ALT Alkaline Phosphatase Total Protein Albumin 09/01/19 09/01/19 09/01/19 06:56 08:00 08:00 WBC 15.7 H RBC 4.30 Hgb 12.4 Hct 36.7 MCV 85.4 MCH 28.8 MCHC 33.7 RDW 14.3 Plt Count 290 D MPV 7.6 Sodium 139 Potassium 3.7 Chloride 102 Carbon Dioxide 28 Anion Gap 9 BUN 41.2 H Creatinine 0.8 Est GFR (CKD-EPI)AfAm 79.57 Est GFR (CKD-EPI)NonAf 68.66 POC Glucometer 250 Random Glucose 217 H Calcium 8.2 L Phosphorus 4.8 Magnesium 2.4 Total Bilirubin 0.4 AST 18 ALT 66 H Alkaline Phosphatase 77 Total Protein 6.5 Albumin 2.6 L 09/01/19 12:13 WBC RBC Hgb Hct MCV MCH MCHC RDW Plt Count MPV Sodium Potassium Chloride Carbon Dioxide Anion Gap BUN Creatinine Est GFR (CKD-EPI)AfAm Est GFR (CKD-EPI)NonAf POC Glucometer 327 Random Glucose Calcium Phosphorus Magnesium Total Bilirubin AST ALT Alkaline Phosphatase Total Protein Albumin HOSPITAL COURSE: Date of Admission:08/24/19 Date of Discharge: 09/01/19 84F w/ pmh of HTN, NIDDM, Left ankle fracture(2019), 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 CT imaging suggesting anterolithesis of L-spine. 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 Neurosurgery(Adwoa) recommended surgical intervention w/ biopsy and debulking. 2nd opinion by Neurosurgery(Alvaro) recommended CT-guided bx, MedOnc, RadOnc, look for occult malignancy w/ CT chest /abd/pelv + Nuclear Bone Scan. S/P CT-guided bx(08/27/19). Bone Scan(08/28/19) showing uptake in sacrum(L>R), mild uptake in L5 vert body, mod uptake in Left ankle. Decadron changed from IV to PO(4mg TID). Gabapentin increased to 300mg TID. 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 Pathologist said that she will likely need to send out for a second opinion. Minutes to complete discharge: 35 Discharge Summary Problems reviewed: Yes Reason For Visit: INTRACTABLE BACK PAIN,UNABLE TO WALK Current Active Problems Lumbar disc herniation with radiculopathy (Acute) Muscle spasm (Acute) Sacral mass (Acute) Breast cancer (Chronic) Condition: Stable - Instructions Diet, Activity, Other Instructions: You were evaluated in the hospital for severe lower back pain with trouble walking. Imaging showed that you have a mass in the sacrum that involves nerve structures. You received a bone biopsy. You were started on steroids and medicine to help with your back pain. You were deemed stable for discharge. MEDICATIONS: - Dexamethasone[DECADRON] 4mg, three times daily - Gabapentin[NEURONTIN] 300mg, three times daily - Pantroprazole[PROTONIX] 20mg, once daily - Lidocaine Patch[LIDODERM] 1 patch, apply to lower back for 12 hours, (8am on- 8pm OFF) then leave off for 12 hours before applying another patch - STOP taking your previously prescribed Prednisone - RESUME other home medications are previously prescribed Make sure to drink plenty of water and remain hydrated. at least 2 liter of water. Additional Instructions: - Diet: adhere to a low-sugar diet - Activity: as much activity as you can tolerate. Continue with home physical therapy. Please follow up with the physicians below: - Primary Care Physician: to discuss your recent hospitalization - Neurosurgery(Rich John): to discuss your sacral mass, and Bx result - Radiation Oncologist(Lonny Laughlin): to discuss radiation as possible therapy for your sacral mass - Medical Oncologist(Beatrice Díaz): to discuss your sacral mass Please seek immediate medical attention if you experience: - severe, worsening lower back pain or leg pain - inability to control your bowel movements or urination - worsening numbness or loss of sensation to the legs Referrals: Lonny Laughlin MD [Staff Physician] - 1 Week Rich John MD [Staff Physician] - 1 Week Beatrice Díaz MD [Staff Physician] - Carlos Metz [Primary Care Provider] - 1 Week Disposition: HOME - Home Medications Comprehensive Discharge Medication List: Ambulatory Orders Calcium Carbonate/Vitamin D3 [Calcium 600 + Vit D Tablet] 1 tab PO BID 08/23/19 Lactobacillus Acidophilus [Acidophilus] 1 each PO BID 08/23/19 Metformin HCl [Glucophage] 1,000 mg PO BIDAC 08/23/19 Metoprolol Succinate 100 mg PO DAILY 08/23/19 Amlodipine Besylate [Norvasc -] 5 mg PO DAILY 08/24/19 Dexamethasone [Decadron -] 4 mg PO TID #90 tablet 09/01/19 Docusate Sodium [Colace -] 100 mg PO BID PRN capsule 09/01/19 Gabapentin [Neurontin -] 300 mg PO TID #90 capsule 09/01/19 Lidocaine 5% Patch [Lidoderm -] 1 patch TP DAILY #30 patch 09/01/19 Lidocaine Patch Removal [Lidoderm Patch Removal] 1 each MC DAILY@2200 each 10/16 Losartan/Hydrochlorothiazide [Losartan-Hctz 100-25 mg Tab] 1 tab PO DAILY Pantoprazole Sodium [Protonix -] 20 mg PO DAILY #30 tablet.ec 09/01/19 This patient is new to me today: No Emergency Visit: No Critical Care patient: No - Discharge Referral Referred to [facility] No ATTENDING PHYSICIAN STATEMENT I saw and evaluated the patient. I reviewed the resident's note and discussed the case with the resident. I agree with the resident's findings and plan as documented. SUBJECTIVE: OBJECTIVE: ASSESSMENT AND PLAN:
--- NOTE | 2019-09-01 18:55 | PN ---
Progress Note (short form) - Note Progress Note: Patient seen and examined PAin better controlled Last Vital Signs Temp Pulse Resp BP Pulse Ox 97.8 F 73 20 116/57 L 94 L 09/01/19 16:30 09/01/19 16:30 09/01/19 16:30 09/01/19 16:30 09/01/19 09:00 Cor: RSR, No murmurs, No gallops Lungs: Clear to P&A Abd: Soft, Normal bowel sounds, No organomegaly Ext:No significant edema Skin: No rashes, Integument intact Abnormal Lab Results 09/01/19 09/01/19 08:00 08:00 WBC 15.7 H BUN 41.2 H Random Glucose 217 H Calcium 8.2 L ALT 66 H Albumin 2.6 L Active Medications Generic Name Dose Route Start Last Admin Trade Name Freq PRN Reason Stop Dose Admin Acetaminophen 650 mg 08/31/19 16:32 Tylenol - PO Q6H PRN FEVER Amlodipine Besylate 5 mg 08/29/19 10:00 09/01/19 10:33 Norvasc - PO 5 mg DAILY SEBASTIÁN Administration Dexamethasone 4 mg 08/31/19 14:00 09/01/19 14:54 Decadron - PO 4 mg TID SEBASTIÁN Administration Docusate Sodium 100 mg 08/28/19 17:29 Colace - PO BID PRN CONSTIPATION Enoxaparin Sodium 40 mg 08/29/19 13:30 09/01/19 10:33 Lovenox - SQ 40 mg DAILY SEBASTIÁN Administration Gabapentin 300 mg 08/31/19 14:00 09/01/19 14:54 Neurontin - PO 300 mg TID SEBASTIÁN Administration HCTZ/Losartan Potassium 2 tab 08/24/19 10:00 09/01/19 10:38 Hyzaar - PO 2 tab DAILY SEBASTIÁN Administration Insulin Aspart 1 vial 08/25/19 22:00 09/01/19 16:57 Novolog Vial Sliding Scale - SQ 6 units ACHS SEBASTIÁN Administration Protocol Insulin Detemir 6 units 08/31/19 07:00 09/01/19 06:58 Levemir Vial SQ 6 units AM SEBASTIÁN Administration Lidocaine 1 patch 08/25/19 11:15 09/01/19 10:33 Lidoderm Patch - TP 1 patch DAILY SEBASTIÁN Administration Metoprolol Succinate 100 mg 08/24/19 10:00 09/01/19 10:33 Toprol Xl - PO 100 mg DAILY SEBASTIÁN Administration Miscellaneous 1 each 08/25/19 22:00 08/31/19 22:33 Lidoderm Patch Removal MC 1 each DAILY@2200 SEBASTIÁN Administration Oxycodone HCl 5 mg 08/29/19 10:39 08/29/19 21:49 Roxicodone - PO 5 mg Q8H PRN Administration PAIN LEVEL 6-10 Pantoprazole Sodium 20 mg 08/25/19 12:15 09/01/19 10:33 Protonix - PO 20 mg DAILY SEBASTIÁN Administration A/P 84y/o female with HTN, DM, and left breast s/p lumpectomy 5 years ago, RT and tamoxifen 2 and anastrozole x 3yrs. who presents with sudden onset back pain [address] L spine --osteolytic lesion s1s2, posterior cortical destruction, epidural component extending into spinal canal, neural foramina, thecal sac compression MRI --posterior paraspinal muscles with edema L3-S1. S1, S2 malignancy with encasement of bilateral S1, S2 nerve roots Rt. iliac bone lesion CT c/a/p -- subpleural nodules, sacral lesion, cyst vs mass midportionof left kidney, indeterminate hepatic lobe lesion Bone scan --sacral uptake On dex 4mg tid/ protonix PEr pathology ---preliminarily carcinoma, non breast origin. W/U with immunostains pending Discussed with patient --- will need very close follow up with rad-onc/ eurosurgery
[2019-09-01] MEDS: oxyCODONE HCL 5 MG TABLET PO PRN (22:27)
[2019-09-01] MEDS: LIDOCAINE PATCH REMOVAL MC SCH (23:03)
[2019-09-02] MEDS: INSULIN (LEVEMIR) 100 UNITS/ML UNITS SQ SCH (06:40)
[2019-09-02] MEDS: INSULIN SLIDING SCALE (NOVOLOG) 1 VIAL SQ SCH ×3 (06:42→16:42)
[2019-09-02] MEDS: DEXAMETHASONE 4 MG TABLET (FP) PO SCH ×2 (06:44→14:17)
[2019-09-02] MEDS: GABAPENTIN 300 MG CAPSULE PO SCH ×2 (06:44→14:17)
[2019-09-02] MEDS: PANTOPRAZOLE 20 MG TABLET PO SCH (09:53)
[2019-09-02] MEDS: amLODIPine BESYLATE 5 MG TABLET (FP) PO SCH (09:53)
[2019-09-02] MEDS: ENOXAPARIN NA (PORCINE) 40 MG/0.4 ML DISP.SYRIN SQ SCH (09:53)
[2019-09-02] MEDS: LIDOCAINE 5% TOPICAL PATCH TP SCH (09:54)
[2019-09-02] MEDS: LOSARTAN 50MG/HCTZ 12.5MG 1 TAB (FP) PO SCH (11:00)
[2019-09-02] MEDS: metFORMIN HCL 500 MG TABLET (FP) PO SCH ×2 (12:27→16:41)
--- NOTE | 2019-09-02 13:12 | PN ---
Progress Note (short form) - Note Progress Note: Radiation Oncology Pain controlled. Ambulating. Son in law at bedside. Sacral biopsy - spoke to pathology -prelim CD20+ lymphoproliferative malignancy. CT CAP shows sub cm pulmonary nodules, thyroid nodules, kidney cysts (vs mass) as well as sacral mass. Bone scan uptake L5 and sacrum. We discussed moving ahead with palliative RT. CT simulation appt tomorrow morning. Cont analgesics, neurologic monitoring. Follow up final path. D/C planning.
--- NOTE | 2019-09-02 15:13 | PN ---
Progress Note (short form) - Note Progress Note: Patient seen and son-in-law and D-I-L in attendance. Overall review- Sacral lesion- hematologic malignancy - needs further clarification - immunologic stains and heme path evaluation Bone sca- light up in sacrum and in L5 to lesser extent CT- thyroid nodules. lung subcm nodules, kidney cysts, complex cyst vs. mass kidney, fatty liver, blastic sacral mets Suggest : RT- Dr. Laughlin Follow up kidney cysts--?? mass Follow up Path Will likely need PET Will follow up with Dr. Fortune at [facility] - patients oncologist F/U lung and thyroid nodules
[2019-09-02] MEDS ORDERED: INSULIN (NOVOLOG) ASPART 100 UNITS/ML 10ML VIAL SQ ONE (15:17)
[2019-09-02] MEDS ORDERED: Insulin (LOG) Aspart 100 UNITS/ML VIAL SQ ONE (15:17)
--- NOTE | 2019-09-02 17:04 | PN ---
Teaching Attending Note Name of Resident: Raimundo Ruiz ATTENDING PHYSICIAN STATEMENT I saw and evaluated the patient. I reviewed the resident's note and discussed the case with the resident. I agree with the resident's findings and plan as documented. SUBJECTIVE: Patient is comfortable with no acute distress. Vital Signs Temperature 97.9 F 09/02/19 14:00 Pulse Rate 78 09/02/19 14:00 Respiratory Rate 20 09/02/19 14:00 Blood Pressure 122/59 L 09/02/19 14:00 O2 Sat by Pulse Oximetry (%) 95 09/01/19 20:17 GENERAL: The patient is awake, alert, and fully oriented, in no acute distress. HEAD: Normal with no signs of trauma. EYES: PERRL, extraocular movements intact, sclera anicteric, conjunctiva clear. ENT: Ears normal, oropharynx clear without exudates, moist mucous membranes. NECK: Trachea midline, full range of motion, supple. LUNGS: Breath sounds equal, clear to auscultation bilaterally, no wheezes, no crackles, no accessory muscle use. HEART: Regular rate and rhythm, S1, S2 without murmur, rub or gallop. ABDOMEN: Soft, nontender, nondistended, normoactive bowel sounds, no guarding, no rebound, no hepatosplenomegaly, no masses. EXTREMITIES: 2+ pulses, warm, well-perfused, no edema. good ROM L>R. NEUROLOGICAL: Cranial nerves II through XII grossly intact. Normal speech, gait not observed. PSYCH: Normal mood, normal affect. SKIN: Warm, dry, normal turgor, no rashes or lesions noted CBCD WBC 15.7 K/mm3 (4.0-10.0) H 09/01/19 08:00 RBC 4.30 M/mm3 (3.60-5.2) 09/01/19 08:00 Hgb 12.4 GM/dL (10.7-15.3) 09/01/19 08:00 Hct 36.7 % (32.4-45.2) 09/01/19 08:00 MCV 85.4 fl (80-96) 09/01/19 08:00 MCHC 33.7 g/dl (32.0-36.0) 09/01/19 08:00 RDW 14.3 % (11.6-15.6) 09/01/19 08:00 Plt Count 290 K/MM3 (134-434) D 09/01/19 08:00 MPV 7.6 fl (7.5-11.1) 09/01/19 08:00 CMP Sodium 139 mmol/L (136-145) 09/01/19 08:00 Potassium 3.7 mmol/L (3.5-5.1) 09/01/19 08:00 Chloride 102 mmol/L (98-107) 09/01/19 08:00 Carbon Dioxide 28 mmol/L (21-32) 09/01/19 08:00 Anion Gap 9 MMOL/L (8-16) 09/01/19 08:00 BUN 41.2 mg/dL (7-18) H 09/01/19 08:00 Creatinine 0.8 mg/dL (0.55-1.3) 09/01/19 08:00 Random Glucose 217 mg/dL (74-106) H 09/01/19 08:00 Calcium 8.2 mg/dL (8.5-10.1) L 09/01/19 08:00 Total Bilirubin 0.4 mg/dL (0.2-1) 09/01/19 08:00 AST 18 U/L (15-37) 09/01/19 08:00 ALT 66 U/L (13-61) H 09/01/19 08:00 Alkaline Phosphatase 77 U/L (45-117) 09/01/19 08:00 Total Protein 6.5 g/dl (6.4-8.2) 09/01/19 08:00 Albumin 2.6 g/dl (3.4-5.0) L 09/01/19 08:00 Current Medications Generic Name Dose Route Start Last Admin Trade Name Freq PRN Reason Stop Dose Admin Acetaminophen 650 mg 08/31/19 16:32 Tylenol - PO Q6H PRN FEVER Amlodipine Besylate 5 mg 08/29/19 10:00 09/02/19 09:53 Norvasc - PO 5 mg DAILY SEBASTIÁN Administration Dexamethasone 4 mg 08/31/19 14:00 09/02/19 14:17 Decadron - PO 4 mg TID SEBASTIÁN Administration Docusate Sodium 100 mg 08/28/19 17:29 Colace - PO BID PRN CONSTIPATION Enoxaparin Sodium 40 mg 08/29/19 13:30 09/02/19 09:53 Lovenox - SQ 40 mg DAILY SEBASTIÁN Administration Gabapentin 300 mg 08/31/19 14:00 09/02/19 14:17 Neurontin - PO 300 mg TID SEBASTIÁN Administration HCTZ/Losartan Potassium 2 tab 08/24/19 10:00 09/02/19 11:00 Hyzaar - PO 2 tab DAILY SEBASTIÁN Administration Insulin Aspart 1 vial 08/25/19 22:00 09/02/19 16:42 Novolog Vial Sliding Scale - SQ 4 units ACHS SEBASTIÁN Administration Protocol Insulin Detemir 6 units 08/31/19 07:00 09/02/19 06:40 Levemir Vial SQ 6 units AM SEBASTIÁN Administration Lidocaine 1 patch 08/25/19 11:15 09/02/19 09:54 Lidoderm Patch - TP 1 patch DAILY SEBASTIÁN Administration Metformin HCl 1,000 mg 09/02/19 12:15 09/02/19 16:41 Glucophage - PO 1,000 mg BIDAC [facility] Administration Metoprolol Succinate 100 mg 08/24/19 10:00 09/02/19 09:53 Toprol Xl - PO 100 mg DAILY SEBASTIÁN Administration Miscellaneous 1 each 08/25/19 22:00 09/01/19 23:03 Lidoderm Patch Removal MC Not Given DAILY@2200 [facility] Oxycodone HCl 5 mg 08/29/19 10:39 09/01/19 22:27 Roxicodone - PO 5 mg Q8H PRN Administration PAIN LEVEL 6-10 Pantoprazole Sodium 20 mg 08/25/19 12:15 09/02/19 09:53 Protonix - PO 20 mg DAILY SEBASTIÁN Administration Home Medications Medication Instructions Recorded Calcium Carbonate/Vitamin D3 1 tab PO BID 08/23/19 [Calcium 600 + Vit D Tablet] Lactobacillus Acidophilus 1 each PO BID 08/23/19 [Acidophilus] Metoprolol Succinate 100 mg PO DAILY 08/23/19 Amlodipine Besylate [Norvasc -] 5 mg PO DAILY 08/24/19 Alcohol Antiseptic Pads [Alcohol 1 each TP PRN #30 med..pad 09/01/19 Prep Pad] Dexamethasone [Decadron -] 4 mg PO TID #90 tablet 09/01/19 Gabapentin [Neurontin -] 300 mg PO TID #90 capsule 09/01/19 Lancets 1 each MC PRN #30 each 09/01/19 Lidocaine 5% Patch [Lidoderm -] 1 patch TP DAILY #30 patch 09/01/19 Lidocaine Patch Removal [Lidoderm 1 each MC DAILY@2200 each 09/01/19 Patch Removal] Losartan/Hydrochlorothiazide 1 tab PO DAILY 09/01/19 [Losartan-Hctz 100-25 mg Tab] Miscellaneous Medical Supply 1 each .ROUTE ASDIR #1 kit 09/01/19 [Glucometer Device] Miscellaneous Medical Supply 1 each .ROUTE ASDIR #1 box 09/01/19 [Glucometer Test Strips #50] Miscellaneous Medical Supply 1 each MC ASDIR #1 misc 09/01/19 [Outpatient Order] Pantoprazole Sodium [Protonix -] 20 mg PO DAILY #30 tablet.ec 09/01/19 Pen Needle, Diabetic [[place]] 1 each PRN #30 dis.needle 09/01/19 Docusate Sodium [Colace -] 100 mg PO BID 30 Days #60 capsule 09/02/19 Insulin Detemir [Levemir Flextouch] 10 unit SQ DAILY 14 Days #2 09/02/19 insuln.pen Insulin NPH Hum/Reg Insulin Hm See Protocol SQ AC #2 insuln.pen 09/02/19 [Novolin 70-30 Flexpen] Metformin HCl [Glucophage] 1,000 mg PO BIDAC #120 tablet 09/02/19 CT and MRI LS spine - L3-4 spondylolisthesis, L4-5 and L5-S1 DDD; lytic/ expansile lesion S1 and S2 with posterior cortex bowing and anterior thecal sac impingement; B S1 root impingement; Axial images only down to about S1; R iliac bone involvement CT C/A/P: shows sub cm pulmonary nodules, thyroid nodules, kidney cysts (vs mass) as well as sacral mass. 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 s/p CT guided Bx result still pending, cont decadron , lidocaine and neurontin ; pain is improving. plan on palliative radiation , waiting for bx results . discussed with Dr.Tom John , patient should go home with follow up visit with neurosurgery and Rtx oncologist . will dc her on decadron and gabapentin , patient is going to stay at her daughter's house. # CT Abd /pelvis /chest reviewed. lung nodules and renal complex cyst/? mass . patient was informed of results , bone scan per ONc Records obtained. Her original breast tumor was ER, DC positive . records were left in chart # Leukocytosis: due to steroids .will continue to monitor # T2DM :dc home, continue metformin, has been on steroids x 2 weeks as out pt. avoid abrupt cessation. # HTN elevated : cont home meds Losartan and metoprolol, will monitor DVT px: will cont SCds. hold chemical for bx. will place on lovenox after Bx CT guided bx Follow up final path. with Dr. Doe John RT Txs per RTx onc for palliative RT. 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 CT CAP shows sub cm pulmonary nodules, thyroid nodules, kidney cysts (vs mass) as well as sacral mass. Bone scan uptake L5 and sacrum. D/C patient home ordered hospital bed bedside commode glucometer
[2019-09-02 17:33] VITALS: BP 121/57; PULSE 72; TEMP 97.8
--- NOTE | 2019-09-02 17:50 | DS ---
Physical Exam: SUBJECTIVE: Patient seen and examined OBJECTIVE: Vital Signs Period Temp Pulse Resp BP Sys/Mendes Pulse Ox Last 24 Hr 97.6 F-98.4 F 69-111 20-20 121-148/57-73 95 PHYSICAL EXAM GENERAL: The patient is awake, alert, and fully oriented, in no acute distress. HEAD: NC/AT, no temporal wasting EYES: PERRL, extraocular movements intact, sclera anicteric, pale conjunctiva. No ptosis. ENT: Ears normal, nares patent, oropharynx clear without exudates, moist mucous membranes. NECK: Trachea midline, full range of motion, supple. LUNGS: Breath sounds equal, clear to auscultation bilaterally, no wheezes, no crackles, no accessory muscle use. Breathing room air HEART: Regular rate and rhythm, S1, S2 without murmur, rub or gallop. ABDOMEN: Soft, nontender, nondistended, normoactive bowel sounds, no guarding, no rebound. EXTREMITIES: 2+ pulses, warm, well-perfused, no edema. NEUROLOGICAL: Cranial nerves II through XII grossly intact. Normal speech. Mild panful AROM of lower back upon sitting upright or laying down. Sensation grossly intact in BLE. TTP of lower midline L-spine. Grossly swollen Left ankle w/o point tenderness PSYCH: Normal mood, normal affect. 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 CT imaging suggesting anterolithesis of L-spine. 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 Neurosurgery(Adwoa) recommended surgical intervention w/ biopsy and debulking. 2nd opinion by Neurosurgery(Alvaro) recommended CT-guided bx, MedOnc, RadOnc, look for occult malignancy w/ CT chest /abd/pelv + Nuclear Bone Scan. S/P CT-guided bx(08/27/19). Bone Scan(08/28/19) showing uptake in sacrum(L>R), mild uptake in L5 vert body, mod uptake in Left ankle. Decadron changed from IV to PO(4mg TID). Gabapentin increased to 300mg TID. Home insulin(levemir 10U + ISS) to be added to Metformin. Path results still pending but preliminary interpretation suggestive of new primary(neg for breast, neg for kidney), possible sarcoma. Pathologist said that she will likely need to send out for a second opinion. Patient dishcharged on 09/01/19, but patient stayed until 09/02/19 dt setting up home needs(hospital bed). Minutes to complete discharge: 32 Discharge Summary Problems reviewed: Yes Reason For Visit: INTRACTABLE BACK PAIN,UNABLE TO WALK Current Active Problems Lumbar disc herniation with radiculopathy (Acute) Muscle spasm (Acute) Sacral mass (Acute) Breast cancer (Chronic) Condition: Stable - Instructions Diet, Activity, Other Instructions: You were evaluated in the hospital for severe lower back pain with trouble walking. Imaging showed that you have a mass in the sacrum that involves nerve structures. You received a bone biopsy. You were started on steroids and medicine to help with your back pain. You were deemed stable for discharge. MEDICATIONS: - Insulin Detemir[LEVEMIR] 6U, once daily, in the morning --this will be your Long-acting Insulin - Insulin Aspart[NOVOLOG] Sliding Scale, to be administered prior to meals. --please check your fingerstick blood sugar prior to your meals. Please maintain a blood sugar journal. --the dosage of Aspart[NOVOLOG] will be depend on the blood sugar level. If your blood sugar is: --between 150 - 200, then administer Aspart[NOVOLG] 2 Units --between 200 - 250, then administer Aspart[NOVOLG] 4 Units --between 250 - 300, then administer Aspart[NOVOLG] 6 Units --between 300 - 350, then administer Aspart[NOVOLG] 8 Units --between 350 - 400, then administer Aspart[NOVOLG] 10 Units, please contact your provider - Dexamethasone[DECADRON] 4mg, three times daily - Gabapentin[NEURONTIN] 300mg, three times daily - Pantroprazole[PROTONIX] 20mg, once daily - Lidocaine Patch[LIDODERM] 1 patch, apply to lower back for 12 hours, (8am on- 8pm OFF) then leave off for 12 hours before applying another patch - STOP taking your previously prescribed Prednisone - RESUME other home medications are previously prescribed Make sure to drink plenty of water and remain hydrated. at least 2 liter of water. Additional Instructions: - Diet: adhere to a low-sugar diet - Activity: as much activity as you can tolerate. Continue with home physical therapy. Please follow up with the physicians below: - Primary Care Physician: to discuss your recent hospitalization - Neurosurgery(Rich John): to discuss your sacral mass, and Bx result - Radiation Oncologist(Lonny Laughlin): to discuss radiation as possible therapy for your sacral mass - Medical Oncologist Dr. Willie Fortune: to discuss your sacral mass Please seek immediate medical attention if you experience: - severe, worsening lower back pain or leg pain - inability to control your bowel movements or urination - worsening numbness or loss of sensation to the legs Referrals: Lonny Laughlin MD [Staff Physician] - 1 Week Rich John MD [Staff Physician] - 1 Week Beatrice Díaz MD [Staff Physician] - Carlos Metz [Primary Care Provider] - 1 Week Willie Fortune [Non Staff, Medical] - Disposition: HOME - Home Medications Comprehensive Discharge Medication List: Ambulatory Orders Calcium Carbonate/Vitamin D3 [Calcium 600 + Vit D Tablet] 1 tab PO BID 08/23/19 Lactobacillus Acidophilus [Acidophilus] 1 each PO BID 08/23/19 Metoprolol Succinate 100 mg PO DAILY 08/23/19 Amlodipine Besylate [Norvasc -] 5 mg PO DAILY 08/24/19 Alcohol Antiseptic Pads [Alcohol Prep Pad] 1 each TP PRN #30 med..pad 09/01/19 Dexamethasone [Decadron -] 4 mg PO TID #90 tablet 09/01/19 Gabapentin [Neurontin -] 300 mg PO TID #90 capsule 09/01/19 Lancets 1 each MC PRN #30 each 09/01/19 Lidocaine 5% Patch [Lidoderm -] 1 patch TP DAILY #30 patch 09/01/19 Lidocaine Patch Removal [Lidoderm Patch Removal] 1 each MC DAILY@2200 each 10/16 Losartan/Hydrochlorothiazide [Losartan-Hctz 100-25 mg Tab] 1 tab PO DAILY Miscellaneous Medical Supply [Glucometer Device] 1 each .ROUTE ASDIR #1 kit 10/16 Miscellaneous Medical Supply [Glucometer Test Strips #50] 1 each .ROUTE ASDIR # 1 box 09/01/19 Miscellaneous Medical Supply [Outpatient Order] 1 each ASDIR #1 misc Pantoprazole Sodium [Protonix -] 20 mg PO DAILY #30 tablet.ec 09/01/19 Pen Needle, Diabetic [[place]] 1 each PRN #30 dis.needle 09/01/19 Docusate Sodium [Colace -] 100 mg PO BID 30 Days #60 capsule 09/02/19 Insulin Detemir [Levemir Flextouch] 10 unit SQ DAILY 14 Days #2 insuln.pen 09/02 Insulin NPH Hum/Reg Insulin Hm [Novolin 70-30 Flexpen] See Protocol SQ AC #2 insuln.pen 09/02/19 Metformin HCl [Glucophage] 1,000 mg PO BIDAC #120 tablet 09/02/19 This patient is new to me today: No Emergency Visit: No Critical Care patient: No - Discharge Referral Referred to [facility] Med P.C.: No ATTENDING PHYSICIAN STATEMENT I saw and evaluated the patient. I reviewed the resident's note and discussed the case with the resident. I agree with the resident's findings and plan as documented. SUBJECTIVE: OBJECTIVE: ASSESSMENT AND PLAN:
--- NOTE | 2019-09-08 16:07 | PATH ---
Surgical Pathology Report Patient Name: JOSE LUIS CROCKER [facility]. Rec. #: [id number] /Age/Gender: 1935 (Age: 84) / F Account: [id number] Location: [facility] MED/SURG Taken: 08/27/2019 Received: 08/27/2019 Reported: 09/08/2019 Physicians: Geovany Smiley M.D. Smitha Mellacheruvu, M.D. Specimen(s) Received SACRAL BONE BIOPSY Clinical History 84-year-old female with history of breast cancer now with large lytic sacral bone lesion Final Diagnosis Surgical Pathology Report performed and interpreted at [facility] ([id number]) shows the following: SACRAL BONE, BIOPSY: - CONSISTENT WITH PLASMACYTOMA. 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 A bone marrow biopsy is suggested to rule out a plasma cell myeloma involving sacral bone. Note: Initial workup showed the tumor cells were negative for CK-7, CK20, CD45, CD10, ER, PA, synaptophysin, PAX-8, mammoglobin, RCC, HepPar1, TTF-1, and CD31, while positive for Vimentin. Additional stains show tumor cells are positive for CD20 and CD138, raises the possibility of plasma cell neoplasms. This case was sent to [place], [place] for hematopathology consultation and reviewed by Dr. Mercado from [facility], the diagnosis above reflects his opinion. Immunohistochemistry stains AE1/3, CD10, CD45, synaptophysin, PAX-8, mammoglobin, RCC, HepPar1, TTF-1, Vimentin, and CD31 performed at [place], [place] ([id number]) interpreted at [facility]. Immunohistochemistry stains CK7, CK20, ER, PA performed and interpreted at [facility]. Positive and negative controls (internal if applicable) show appropriate results. This case was discussed with Dr. Díaz on 09/08/2019. Electronically Signed Esha Camacho M.D. Microscopic Description There is diffuse infiltration of plasmacytoid cells, with a phenotype of CD138+, CD20+, CD45-, AE1/AE3-. LIZBETH+ (very focal) (the above immunostain slides were provided by the client). These cells also negative for kappa-TAYLOR, lambda-TAYLOR; negative for CD56, CD117, and Cyclin D1, with a Ki-67 proliferative index around 1%. The findings are consistent with a plasmacytoma. Gross Description Received in formalin labeled "sacral bone biopsy," is a 0.7 x 0.4 x 0.1 cm aggregate of pratt soft tissue and possible bone fragments admixed with blood clot. The formalin is filtered and the specimen is entirely submitted in one cassette, following decalcification. 08/27/2019 [facility]27[facility]2019
== END 2019-09-02 17:58 | disposition home health service (06) | DRG 824 ==
LOC: JER 16:41 → JERBED 08-24 00:18 → J8W 08-24 03:04
PROVIDERS: ADMIT Internal Medicine; ATTEND Internal Medicine
PROC: 0QB13ZX Excision of Sacrum, Percutaneous Approach, Diagnostic (ICD-10-PCS; principal; 2019-08-27)
DX: C90.30 Solitary plasmacytoma not having achieved remission (principal); C49.5 Malignant neoplasm of connective and soft tissue of pelvis; M51.16 Intervertebral disc disorders with radiculopathy, lumbar region; I10 Essential (primary) hypertension; E11.9 Type 2 diabetes mellitus without complications; Z85.3 Personal history of malignant neoplasm of breast; R20.2 Paresthesia of skin; D72.829 Elevated white blood cell count, unspecified; K59.00 Constipation, unspecified
CPT/HCPCS: 20225; 36415; 71045-TC-FY; 71260-TC; 72131-TC; 72148-TC; 74177-TC; 76098-TC-FY; 76380-TC; 78306-TC; 80048; 80053; 81003; 82962; 83036; 83735; 84100; 85025; 85027; 85610; 85730; 86850; 86900; 86901; 87899; 88305-TC; 88311-TC; 88341-TC; 93005; 93010; 94010; 97116-GP; 97161-GP; 99284-25; A9503; J0131; J1100; J7030; Q9967